=== PATIENT | male | born 1940 | race Caucasian/White ===

== ENCOUNTER 2019-06-28 05:36 | Outpatient (RCR) | payer MEDICARE, SELFPAY | END 2019-07-20 00:01 | LOC: ONCMED 05:36 | PROVIDERS: Family Provider Family Medicine; PCP Radiology Radiation Oncology; Visit Provider Internal Medicine Medical Oncology | DX: C34.11 Malignant neoplasm of upper lobe, right bronchus or lung (principal); Z85.810 Personal history of malignant neoplasm of tongue; R60.0 Localized edema; D69.6 Thrombocytopenia, unspecified; I10 Essential (primary) hypertension; E78.5 Hyperlipidemia, unspecified; E03.9 Hypothyroidism, unspecified; I48.20 Chronic atrial fibrillation, unspecified; Z79.01 Long term (current) use of anticoagulants; Z92.21 Personal history of antineoplastic chemotherapy; Z92.3 Personal history of irradiation; Z86.79 Personal history of other diseases of the circulatory system | CPT/HCPCS: 36415; 71260; 80053; 85025; 99213 ×2; Q9967 ==

== ENCOUNTER 2019-09-23 10:15 | Outpatient (CLI) | payer MEDICARE, SELFPAY ==
[2019-09-23 11:44] LABS: Basophils % 0.5 %; Eosinophils # 0.3 10^3/uL (0.0-0.8); Eosinophils % 7.7 %; Hematocrit 38.6 % (42.0-52.0); Hemoglobin 12.3 g/dL (11.7-16.6); Lymphocytes # 0.8 10^3/uL (0.8-4.8); Lymphocytes % 20.9 %; Mean Corpuscular HGB Conc 31.9 g/dL (30.0-36.0); Mean Corpuscular Hemoglobin 32.4 pg (28.0-34.0); Mean Corpuscular Volume 101.6 fL (80-94); Mean Platelet Volume 10.9 fL (7.4-10.4); Monocytes # 0.3 10^3/uL (0.2-0.9); Monocytes % 6.2 %; Neutrophils # 2.6 10^3/uL (1.8-7.7); Neutrophils % 64.5 %; Nucleated Red Blood Cells % 0 %; Platelet Count 113 10^3/cmm (130-400); Red Cell Distribution Width 14.5 % (12.1-15.1)
[2019-09-23 12:21] LABS: Alanine Aminotransferase 14 U/L (0-41); Albumin Level 4.1 g/dL (3.5-5.2); Alkaline Phosphatase 98 IU/L (40-130); Anion Gap 15.2 (5-19); Aspartate Amino Transferase 22 U/L (0-40); Blood Urea Nitrogen 18 mg/dL (8-23); Calcium 10.2 mg/dL (8.5-10.5); Carbon Dioxide 24 mmol/L (22-29); Chloride 104 mmol/L (98-107); Globulin 3.4 g/dL (1.3-4.6); Glucose 101 mg/dL (65-115); Potassium 4.2 mmol/L (3.5-5.1); Sodium 139 mmol/L (136-145); Total Bilirubin 0.4 mg/dL (0.15-1.2); Total Protein 7.5 g/dL (6.6-8.7)
== END 2019-09-23 10:16 | disposition home or self-care (01) ==
LOC: ONCMED 12:13
PROVIDERS: Family Provider Family Medicine; Visit Provider Internal Medicine Medical Oncology
DX: C34.11 Malignant neoplasm of upper lobe, right bronchus or lung (principal)
CPT/HCPCS: 80053; 85025

== ENCOUNTER 2019-09-24 08:32 | Outpatient (CLI) | payer MEDICARE, SELFPAY ==
--- NOTE | 2019-09-24 08:38 | CT_ITS ---
WS: [id number] CT CHEST TECHNIQUE: Contrast enhanced CT of the chest with coronal and sagittal reformatted images. CLINICAL INFORMATION: MALIGNANT NEOPLASM OF LUNG COMPARISON: CT June 24, 2019 DLP: 985.[address] scans at [facility] use at least one of these dose optimization techniques: automat ed exposure control; mA and/or kV adjustment per patient size (includes targeted exams where dose is matched to clinical indication); or iterative reconstruction. FINDINGS: Again seen is the spiculated right upper lobe neoplasm today measuring 2.0 x 1.5 cm decreased in size from previous. Previously this measured 2.6 x 1.6 cm. Surrounding consolidation and air bronchograms are similar in appearance with fibrosis in the right lung apex. Associated parenchymal scarring. Sub segmental atelectasis along the right upper lobe hilum and superior segment right lower lobe are samantha lar in appearance. Left lung is well aerated. Cardiomegaly. Calcified hilar nodes. No new mediastinal or hilar lymphaden opathy. Coronary calcification. Sternotomy. Small esophageal hiatal hernia. Small left adrenal nodule measuring 11 mm likely adenoma unchanged. Hypertrophic changes thoracic spine. Small pericardial eff usion/pericardial thickening is similar in appearance. CT/CT chest w con* [id number] IMPRESSION: 1. Interval improvement in the right upper lobe neoplasm with dominant mass to day measuring 1.5 x 2.0 CM. 2. Stable parenchymal fibrosis with surrounding consolidation and air bronchog jovany in the right upper lobe medially and superior segment of the adjacent righ t lower lobe. 3. Right hilar thickening/lymphadenopathy unchanged. 4. Moderate to advanced chronic emphysematous changes. 5. Stable left adrenal adenoma. 6. Small esophageal hiatal hernia.
[2019-09-24] MEDS: iodixanol 320 mg/mL 100mL Btl IV (08:55)
== END 2019-09-24 08:33 | disposition home or self-care (01) ==
LOC: ONCMED 08:34
PROVIDERS: Family Provider Family Medicine; PCP Family Medicine; Visit Provider Radiology Radiation Oncology
DX: C34.11 Malignant neoplasm of upper lobe, right bronchus or lung (principal); J43.9 Emphysema, unspecified; D35.02 Benign neoplasm of left adrenal gland; K44.9 Diaphragmatic hernia without obstruction or gangrene; Z92.21 Personal history of antineoplastic chemotherapy; Z92.3 Personal history of irradiation
CPT/HCPCS: 71260; Q9967

== ENCOUNTER 2019-09-27 10:05 | Outpatient (CLI) | payer MEDICARE, SELFPAY ==
--- NOTE | 2019-09-27 12:34 | ONCRAD EPV_ITS ---
Radiation Oncology Established Patient Visit Patient: Adilia MR#: [id number] : 1940> Age: 79> Sex: Male> Dictated by: Dr. Dallin Gonzalez Date of Service: 09/27/2019 Referring Physician(s) : Dr. 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 He has had several follow up evaluations by Dr. Keene and Dr. Santacruz, with no evidence of tumor progression. . Current Medications: Allopurinol, atorvastatin Calcium, cARBOplatin, cefTRIAXone Sodium, dexamethasone, dexamethasone Sodium Phosphate, diltiaZEM CD, diphenhydrAMINE HCl, famotidine in NaCl, furosemide, klor-Con M10, levalbuterol Tartrate, levaquin, levothyroxine Sodium, lisinopril, metoprolol Tartrate, miraLax, nitroglycerin, pACLitaxel, palonosetron HCl, prochlorperazine Maleate, tamsulosin HCl, warfarin Sodium, zithromax. Vital Signs: Performed on 09/27/2019 10:40 AM Height - 71.00 in, Weight - 249.4 lbs (high), BSA - 2.32 sq.m, BMI - 34.78 (high), Temperature - 97.6 f (low), Pulse - 68 /min, Respiration - 26 /min, O2 Sat - 96 %, Pain - 0 and BP - 94/ 69 mm(hg). Physical Exam: General: Elderly gentleman, lert and oriented.. No acute distress. HEENT: Oral cavity is clear without lesions, masses or ulcers. Orpharynx normal to clinical evaluation. NECK: Supple without susubmandibular, jugular or supraclavicular lymphadenopathy. LUNGS: Clear to auscultation bilaterally without rales, rhonchi or wheeze. MUSCULOSKELETAL: No tenderness or percussion pain over the axial skeleton, scapulae or pelvis. ABDOMEN: Not examined. EXTREMITIES: Limited motor and sensory examination are grossly intact and symmetric bilaterally. Lab: None pending. Test performed on 09/23/2019 9:20 AM Creatinine - 1.3 mg/dl (high), Test performed on 09/23/2019 10:15 AM RBC - 3.80 10 6/ul (low), HCT - 38.6 % (low), MCV - 101.6 fl (high), Platelet Count - 113 10 3/cmm (low) and MPV - 10.9 fl (high). Pathology- malignant neoplasm of upper lobe, right bronchus of lung, Diagnosed 12/16/2018 (active) stage ib, t2a, n0, m0, Primary, r91.1 - solitary pulmonary nodule, Diagnosed 10/18/2016 (active), malignant neoplasm of base of tongue, Diagnosed 06/18/2016 (active) stage xT3N0, mx, Imaging Studies CT scan of the chest performed on 09-24-19 showed speculated right upper lobe neoplasm 2.0 X 1.5 cm, decreasing from 2.6 X 1.6 cm. Changes suggesting fibrosis in RUL Left lung is well aireated. Small left adrenal nodule, a11 mm, unchanged, likely adenoma. Advanced chronic emphysematous changes. Small hiatal hernia.. Impression: Base of the tongue neoplasm with no clinically apparent tumor recurrence. Continuous regression of RUL neoplasm. Disposition Patient scheduled with Dr. Santacruz in 6 months. We will give him appointment to see Dr. García following Mr. Yusuf visit with Dr. Santacruz Time spent with patient- 20 minutes. Preparation of follow up note- 30 minutes. Signed by: 09/27/2019 12:32:52 PM <<Signature on File>> Time spent with patient: CPT Code: CPT Code:
--- NOTE | 2019-09-28 08:00 | ONC FU_ITS ---
Dr. Santacruz Patient Follow-Up Note Patient: Turner Llanos Unit #: [id number]: 1940 Dicatated By: Jb Santacruz M.D.Date of Visit:Sep 27, 2019 Onc Med Follow-up/Prog Note Chief Complaint: Oral pharyngeal carcinoma/lung cancer. 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 By clinical evaluation the lung cancer was stage IB (T2a, N0, M0). He had initially presented to Dr. Nichols with hemoptysis, which had started back in February 2016. He was referred to Dr. Trevizo. Had evaluation with chest CT on 04/25/2016. It showed a right apical subpleural nodule subjacent to the right innominate artery. It measured 2 x 2 centimeters. There is no associated hilar or mediastinal adenopathy and there is no evidence of other metastatic disease. He had further evaluation with PET/CT on 05/04/2016. It showed an FDG avid 2 cm nodule in the right lung apex, SUV 5.9. Also noted was a hypermetabolic focus in the left base of tongue, SUV 15.6. There was no associated cervical, clavicular, mediastinal, or hilar adenopathy. He was referred to Dr. Keene. On 06/18/2016 he underwent microdirect laryngoscopy. He was noted to have an ulcerated lesion at the left base of tongue. Biopsy showed invasive moderately differentiated squamous cell carcinoma, P 16 positive. He was then referred to Dr. Eduardo in [place]. he had further evaluation with CT and MRI of the neck. On 08/28/2016 he underwent direct laryngoscopy, bronchoscopy, and cervical esophagoscopy. He was found to have a friable tumor involving the bilateral base of tongue with extension into the vallecula. It was inseparable from the lingual surface of the epiglottis. There was normal-appearing glottic larynx, piriform sinuses, trachea, and first order bronchi, and cervical esophagus. Biopsies from both left and right base of tongue again showed invasive moderately differentiated squamous cell carcinoma. He was then referred to Dr. Madrigal for further evaluation of the pulmonary nodule. Patient reportedly declined to have a lung biopsy due to the associated risk involved. Patient was deemed inoperable due to the local extent of the tumor and his underlying comorbidities. He was seen by Dr. García for consideration of chemoradiation for the oral pharyngeal cancer and for possible SBRT to the lung lesion. He then began radiation concurrently with high-dose cisplatin chemotherapy, cycle 1 day 1 on 10/28/2016. He tolerated his initial dose of chemotherapy without acute toxicity, but his further chemotherapy was held due to prolonged neutropenia. He was able to continue his radiation. He completed treatment on 12/13/2016 to a total dose of 7000 cGy. He did experience significant local toxicity, mainly severe sore throat and difficulty swallowing. He was treated empirically with fluconazole, which did cause a significant increase in his INR, but that subsequently resolved. He did not experience any bleeding or other complications. He had gradual resolution of his treatment related toxicity. His repeat chest CT on 01/27/2017 showed 8 mm pulmonary nodule at the right apex. It appeared stable compared to the PET/CT from October 2016, but it had decreased in size compared to the chest CT from April 2016. Restaging CT scans of the neck and chest on 07/02/2017 showed post treatment related radiation changes within the soft tissues of the neck, but with no cervical lymphadenopathy or other evidence of disease progression. The right upper lobe pulmonary nodule had increased significantly, to 1.7 x 2.1 cm. It was noted that the location would not likely be amenable to CT directed needle biopsy. Follow-up chest CT on 09/08/2018 showed further increase in the right upper lobe mass to 3.2 x 2.0 cm. It was noted to abut the mediastinal structures. Subcentimeter mediastinal and hilar lymph nodes were noted to be very similar in appearance to the prior study from June 2017. A restaging PET/CT on 09/26/2018 showed FDG avid right upper lobe mass measuring 3.5 x 3.1 cm, SUV 13.2, consistent with malignancy. There was no suspicious mediastinal adenopathy and there was no evidence of for recurrence of disease at the base of the tongue. He was again referred to Dr. Per Ledezma, and on 11/27/2018 he underwent bronchoscopy with transbronchial biopsy from the right upper lobe apical segment and EBUS with FNA biopsies of station 7 and station 4R lymph nodes. The trans-bronchial right upper lobe biopsy showed invasive moderately differentiated squamous cell carcinoma. The FNA lymph node biopsies were nondiagnostic. He began radiation concurrently with weekly carboplatin/Taxol chemotherapy on 12/21/2018. As of week 3 his chemotherapy was put on hold due to a drop in the neutrophil count to 1200. He was able to continue the radiation. He completed treatment on 02/08/2019. Due to his having stopped chemotherapy the total dosage was increased to 7000 cGy. During the radiation he did require antibiotic therapy for pneumonia. A follow-up chest CT on 03/23/2019 showed decrease in the size of the right upper lobe neoplasm measuring 2.3 x 3.7 x 2.9 cm. Also noted was improved postobstructive pneumonia in the right upper lobe laterally, but with persistent infiltrate and air bronchograms. There was patchy groundglass infiltrate in the right lower lobe which appeared to have progressed from the previous study. A left adrenal gland nodule appeared stable. He was recommended to continue observation/expectant management. Restaging PET/CT on 06/24/2019 showed interval improvement in the right upper lobe neoplasm measuring 1.6 x 2.6 cm. There did appear to be increased subsegmental atelectasis and consolidation in the right upper lobe medially and in the superior segment of the right lower lobe medially. There was resolution of previously described hazy groundglass infiltrates in the right lower lobe. The left adrenal lesion appeared stable, consistent with adenoma. There was no evidence of disease progression. He continued on observation/expectant management for the head/neck and the lung cancers. In April 2019 he had another episode of visual loss in the left eye. His head MRI showed foci of remote lacunar infarcts, but there were no acute findings and there was no evidence of metastatic disease. Carotid Doppler study showed no evidence of significant carotid artery stenosis. His other medical illnesses include hypertension, hyperlipidemia, and hypothyroidism. 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 He has chronic atrial fibrillation and chronic lower extremity edema. He also has a history of chronic thrombocytopenia. He is a nonsmoker. He does not drink alcohol. INTERIM HISTORY: Surveillance chest CT on 09/24/2019 showed interval improvement in the right upper lobe neoplasm with the dominant mass measuring 1.5 x 2.0 CM. There was stable parenchymal fibrosis with surrounding consolidation and air bronchograms in the right upper lobe medially and in the superior segment of the adjacent right lower lobe. Right hilar thickening/lymphadenopathy also appeared unchanged. He is seen a follow-up visit. He says he has been feeling fine. He says he does like to rest. His activity is limited to due weakness in his legs. He is doing light work. His ECOG score is 1. He has good appetite and his weight is stable. He has no fever or night sweats. He complains that his nose gets stuffed. He has just occasional cough. His breathing has been OK, but he sometimes has wheezing at night. He does not complain of chest pain. He has no GI complaints. Bladder function has been adequate with tamsulosin. He still has pain in his right shoulder and he also has pain in his knees. He does not complain of headache. He occasionally has dizziness. He has had no further episodes of visual loss. He complains that his legs get weak with activity. Medications: Allopurinol 1 Tablet (of 100 mg) Oral daily, Atorvastatin Calcium 0.5 Tablet (of 20 mg) Oral daily, DiltiaZEM CD 1 Capsule (of 240 mg) Capsule SR 24 HR Oral daily, Furosemide 1 (40 mg) Tablet Oral daily, Klor-Con M10 1 Tablet (of 20 meq) Tablet, controlled release Oral daily, Levalbuterol Tartrate 1 puff(s) (of 45 mcg/act) Aerosol Inhalation q 6 hours PRN, Levothyroxine Sodium 1 Tablet (of 125 mcg) Oral daily, Lisinopril 1 Tablet (of 2.5 mg) Oral daily, Metoprolol Tartrate 1 Tablet (of 50 mg) Oral b.i.d., MiraLax Pack Oral daily PRN, Nitroglycerin Tablet, sublingual Sublingual PRN, Tamsulosin HCl 2 (0.4 mg) Capsule Oral daily, Warfarin Sodium (5 mg) Tablet Oral Take as Directed Allergies: No Known Allergies. Review of Systems: Constitutional - His energy is about the same. He likes to rest. He has limited activity due to weakness in his legs, but he is still doing light work. His appetite is good and his weight is stable. No fever or night sweats. ECOG score is 1, Eyes - He had temporary loss of vision from the left eye, presumed to be due to stroke/TIA, ENMT - He complains that his nose gets stuffed. No mouth sores. No sore throat or difficulty swallowing, Hematologic/Lymphatic - No abnormal bruising or bleeding, Respiratory - No shortness of breath. He sometimes has wheezing at night. He has occasional cough. No pleuritic pain or hemoptysis, Cardiovascular - No angina pain. No palpitations, Gastrointestinal - No nausea or vomiting. No heartburn or acid reflux. No diarrhea or constipation. No blood in the stool or black stools, Genitourinary (M) - No dysuria or hematuria. No urinary frequency. No urgency or incontinence, Musculoskeletal - He has had ongoing problems with pain in his right shoulder since the radiation. He also has pain in his knees. His legs get weak with activity, Neurologic - No headache. He occasionally has dizziness. No numbness/paresthesias. He had sudden visual loss in the left eye, which resolved. He has had no other focal neurologic symptoms, Psychiatric - No anxiety or depression. No insomnia. Vital Signs: Performed on Sep 27, 2019 10:40 Height - 71.00 in Weight - 249.4 lbs (HIGH) BSA - 2.32 sq.m BMI - 34.78 (HIGH) Temperature - 97.6 F (LOW) Pulse - 68 /min Respiration - 26 /min BP - 94/69 mm(hg) O2 Sat - 96 % Pain - 0 Physical Examination: Constitutional - He appears somewhat weak generally, Eyes - Sclerae nonicteric. Conjunctivae clear, ENMT - No lesions noted in the oral cavity, Hematologic/Lymphatic - No cervical, clavicular, or axillary adenopathy noted, Respiratory - Lungs show diminished air movement and slightly coarse breath sounds bilaterally. There is no wheezing, Cardiovascular - Heart rhythm is irregular. The rate is controlled. There is a II/ systolic murmur. There is no gallop or rub noted, Abdomen - Soft. Liver and spleen are not enlarged. There is no abdominal mass or ascites noted and there is no inguinal adenopathy, Extremities - He has limited range of motion at the right shoulder joint. There are venous stasis changes bilaterally. There is 2+ lower extremity edema. He has good dorsalis pedis pulses bilaterally, Neurologic - No focal neurologic deficits noted. Lab/Imaging: Test performed on Sep 23, 2019 10:15 WBC 4.0 10 3/uL RBC 3.80 10 6/uL HGB 12.3 g/dL HCT 38.6 % MCV 101.6 fL MCH 32.4 pg MCHC 31.9 g/dL RDW 14.5 % Platelet Count 113 10 3/cmm MPV 10.9 fL Neutrophils 2.6 10 3/uL Lymphocytes 0.8 10 3/uL Monocytes 0.3 10 3/uL Eosinophils 0.3 10 3/uL Basophils 0.0 10 3/uL Neutrophil % 64.5 % Lymphocyte % 20.9 % Monocyte % 6.2 % Eosinophil % 7.7 % Basophils % 0.5 % Test performed on Sep 23, 2019 09:20 Sodium 139 mmol/L Potassium 4.2 mmol/L Chloride 104 mmol/L CO2 24 mmol/L Anion Gap 15.2 BUN 18 mg/dL Creatinine 1.3 mg/dL Cr Clearance (Est) 70.9700 mL/min Glucose 101 mg/dL Calcium 10.2 mg/dL Protein, Total 7.5 g/dL Albumin 4.1 g/dL Globulin 3.4 g/dL Bilirubin, Total 0.4 mg/dL ALT (SGPT) 14 U/L AST (SGOT) 22 U/L Alkaline Phosphatase 98 IU/L Impression: 1. Patient with enlarging, FDG avid solitary pulmonary nodule in the upper lobes the right lung, confirmed to be moderately differentiated squamous cell carcinoma. By clinical evaluation his disease was stage IB (T2a, N0, M0). It appeared to be inoperable due to its location adjacent to mediastinal structures. 2. 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 He underwent radiation concurrently with high-dose cisplatin chemotherapy. He completed his radiation on 12/13/2016 to a total dose of 7000 cGy. He received day 1 cisplatin only, as further chemotherapy was held due to persistent neutropenia. He appeared to have a complete response by follow-up PET/CT studies. His other medical illnesses include: 3. Hypertension. 4. Hyperlipidemia. 5. Hypothyroidism. 6. Chronic atrial fibrillation, on anticoagulation with warfarin. 7. He underwent aortic valve repair and repair of thoracic aortic aneurysm in May 2013. 8. He has chronic lower extremity edema. 9. He has a history of chronic thrombocytopenia. He began radiation concurrently with weekly carboplatin/Taxol chemotherapy on 12/21/2018. His chemotherapy was put on hold at week 3 due to neutropenia. He continued radiation. He completed treatment on 02/08/2019. Due to his having stopped chemotherapy, the total dosage was increased to 7000 cGy. During the radiation he had required antibiotic therapy for pneumonia. A repeat chest CT on 04/02/2019 did show some decrease in the size of the right upper lobe neoplasm, and there was improved postobstructive pneumonia, though with persistent infiltrate and air bronchograms. He was then followed on observation/expectant management. During followup he has had persistent pain and limited range of motion at the right shoulder. He has had limited activity tolerance due to weakness in his legs. His surveillance CT scans have shown further decrease in the right upper lobe pulmonary nodule. Overall, he has been doing pretty well clinically with no evidence of recurrence/progression of the head/neck or the lung cancers. Plan: He remains on observation/expectant management. I will see him again in 6 months. Signed By: Jb Santacruz M.D. <<Signature on File>>
== END 2019-09-27 10:06 | disposition home or self-care (01) ==
PROVIDERS: Family Provider Family Medicine; PCP Family Medicine; Visit Provider Internal Medicine Medical Oncology
DX: C34.11 Malignant neoplasm of upper lobe, right bronchus or lung (principal); Z85.810 Personal history of malignant neoplasm of tongue; D35.02 Benign neoplasm of left adrenal gland; I10 Essential (primary) hypertension; E78.5 Hyperlipidemia, unspecified; E03.9 Hypothyroidism, unspecified; I48.20 Chronic atrial fibrillation, unspecified; R60.0 Localized edema; D69.6 Thrombocytopenia, unspecified; J43.9 Emphysema, unspecified; K44.9 Diaphragmatic hernia without obstruction or gangrene; Z79.01 Long term (current) use of anticoagulants; Z92.3 Personal history of irradiation; Z92.21 Personal history of antineoplastic chemotherapy; Z87.01 Personal history of pneumonia (recurrent); Z95.2 Presence of prosthetic heart valve
CPT/HCPCS: 99213; G0463

== ENCOUNTER 2019-10-24 12:57 | Emergency (ER) | payer MEDICARE, SELFPAY ==
[2019-10-24 12:58] VITALS: BMI 34.5
--- NOTE | 2019-10-24 12:58 | ECG_ITS ---
Measurements Intervals [place] Rate: 68 P: WA: 0 QRS: 76 QRSD: 96 T: 63 QT: 412 QTc: 441 ATRIAL FIBRILLATION LOW QRS VOLTAGE IN EXTREMITY LEADS [QRS DEFLECTION < 0.5 mV IN LIMB LEADS] ABNORMAL RHYTHM ECG Compared to ECG 02/25/2019 14:49:23 Left-axis deviation no longer present Myocardial infarct finding no longer present Electronically Signed On 10-24-2019 21:11:54 CDT by Jean Robles M.D. [email or web address]
[2019-10-24 13:03] VITALS: BP 111/81; PULSE 73; RESP 20; TEMP 36.7; O2SAT 94
--- NOTE | 2019-10-24 13:08 | CTR_ITS ---
PROCEDURE INFORMATION: Exam: CT Head Without Contrast Exam date and time: 10/24/2019 1:26 PM Age: 79 years old Clinical indication: Patient HX: C/O dizziness x 2 days TECHNIQUE: Imaging protocol: Computed tomography of the head without contrast. Total DLP: 1920.07 mGy-cm Radiation optimization: All CT scans at this facility use at least one of these dose optimization techniques: automated exposure control; mA and/or kV adjustment per patient size (includes targeted exams where dose is matched to clinical indication); or iterative reconstruction. COMPARISON: MRI Head w/wo* [id number] 05/14/2019 1:34 PM FINDINGS: Brain: Symmetric prominence of the cortical sulci. Small-vessel ischemic change with multiple lacunar infarcts. No acute cortical infarct, mass effect, or intracranial hemorrhage. Ventricles: Normal configuration of the ventricles. Bones/joints: No acute calvarial pathology. Sinuses: No sinus fluid. Mastoid air cells: No mastoid effusion. Soft tissues: Unremarkable soft tissues. Vasculature: Vascular calcification. CT/CT head wo con* [id number] IMPRESSION: Atrophy and multifocal small-vessel ischemic change. Radiation Dose CTDIVOL = (mGy): DLP = 1920.07 (mGy-cm)
--- NOTE | 2019-10-24 13:10 | W.ED.DIZZY ---
HPI - Dizziness General: Chief Complaint: Dizziness Stated Complaint: DIZZY Time Seen by Provider: 10/24/19 12:59 Source: patient and EMS Mode of arrival: EMS Limitations: no limitations History of Present Illness: HPI Narrative: Patient is an 79-year-old male states he has been having generalized dizziness over the last 2 days. He states he just feels weak at times. Tried to get further history patient is a poor historian. He is unable to explain if he feels like the room spinning or if he is going to pass out. He states he was mainly concerned because he took his blood pressure at home and it was in the 60s. Pressures been normal by ambulance and here. He was using a wrist cuff at home. He denies any chest pain or shortness of breath. He denies any fever. He did have radiation states he has had some wheezing since then. He used albuterol states he ran out of his inhaler. MD elicited complaint: dizziness Onset (ago): day(s) Timing: gradual onset Severity: mild Exacerbating factors: nothing Relieving factors: nothing Associated symptoms: Denies chest pain, chills, headache(s), nausea or vomiting Review of Systems Const: Denies: fever, chills, body aches or change in appetite Eyes: Denies: blurry vision or eye discomfort ENMT: Denies: throat pain or dental pain Card: Denies: chest pain Resp: Denies: shortness of breath GI: Denies: abdominal pain, nausea, vomiting or diarrhea : Denies: painful urination Musc: Denies: neck pain or back pain Skin/Breast: Denies: rash Neuro: Reports: dizziness; Denies: headache Psych: Denies: depression Wesley/Lymph: Denies: easy bruising All/Imm: Denies: hives [facility] PFSH: Social History Smoking and tobacco status: never smoked Physical Exam Const: COMMON NORMALS: no apparent distress, oriented x3 and healthy appearing HENMT: COMMON NORMALS: normocephalic and head/scalp atraumatic HEAD & SCALP: normocephalic and atraumatic Eye: COMMON NORMALS: PERRL and EOMs intact bilaterally PUPIL: Yes PERRL Neck/C-Spine: COMMON NORMALS: full ROM and supple Chest: COMMONS NORMALS: inspection of chest normal and palpation of chest normal Resp: COMMON NORMALS: normal respiratory effort, no retractions and no use of accessory muscles AUSCULTATION: wheezes Cardio: COMMON NORMALS: regular rate, regular rhythm and no murmurs RATE: regular rate RHYTHM: regular rhythm GI: COMMON NORMALS: normal to inspection, nondistended, normoactive bowel sounds, soft to palpation, non-tender and no masses PALPATION: Yes soft Extremity: COMMON NORMALS: normal to inspection and full ROM Neuro: COMMON NORMALS: oriented x3, moves all extremities and no focal motor deficits Psych: COMMON NORMALS: mental status grossly normal, thought process normal and cooperative THOUGHT PROCESS: normal thought process Skin: COMMON NORMALS: no rashes or lesions noted and no wounds GENERAL SKIN EXAM: no rashes or lesions noted Course Vital Signs: Vital signs: Vital Signs Temperature 98.1 F 10/24/19 13:03 Pulse Rate 90 10/24/19 15:12 Respiratory Rate 18 10/24/19 15:12 Blood Pressure 123/85 10/24/19 15:12 Pulse Oximetry 96 10/24/19 15:12 MDM - Dizziness MDM Narrative: Medical decision making narrative: Patient presents with dizziness likely some vertigo in nature. Patient's symptoms resolved with meclizine and he is able to ambulate the halls without any difficulties. Patient's lab work here is normal. X-ray does show some increased lung markings likely from his radiation. He does have some wheezing but he has had no cough or fever. Will give him a steroid along with albuterol Hayter and antibiotics. He is to follow-up with his oncologist in 3 to 7 days and return to the ER if worsening. He understands and agrees to plan. Lab Data: Labs: Lab Results 10/24/19 10/24/19 Range/Units 13:15 13:15 WBC 3.6 L (4.0-10.0) 10^3/ uL RBC 3.54 L (4.1-5.3) 10^6/u L Hgb 11.4 L (11.7-16.6) g/dL Hct 36.7 L (42.0-52.0) % MCV 103.7 H (80-94) fL MCH 32.2 (28.0-34.0) pg MCHC 31.1 (30.0-36.0) g/dL RDW 14.7 (12.1-15.1) % Plt Count 102 L (130-400) 10^3/c mm MPV 10.2 (7.4-10.4) fL Neut % (Auto) 74.8 % Lymph % (Auto) 12.0 % [place] % (Auto) 5.6 % Eos % (Auto) 6.7 % Baso % (Auto) 0.6 % Neut # (Auto) 2.7 (1.8-7.7) 10^3/u L Lymph # (Auto) 0.4 L (0.8-4.8) 10^3/u L [place] # (Auto) 0.2 (0.2-0.9) 10^3/u L Eos # (Auto) 0.2 (0.0-0.8) 10^3/u L Baso # (Auto) 0.0 (0.0-0.1) 10^3/u L Nucleated RBC % (a uto) 0 % Nucleated RBCs # 0.0 /100WBC Sodium 133 L (136-145) mmol/L Potassium 4.4 (3.5-5.1) mmol/L Chloride 98 (98-107) mmol/L Carbon Dioxide 24 (22-29) mmol/L Anion Gap 15.4 (5-19) BUN 15 (8-23) mg/dL Creatinine 1.3 H (0.7-1.2) mg/dL Glucose 119 H (65-115) mg/dL Calculated Osmolal ity 273 L (285-295) mOsm/k g Calcium 10.1 (8.5-10.5) mg/dL Total Bilirubin 0.5 (0.15-1.2) mg/dL AST 27 (0-40) U/L ALT 17 (0-41) U/L Alkaline Phosphata se 97 (40-130) IU/L Total Protein 7.0 (6.6-8.7) g/dL Albumin 3.9 (3.5-5.2) g/dL Globulin 3.1 (1.3-4.6) g/dL Imaging Data^: CT Head: Attestation: I personally reviewed and interpreted this imaging study as follows: Radiologist's impression: [facility] [address] [place] [address] CT Scan Report Signed Patient: Turner Llanos Unit #: [id number] : 1940 Age/Sex: 79 / M ADM Date: 10/24/19 Loc: ER Room/Bed: Attending Dr: Ordering Provider/Ordering MD: Laura Chavez MD Date of Service: 10/24/19 Procedure(s): CT head wo con* [id number] Accession Number(s): [id number] Report Number: [id number] PROCEDURE INFORMATION: Exam: CT Head Without Contrast Exam date and time: 10/24/2019 1:26 PM Age: 79 years old Clinical indication: Patient HX: C/O dizziness x 2 days TECHNIQUE: Imaging protocol: Computed tomography of the head without contrast. Total DLP: 1920.07 mGy-cm Radiation optimization: All CT scans at this facility use at least one of these dose optimization techniques: automated exposure control; mA and/or kV adjustment per patient size (includes targeted exams where dose is matched to clinical indication); or iterative reconstruction. COMPARISON: MRI Head w/wo* [id number] 05/14/2019 1:34 PM FINDINGS: Brain: Symmetric prominence of the cortical sulci. Small-vessel ischemic change with multiple lacunar infarcts. No acute cortical infarct, mass effect, or intracranial hemorrhage. Ventricles: Normal configuration of the ventricles. Bones/joints: No acute calvarial pathology. Sinuses: No sinus fluid. Mastoid air cells: No mastoid effusion. Soft tissues: Unremarkable soft tissues. Vasculature: Vascular calcification. CT/CT head wo con* [id number] IMPRESSION: Atrophy and multifocal small-vessel ischemic change. 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 EKG Data^: EKG 1: Attestation: I personally reviewed and interpreted this EKG as follows: EKG interpretation date: 10/24/19 EKG interpretation time: 13:16 Interpretation: afib hr [address] or t wave abnormalities qrs 96 qtc 430 Discharge Plan Discharge Patient Disposition: Home, Self-Care Clinical Impression: Dizziness, Bronchitis Condition: Stable Prescriptions: New albuterol sulfate 90 mcg/actuation HFA aerosol inhaler 2 inh INHALATION Q6H Qty: 8 RF: 0 doxycycline hyclate 100 mg capsule 100 mg PO BID 10 Days Qty: 20 RF: 0 No Action lisinopril 2.5 mg tablet 2.5 mg PO DAILY Qty: 90 RF: 3 furosemide 40 mg tablet 40 mg PO DAILY RF: 0 atorvastatin 20 mg tablet 10 mg PO DAILY RF: 0 Cartia XT 240 mg capsule,extended release 24hr 240 mg PO DAILY RF: 0 allopurinol 100 mg tablet 100 mg PO DAILY RF: 0 tamsulosin 0.4 mg capsule 0.8 mg PO DAILY RF: 0 levothyroxine 125 mcg tablet 125 mcg PO QAM RF: 0 warfarin 5 mg tablet See Rx Instructions .ROUTE .COMPLEX RF: 0 metoprolol tartrate 50 mg tablet 50 mg PO BID RF: 0 potassium chloride 20 mEq tablet extended release 20 meq PO DAILY RF: 0 Discharge Orders: Discharge Order (Routine); Ordered 10/24/19 Ordered By: Laura Chavez Referrals: Miguel Nichols [Primary Care Provider] - Discharge Diet: Advance as tolerated Discharge Activity: Resume usual activity Patient Instructions: Acute Bronchitis (ED), Dizziness (ED) Discharge Date/Time: 10/24/19 15:47 Coding Level of Care Code 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
[2019-10-24 13:19] VITALS: BP 108/82; BP 115/78; BP 118/73; PULSE 68; PULSE 70; PULSE 82
[2019-10-24] MEDS: sodium chloride 0.9% 500 ML IV (13:27)
[2019-10-24] MEDS: meclizine 25 mg tablet PO (13:27)
[2019-10-24 13:28] LABS: Basophils % 0.6 %; Eosinophils # 0.2 10^3/uL (0.0-0.8); Eosinophils % 6.7 %; Hematocrit 36.7 % (42.0-52.0); Hemoglobin 11.4 g/dL (11.7-16.6); Lymphocytes # 0.4 10^3/uL (0.8-4.8); Mean Corpuscular HGB Conc 31.1 g/dL (30.0-36.0); Mean Corpuscular Hemoglobin 32.2 pg (28.0-34.0); Mean Corpuscular Volume 103.7 fL (80-94); Mean Platelet Volume 10.2 fL (7.4-10.4); Monocytes # 0.2 10^3/uL (0.2-0.9); Monocytes % 5.6 %; Neutrophils # 2.7 10^3/uL (1.8-7.7); Neutrophils % 74.8 %; Nucleated Red Blood Cells % 0 %; Platelet Count 102 10^3/cmm (130-400); Red Blood Count 3.54 10^6/uL (4.1-5.3); Red Cell Distribution Width 14.7 % (12.1-15.1); White Blood Count 3.6 10^3/uL (4.0-10.0)
--- NOTE | 2019-10-24 13:42 | XR_ITS ---
WS: [id number] CHEST XRAY TECHNIQUE: Portable chest. CLINICAL INFORMATION: dissiness COMPARISON: April 12, 2019 FINDINGS: Heart: Cardiomegaly. Sternotomy. Lungs: Chronic emphysematous changes. Slight right suprahilar interstitial infiltrates.a Right axilla ry clips. Bones: Normal visualized bony structures. XR/XR chest 1V portable [id number] IMPRESSION: 1. Sternotomy with cardiomegaly. 2. Chronic emphysematous changes. 3. Slight patchy right suprahilar interstitial infiltrates. Recommend correlat ion for pneumonitis. No focal pneumonia.
[2019-10-24 13:52] LABS: Alanine Aminotransferase 17 U/L (0-41); Albumin Level 3.9 g/dL (3.5-5.2); Alkaline Phosphatase 97 IU/L (40-130); Anion Gap 15.4 (5-19); Aspartate Amino Transferase 27 U/L (0-40); Blood Urea Nitrogen 15 mg/dL (8-23); Calcium 10.1 mg/dL (8.5-10.5); Carbon Dioxide 24 mmol/L (22-29); Chloride 98 mmol/L (98-107); Globulin 3.1 g/dL (1.3-4.6); Glucose 119 mg/dL (65-115); Osmolality Calculated 273 mOsm/kg (285-295); Potassium 4.4 mmol/L (3.5-5.1); Sodium 133 mmol/L (136-145); Total Bilirubin 0.5 mg/dL (0.15-1.2)
[2019-10-24 14:33] VITALS: BP 119/85; PULSE 71; RESP 20; O2SAT 94
[2019-10-24] MEDS: ipratropium-albuterol 3 mL Neb INHALATION (14:50)
[2019-10-24 14:52] VITALS: PULSE 72; RESP 18; O2SAT 96
[2019-10-24] MEDS: dexamethasone 10 mg/mL INJ IVP (15:10)
[2019-10-24 15:12] VITALS: BP 123/85; PULSE 90; RESP 18; O2SAT 96
== END 2019-10-24 15:47 | disposition home or self-care (01) ==
PROVIDERS: Nurse Practitioner Family; Emergency Provider Emergency Medicine; Family Provider Family Medicine; PCP Family Medicine
DX: R42 Dizziness and giddiness (principal); J40 Bronchitis, not specified as acute or chronic
CPT/HCPCS: 12345; 36415; 70450; 71045; 80053; 85025; 93005; 94640; 96361; 96374; 99283; 99284; J1100; J7040; J8597

== ENCOUNTER 2020-04-06 09:57 | Outpatient (CLI) | payer MEDICARE, SELFPAY ==
--- NOTE | 2020-04-06 10:50 | CT_ITS ---
WS: [id number] CT CHEST WITH INTRAVENOUS CONTRAST HISTORY: LUNG CANCER TECHNIQUE: Contiguous 5 mm axial imaging performed on the thorax. Coronal and sagittal reformats are submitted. All CT scans at [facility] use at least one of these dose optimization techniq ues: automated exposure control; mA and/or kV adjustment per patient size (includes targeted exams wh ere dose is matched to clinical indication); or iterative reconstruction. CONTRAST: Omnipaque 300; 95 mL IV. DLP: 1039.19 mGy.cm COMPARISON: 09/24/2019, 06/24/2019, 09/08/2018 Lungs and central airway: Continued decrease in size of the spiculated nodule in the medial RIGHT upp er lobe now measuring 1.8 x 1.3 cm. Postobstructive atelectasis has minimally improved. 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 Pleural t hickening in the posterior RIGHT upper lobe is probably in part related due to the radiation therapy port. No new or worsening areas of pneumonia, atelectasis or mass. Pleura: No pleural effusions. Mild pleural thickening in the posterior RIGHT thorax. Heart and pericardium: Moderate enlargement of the heart. Circumferential pericardial effusion. Maxim um diameter of 1.5 cm posteriorly. Moderate increase in size of the effusion. RIGHT heart is not jamilah apsed. Mediastinum and pito: RIGHT paratracheal and parahilar soft tissue is unchanged. No worsening adenopa thy. Vessels: Moderate enlargement of the thoracic aorta with calcification. Pulmonary artery size is slig htly enlarged. RIGHT subclavian vein is not opacifying. This is probably due to phase of injection. 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 Upper abdomen: Hepatic and splenic granulomata. Moderate size hiatal hernia. 11 mm nodule LEFT adrena l gland is unchanged. Mild perinephric stranding around the superior aspect of each kidney. Mild anas arca. Osseous structures: Increase in thoracic kyphosis. No osteoblastic or osteolytic bone disease. CT/CT chest w con* [id number] IMPRESSION: 1. Continued slow decrease in size of the medial RIGHT upper lobe neoplasm now measuring 1.8 x 1.3 cm. Mild improvement in the postobstructive atelectasis RI GHT upper lobe and stable post radiation induced changes. 2. No change in the paratracheal and RIGHT hilar lymphoid and soft tissue thic kening. 3. Diffuse esophageal wall thickening is unchanged. 4. Mild increase in size of the pericardial effusion now measuring 1.5 cm maxi mum diameter. 5. Cardiomegaly. 6. Stable LEFT adrenal nodule which is probably an adenoma. 7. Soft tissue anasarca.
[2020-04-06 11:36] LABS: Blood Urea Nitrogen 16 mg/dL (8-23)
[2020-04-06] MEDS: iohexol 300 mg/mL 100 mL Btl IV (12:10)
== END 2020-04-06 09:58 | disposition home or self-care (01) ==
LOC: RAD 10:04
PROVIDERS: PCP Family Medicine; Visit Provider Internal Medicine Medical Oncology
DX: C34.11 Malignant neoplasm of upper lobe, right bronchus or lung (principal); J98.11 Atelectasis; I31.3 Pericardial effusion (noninflammatory); I51.7 Cardiomegaly; R60.1 Generalized edema
CPT/HCPCS: 36415; 71260; 82565; 84520

== ENCOUNTER 2020-04-10 07:26 | Outpatient (CLI) | payer MEDICARE, SELFPAY ==
[2020-04-10 08:23] LABS: Basophils % 0.5 %; Eosinophils # 0.2 10^3/uL (0.0-0.8); Hematocrit 40.3 % (42.0-52.0); Hemoglobin 12.6 g/dL (11.7-16.6); Lymphocytes % 23.9 %; Mean Corpuscular HGB Conc 31.3 g/dL (30.0-36.0); Mean Corpuscular Hemoglobin 33.1 pg (28.0-34.0); Mean Corpuscular Volume 105.8 fL (80-94); Mean Platelet Volume 10.8 fL (7.4-10.4); Monocytes # 0.2 10^3/uL (0.2-0.9); Neutrophils % 66.4 %; Nucleated Red Blood Cells % 0 %; Platelet Count 101 10^3/cmm (130-400); Red Blood Count 3.81 10^6/uL (4.1-5.3); Red Cell Distribution Width 14.6 % (12.1-15.1); White Blood Count 4.2 10^3/uL (4.0-10.0)
[2020-04-10 10:19] LABS: Alanine Aminotransferase 14 U/L (0-41); Albumin Level 4.2 g/dL (3.5-5.2); Alkaline Phosphatase 95 IU/L (40-130); Aspartate Amino Transferase 20 U/L (0-40); Blood Urea Nitrogen 19 mg/dL (8-23); Calcium 10.5 mg/dL (8.5-10.5); Carbon Dioxide 24 mmol/L (22-29); Chloride 104 mmol/L (98-107); Globulin 3.2 g/dL (1.3-4.6); Glucose 90 mg/dL (65-115); Osmolality Calculated 292 mOsm/kg (285-295); Sodium 140 mmol/L (136-145); Total Bilirubin 0.8 mg/dL (0.15-1.2); Total Protein 7.4 g/dL (6.6-8.7)
--- NOTE | 2020-04-11 06:42 | ONC FU_ITS ---
Dr. Santacruz Patient Follow-Up Note Patient: Turner Llanos Unit #: [id number]: 1940 Dicatated By: Jb Santacruz M.D.Date of Visit:Apr 10, 2020 Onc Med Follow-up/Prog Note Chief Complaint: Oral pharyngeal carcinoma/lung cancer. 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 By clinical evaluation the lung cancer was stage IB (T2a, N0, M0). He had initially presented to Dr. Nichols with hemoptysis, which had started back in February 2016. He was referred to Dr. Trevizo. Had evaluation with chest CT on 04/25/2016. It showed a right apical subpleural nodule subjacent to the right innominate artery. It measured 2 x 2 centimeters. There is no associated hilar or mediastinal adenopathy and there is no evidence of other metastatic disease. He had further evaluation with PET/CT on 05/04/2016. It showed an FDG avid 2 cm nodule in the right lung apex, SUV 5.9. Also noted was a hypermetabolic focus in the left base of tongue, SUV 15.6. There was no associated cervical, clavicular, mediastinal, or hilar adenopathy. He was referred to Dr. Keene. On 06/18/2016 he underwent microdirect laryngoscopy. He was noted to have an ulcerated lesion at the left base of tongue. Biopsy showed invasive moderately differentiated squamous cell carcinoma, P 16 positive. He was then referred to Dr. Eduardo in [place]. he had further evaluation with CT and MRI of the neck. On 08/28/2016 he underwent direct laryngoscopy, bronchoscopy, and cervical esophagoscopy. He was found to have a friable tumor involving the bilateral base of tongue with extension into the vallecula. It was inseparable from the lingual surface of the epiglottis. There was normal-appearing glottic larynx, piriform sinuses, trachea, and first order bronchi, and cervical esophagus. Biopsies from both left and right base of tongue again showed invasive moderately differentiated squamous cell carcinoma. He was then referred to Dr. Madrigal for further evaluation of the pulmonary nodule. Patient reportedly declined to have a lung biopsy due to the associated risk involved. Patient was deemed inoperable due to the local extent of the tumor and his underlying comorbidities. He was seen by Dr. García for consideration of chemoradiation for the oral pharyngeal cancer and for possible SBRT to the lung lesion. He then began radiation concurrently with high-dose cisplatin chemotherapy, cycle 1 day 1 on 10/28/2016. He tolerated his initial dose of chemotherapy without acute toxicity, but his further chemotherapy was held due to prolonged neutropenia. He was able to continue his radiation. He completed treatment on 12/13/2016 to a total dose of 7000 cGy. He did experience significant local toxicity, mainly severe sore throat and difficulty swallowing. He was treated empirically with fluconazole, which did cause a significant increase in his INR, but that subsequently resolved. He did not experience any bleeding or other complications. He had gradual resolution of his treatment related toxicity. His repeat chest CT on 01/27/2017 showed 8 mm pulmonary nodule at the right apex. It appeared stable compared to the PET/CT from October 2016, but it had decreased in size compared to the chest CT from April 2016. Restaging CT scans of the neck and chest on 07/02/2017 showed post treatment related radiation changes within the soft tissues of the neck, but with no cervical lymphadenopathy or other evidence of disease progression. The right upper lobe pulmonary nodule had increased significantly, to 1.7 x 2.1 cm. It was noted that the location would not likely be amenable to CT directed needle biopsy. Follow-up chest CT on 09/08/2018 showed further increase in the right upper lobe mass to 3.2 x 2.0 cm. It was noted to abut the mediastinal structures. Subcentimeter mediastinal and hilar lymph nodes were noted to be very similar in appearance to the prior study from June 2017. A restaging PET/CT on 09/26/2018 showed FDG avid right upper lobe mass measuring 3.5 x 3.1 cm, SUV 13.2, consistent with malignancy. There was no suspicious mediastinal adenopathy and there was no evidence of for recurrence of disease at the base of the tongue. He was again referred to Dr. Per Ledezma, and on 11/27/2018 he underwent bronchoscopy with transbronchial biopsy from the right upper lobe apical segment and EBUS with FNA biopsies of station 7 and station 4R lymph nodes. The trans-bronchial right upper lobe biopsy showed invasive moderately differentiated squamous cell carcinoma. The FNA lymph node biopsies were nondiagnostic. He began radiation concurrently with weekly carboplatin/Taxol chemotherapy on 12/21/2018. As of week 3 his chemotherapy was put on hold due to a drop in the neutrophil count to 1200. He was able to continue the radiation. He completed treatment on 02/08/2019. Due to his having stopped chemotherapy the total dosage was increased to 7000 cGy. During the radiation he did require antibiotic therapy for pneumonia. A follow-up chest CT on 03/23/2019 showed decrease in the size of the right upper lobe neoplasm measuring 2.3 x 3.7 x 2.9 cm. Also noted was improved postobstructive pneumonia in the right upper lobe laterally, but with persistent infiltrate and air bronchograms. There was patchy groundglass infiltrate in the right lower lobe which appeared to have progressed from the previous study. A left adrenal gland nodule appeared stable. He was recommended to continue observation/expectant management. Restaging PET/CT on 06/24/2019 showed interval improvement in the right upper lobe neoplasm measuring 1.6 x 2.6 cm. There did appear to be increased subsegmental atelectasis and consolidation in the right upper lobe medially and in the superior segment of the right lower lobe medially. There was resolution of previously described hazy groundglass infiltrates in the right lower lobe. The left adrenal lesion appeared stable, consistent with adenoma. There was no evidence of disease progression. He continued on observation/expectant management for the head/neck and the lung cancers. In April 2019 he had another episode of visual loss in the left eye. His head MRI showed foci of remote lacunar infarcts, but there were no acute findings and there was no evidence of metastatic disease. Carotid Doppler study showed no evidence of significant carotid artery stenosis. His other medical illnesses include hypertension, hyperlipidemia, and hypothyroidism. 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 He has chronic atrial fibrillation and chronic lower extremity edema. He also has a history of chronic thrombocytopenia. He is a nonsmoker. He does not drink alcohol. INTERIM HISTORY: His chest CT on 09/24/2019 showed interval improvement in the right upper lobe neoplasm with the dominant mass measuring 1.5 x 2.0 CM. There was stable parenchymal fibrosis with surrounding consolidation and air bronchograms in the right upper lobe medially and in the superior segment of the adjacent right lower lobe. Right hilar thickening/lymphadenopathy also appeared unchanged. With those findings he continued on observation/expectant management. Surveillance chest CT on 04/06/2020 showed continued decrease in the right upper lobe spiculated nodule measuring 1.8 x 1.3 cm. There was minimal improvement in postobstructive atelectasis. There were additional radiation changes in the right upper and right lower lobes. There was moderate enlargement of the heart with circumferential pericardial effusion, which had moderately increased in size. Right paratracheal and perihilar soft tissue appeared unchanged. There was no worsening adenopathy and no evidence of other metastatic disease. He is seen a follow-up visit. He has been feeling pretty good generally. His main complaint is that he cannot stand very long without his legs getting weak. He does have to ambulate with a cane. He is able to do light work at home. His ECOG score is 1. He has good appetite. He has no fever or night sweats. He sometimes has wheezing, but he does not complain of shortness of breath or cough, and he has not been having chest pain. He has no GI complaints. He has frequent urination when he takes furosemide, he does have some chronic swelling in his legs. He has pain in his left knee. He does not complain of headache or dizziness. He has no focal neurologic symptoms. Medications: Allopurinol 1 Tablet (of 100 mg) Oral daily, Atorvastatin Calcium 0.5 Tablet (of 20 mg) Oral daily, DiltiaZEM CD 1 Capsule (of 240 mg) Capsule SR 24 HR Oral daily, Furosemide 1 (40 mg) Tablet Oral daily, Klor-Con M10 1 Tablet (of 20 meq) Tablet, controlled release Oral daily, Levothyroxine Sodium 1 Tablet (of 125 mcg) Oral daily, Lisinopril 1 Tablet (of 2.5 mg) Oral daily, Metoprolol Tartrate 1 Tablet (of 50 mg) Oral daily, MiraLax Pack Oral daily PRN, Nitroglycerin Tablet, sublingual Sublingual PRN, Tamsulosin HCl 2 (0.4 mg) Capsule Oral daily, Warfarin Sodium (5 mg) Tablet Oral Take as Directed Allergies: No Known Allergies. Review of Systems: Constitutional - He has been feeling pretty good. He has limited activity because his legs are weak. Appetite is good. He has no fever or night sweats. ECOG score is 1, ENMT - No sinus congestion/drainage. No mouth sores. No sore throat or difficulty swallowing, Hematologic/Lymphatic - He has easy bruising, Respiratory - He sometimes has wheezing but he does not complain of shortness of breath and he does not have cough. No pleuritic pain or hemoptysis, Cardiovascular - No angina pain. No palpitations, Gastrointestinal - No nausea or vomiting. No heartburn or acid reflux. No diarrhea or constipation. No blood in the stool or black stools, Genitourinary (M) - No dysuria or hematuria. He has urinary frequency. No urgency or incontinence, Musculoskeletal - He has pain in his left knee. He cannot stand very long without his legs getting weak. He uses a cane to ambulate, Integumentary - No skin rash, Neurologic - No headache or dizziness. No numbness or tingling. No other focal neurologic symptoms, Psychiatric - No anxiety or depression. No insomnia. Vital Signs: Performed on Apr 10, 2020 08:52 Height - 71.00 in Weight - 243.8 lbs (LOW) BSA - 2.29 sq.m BMI - 34.00 (HIGH) Temperature - 97.6 F (LOW) Pulse - 72 /min Respiration - 22 /min BP - 116/71 mm(hg) O2 Sat - 96 % Pain - 0 Physical Examination: Constitutional - He appears somewhat weak generally, Eyes - Sclerae nonicteric. Conjunctivae clear, ENMT - No lesions noted in the oral cavity, Hematologic/Lymphatic - No cervical, clavicular, or axillary adenopathy noted, Respiratory - Lungs show some decrease in air movement bilaterally. His breath sounds are slightly coarse. There is no wheezing noted, Cardiovascular - Heart rhythm is irregular. There is a II/ systolic murmur. There is no gallop or rub noted, Abdomen - Soft. Liver and spleen are not enlarged. There is no abdominal mass or ascites noted and there is no inguinal adenopathy, Extremities - There are venous stasis changes bilaterally. There is mild edema. There are purpuric lesions on both arms, Neurologic - No focal neurologic deficits noted. Lab/Imaging: Test performed on Apr 10, 2020 07:48 Sodium 140 mmol/L Potassium 4.0 mmol/L Chloride 104 mmol/L CO2 24 mmol/L Anion Gap 16.0 BUN 19 mg/dL Creatinine 1.3 mg/dL Cr Clearance (Est) 69.7600 mL/min Glucose 90 mg/dL Osmolality - Calculated 292 mOsm/kg Calcium 10.5 mg/dL Protein, Total 7.4 g/dL Albumin 4.2 g/dL Globulin 3.2 g/dL Bilirubin, Total 0.8 mg/dL ALT (SGPT) 14 U/L AST (SGOT) 20 U/L Alkaline Phosphatase 95 IU/L WBC 4.2 10 3/uL RBC 3.81 10 6/uL HGB 12.6 g/dL HCT 40.3 % MCV 105.8 fL MCH 33.1 pg MCHC 31.3 g/dL RDW 14.6 % Platelet Count 101 10 3/cmm MPV 10.8 fL Neutrophils 2.80 10 3/uL Lymphocytes 1.0 10 3/uL Monocytes 0.2 10 3/uL Eosinophils 0.2 10 3/uL Basophils 0.0 10 3/uL Neutrophil % 66.4 % Lymphocyte % 23.9 % Monocyte % 5.0 % Eosinophil % 4.0 % Basophils % 0.5 % NRBC % 0 % Impression: 1. Patient with enlarging, FDG avid solitary pulmonary nodule in the upper lobes the right lung, confirmed to be moderately differentiated squamous cell carcinoma. By clinical evaluation his disease was stage IB (T2a, N0, M0). It appeared to be inoperable due to its location adjacent to mediastinal structures. 2. 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 He underwent radiation concurrently with high-dose cisplatin chemotherapy. He completed his radiation on 12/13/2016 to a total dose of 7000 cGy. He received day 1 cisplatin only, as further chemotherapy was held due to persistent neutropenia. He appeared to have a complete response by follow-up PET/CT studies. His other medical illnesses include: 3. Hypertension. 4. Hyperlipidemia. 5. Hypothyroidism. 6. Chronic atrial fibrillation, on anticoagulation with warfarin. 7. He underwent aortic valve repair and repair of thoracic aortic aneurysm in May 2013. 8. He has chronic lower extremity edema. 9. He has a history of chronic thrombocytopenia. He began radiation concurrently with weekly carboplatin/Taxol chemotherapy on 12/21/2018. His chemotherapy was put on hold at week 3 due to neutropenia. He continued radiation. He completed treatment on 02/08/2019. Due to his having stopped chemotherapy, the total dosage was increased to 7000 cGy. During the radiation he had required antibiotic therapy for pneumonia. A repeat chest CT on 04/02/2019 did show some decrease in the size of the right upper lobe neoplasm, and there was improved postobstructive pneumonia, though with persistent infiltrate and air bronchograms. He was then followed on observation/expectant management. During followup he has had limited activity tolerance due to weakness in his legs. His surveillance CT scans have shown further decrease in the right upper lobe pulmonary nodule and no adenopathy or other evidence of metastatic disease. The CT, though, does show increasing pericardial effusion. Overall, he is still doing pretty well clinically with no evidence of recurrence/progression of the head/neck or the lung cancers. Plan: He will be scheduled for echocardiogram for assessment of the pericardial effusion. He left further evaluation as indicated. He otherwise remains on observation/expectant management. I will see him again in 6 months, or sooner as needed. Signed By: Jb Santacruz M.D. <<Signature on File>>
== END 2020-04-10 07:27 | disposition home or self-care (01) ==
LOC: ONCMED 07:28
PROVIDERS: PCP Family Medicine; Visit Provider Internal Medicine Medical Oncology
DX: C01 Malignant neoplasm of base of tongue (principal); C34.11 Malignant neoplasm of upper lobe, right bronchus or lung; D70.1 Agranulocytosis secondary to cancer chemotherapy; T45.1X5A Adverse effect of antineoplastic and immunosuppressive drugs, initial encounter; I10 Essential (primary) hypertension; E78.5 Hyperlipidemia, unspecified; E03.9 Hypothyroidism, unspecified; I48.11 Longstanding persistent atrial fibrillation; R60.1 Generalized edema; D69.6 Thrombocytopenia, unspecified; Z92.21 Personal history of antineoplastic chemotherapy; Z92.3 Personal history of irradiation; Z79.01 Long term (current) use of anticoagulants
CPT/HCPCS: 36415; 80053; 85025; 99214

== ENCOUNTER 2020-04-25 11:40 | Outpatient (CLI) | payer MEDICARE, SELFPAY ==
--- NOTE | 2020-04-25 12:04 | USCV_ITS ---
[facility] Age: 80 Gender: M : 1940 Exam Date: 04/25/2020 12:19 Ordering Phys: Jb Santacruz MD Technologist: Jad Raines [place] [facility] [place]: HX THORACTIC AO REPAIR MURMUR BP: 116 / 70 HR: 75 Rhythm: Sinus Technical Quality: Good MEASUREMENTS (Male / Female) Normal Values 2D ECHO LV Diastolic Diameter PLAX 4.4 cm 4.2 - 5.9 / 3.9 - 5.3 cm LV Systolic Diameter PLAX 2.8 cm IVS Diastolic Thickness 1.1 cm 0.6 - 1.0 / 0.6 - 0.9 cm IVS Systolic Thickness 1.4 cm LVPW Diastolic Thickness 1.0 cm 0.6 - 1.0 / 0.6 - 0.9 cm LVPW Systolic Thickness 1.6 cm LVOT Diameter 2.0 cm LV Ejection Fraction 2D Teich 64.7 % LV Ejection Fraction MOD 2C 69.9 % LV Ejection Fraction 2C AL 69.2 % LA Diameter 5.7 cm LA Width 4.9 cm LA Height 6.4 cm RA Width 4.9 cm RA Height 7.4 cm Aorta at Sinotubular Diameter 1.4 cm M-MODE LV Diastolic Diameter MM 4.9 cm 4.2 - 5.9 / 3.9 - 5.3 cm LV Systolic Diameter MM 3.1 cm LV Ejection Fraction MM Teich 68.0 % IVS Diastolic Thickness MM 1.3 cm 0.6 - 1.0 / 0.6 - 0.9 cm IVS Systolic Thickness MM 1.8 cm LVPW Diastolic Thickness MM 1.5 cm 0.6 - 1.0 / 0.6 - 0.9 cm LVPW Systolic Thickness MM 2.1 cm RV Diastolic Diameter MM 2.0 cm Aortic Annulus Diameter 3.5 cm LA Ao Ratio MM 1.6 MV E Point Septal Separation 0.4 cm DOPPLER AV Peak Velocity 119.7 cm/s LVOT Peak Velocity 79.0 cm/s AV Area Cont Eq vti 2.4 cm squared AV Area Cont Eq pk 2.1 cm squared MV Area PHT 5.0 cm squared Mitral E to A Ratio 3.8 MV E' Velocity 67.5 cm/s Mitral E to MV E' Ratio 9.7 Mitral E to LV E' Lateral Ratio 9.5 Mitral E to LV E' Septal Ratio 9.9 TR Peak Velocity 189.0 cm/s TR Peak Gradient 14.3 mmHg TV Peak E Velocity 85.0 cm/s Right Atrial Pressure 3.0 mmHg Pulmonary Artery Systolic Pressu 17.3 mmHg PV Peak Velocity 99.0 cm/s FINDINGS Left Ventricle Normal left ventricular size and systolic function, EF 69 %. No regional wall motion abnormalities. Right Ventricle Normal right ventricular size and systolic function. Right Atrium . Moderately increased right atrial size. Left Atrium Moderately increased left atrial size. Mitral Valve Thickened mitral valve. Mild to moderate mitral valve regurgitation. Aortic Valve Thickened aortic valve. Tricuspid Valve Trace to mild tricuspid valve regurgitation. Pulmonic Valve Pulmonic valve not well visualized. Pericardium Trivial pericardial effusion. Aorta Mildly dilated ascending aorta. 4.2 cm CONCLUSIONS Normal left ventricular size and systolic function, EF 69 %. No regional wall motion abnormalities. Moderately increased right atrial size. Thickened mitral valve. Mild to moderate mitral valve regurgitation. Thickened aortic valve. Trace to mild tricuspid valve regurgitation. Pulmonic valve not well visualized. Trivial pericardial effusion. Mildly dilated ascending aorta, maximum diameter 4.[address] Chriss Segal MD FACC (Electronically Signed) Final Date: 25 April 2020 20:29 S
== END 2020-04-25 11:41 | disposition home or self-care (01) ==
LOC: RAD 11:45
PROVIDERS: PCP Family Medicine; Visit Provider Internal Medicine Medical Oncology
DX: C34.11 Malignant neoplasm of upper lobe, right bronchus or lung (principal); I31.3 Pericardial effusion (noninflammatory); I08.3 Combined rheumatic disorders of mitral, aortic and tricuspid valves
CPT/HCPCS: 93306

== ENCOUNTER 2020-09-16 05:44 | Inpatient (IN) | payer MEDICARE, SELFPAY ==
[2020-09-16] VITALS (42 sets, daily range): BP systolic 69–131; BP diastolic 49–95; PULSE 54–100; RESP 13–28; TEMP 34.7–37.1; O2SAT 84–100; BMI 36.2
--- NOTE | 2020-09-16 05:52 | ECG_ITS ---
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 Measurements Intervals Boutte Rate: 52 P: WA: QRS: 81 QRSD: 94 T: 92 QT: 443 QTc: 415 Interpretive Statements ATRIAL FIBRILLATION WITH SLOW VENTRICULAR RESPONSE LOW QRS VOLTAGE [QRS DEFLECTION < 0.5/1.0 mV IN LIMB/CHEST LEADS] POSSIBLE ANTERIOR MYOCARDIAL INFARCTION , PROBABLY OLD [30 ms Q WAVE IN V3/V4, OR R < 0.2 mV IN V4] Compared to ECG 10/24/2019 13:16:32 Myocardial infarct finding now present Electronically Signed On 09-18-2020 18:57:07 SHEAR GRINDER OPERATOR by Karel Blum M.D. [id number]
--- NOTE | 2020-09-16 05:52 | XRR_ITS ---
PROCEDURE INFORMATION: Exam: XR Chest Exam date and time: 09/16/2020 5:59 AM Age: 80 years old Clinical indication: Shortness of breath and other: Hypoxia; Prior surgery; Surgery date: 6+ months; Surgery type: Open heart; Patient HX: HX of lung cancer. Shortness of breath, not feeling well, hypoxia; Additional info: SOB TECHNIQUE: Imaging protocol: XR of the chest Views: 1 view. COMPARISON: CT chest w con* [id number] 04/06/2020 12:02 PM FINDINGS: Lungs: There is chronic fibrosis in the medial right upper lobe. No acute pulmonary infiltrates are seen. Pleural spaces: Unremarkable. No pleural effusion. No pneumothorax. Heart/Mediastinum: The patient has undergone coronary bypass surgery. The cardiac silhouette is enlarged but unchanged. Bones/joints: Unremarkable. XR/XR chest 1V portable [id number] IMPRESSION: 1. Cardiomegaly. 2. Right upper lobe fibrosis consistent with radiation therapy. 3. No acute abnormality.
[2020-09-16 06:08] LABS: Basophils % 0.4 %; Eosinophils # 0.1 10^3/uL (0.0-0.8); Hematocrit 34.7 % (42.0-52.0); Hemoglobin 11.2 g/dL (11.7-16.6); Lymphocytes # 1.2 10^3/uL (0.8-4.8); Lymphocytes % 24.4 %; Mean Corpuscular HGB Conc 32.3 g/dL (30.0-36.0); Mean Corpuscular Hemoglobin 33.1 pg (28.0-34.0); Mean Corpuscular Volume 102.7 fL (80-94); Mean Platelet Volume 11.5 fL (7.4-10.4); Monocytes # 0.2 10^3/uL (0.2-0.9); Monocytes % 4.2 %; Neutrophils # 3.41 10^3/uL (1.8-7.7); Neutrophils % 68.8 %; Nucleated Red Blood Cells % 0 %; Platelet Count 84 10^3/cmm (130-400); Red Blood Count 3.38 10^6/uL (4.1-5.3); Red Cell Distribution Width 15.7 % (12.1-15.1)
[2020-09-16 06:09] LABS: ABG PCO2 39.1 mmHg (35-45); ABG PH Result 7.39 (7.35-7.45); Arterial Blood Gas Hematocrit 33.2 % (42-52); Base Excess ABG -1.2 mmol/L (-2.0-2.0); Blood Gas Allen Test Pos; Blood Gas Operator Identificat HARKR; Blood Gas Sample Site Radial, right; Blood Gas Sample Type Arterial; HCO3 ABG 23.6 mmol/L (22-26); Oxygen Device NC; PO2 ABG 85.6 mmHg (80.0-100.0)
[2020-09-16] MEDS: DOPamine drip 400 MG/250 ML PREMIX 22.1 MG IV (06:24)
[2020-09-16 06:29] LABS: Lactate (Lactic Acid level) 1.6 mmol/L (0.5-2.2)
[2020-09-16 06:31] LABS: Troponin(5th) Baseline 32 ng/L (0-15)
[2020-09-16 06:38] LABS: Alanine Aminotransferase 14 U/L (0-41); Albumin Level 3.9 g/dL (3.5-5.2); Alkaline Phosphatase 92 IU/L (40-130); Aspartate Amino Transferase 21 U/L (0-40); Blood Urea Nitrogen 23 mg/dL (8-23); Calcium 9.4 mg/dL (8.5-10.5); Carbon Dioxide 21 mmol/L (22-29); Chloride 100 mmol/L (98-107); Globulin 2.9 g/dL (1.3-4.6); Glucose 159 mg/dL (65-115); NT Pro B Type Natriuretic Pept 1672 pg/mL (0-450); Osmolality Calculated 287 mOsm/kg (285-295); Sodium 135 mmol/L (136-145); Total Protein 6.8 g/dL (6.6-8.7)
--- NOTE | 2020-09-16 06:59 | W.ED.GENADLT ---
HPI - General Adult General: Chief complaint: General Medical Stated complaint: not feeling well Time Seen by Provider: 09/16/20 05:45 History of Present Illness: HPI narrative: 80-year-old male presents to the emergency room via EMS from his home. Patient presents complaining of shortness of breath and generally not feeling well. On arrival EMS had an O2 sat of 84%. In route from home patient became bradycardic had 2 half milligram doses of atropine and 500 cc normal saline bolus for the bradycardia and hypotension. He states he is feeling better he is not as short of breath as he was. He denies chest pain no recent fever sweats or chills. Patient has a history of congestive heart failure and atrial fibrillation. Onset (ago): unknown Severity: severe Relieving factors: rest and other (Oxygen, sitting upright) Exacerbating factors: movement (Exertion, lying flat) Associated symptoms: Reports cough, decreased appetite, dyspnea, malaise, nausea and palpitations; Deny chest pain, confusion, diaphoresis, fevers/chills, headache(s), rash, seizures, short of breath, syncope, vomiting or weakness Treatments prior to arrival: other (Atropine x2 500 mL normal saline and oxygen) Review of Systems Const: Reports: malaise; Denies: diaphoresis ENMT: Denies: throat pain, ear or mastoid pain, nasal discharge or nasal congestion Card: Reports: palpitations; Denies: chest pain or syncope Resp: Reports: dyspnea GI: Reports: nausea; Denies: vomiting : Denies: flank pain, dysuria, urinary frequency or urinary urgency Skin/Breast: Denies: rash Neuro: Denies: headache(s) or confusion [facility] ED PFSH: Medical History (Updated 09/16/20 @ 07:48 by Lalito Cr DO) Aortic aneurysm Aortic regurgitation Atrial fibrillation Cardiomyopathy Gout History of ITP Hyperlipidemia Hypertension Hypothyroid Ischemic heart disease Lung mass Pericardial effusion Surgical History H/O hernia repair History of back surgery Hx of CABG Family History Other CAD (coronary artery disease) Social History Smoking and tobacco status: never smoked Alcohol intake: never Physical Exam Const: COMMON NORMALS: no acute distress GENERAL APPEARANCE: cooperative and comfortable ORIENTATION/CONSCIOUSNESS: Yes awake and Yes oriented to person HENMT: COMMON NORMALS: normocephalic, atraumatic and hearing grossly normal bilaterally HEAD & SCALP: normocephalic and atraumatic Resp: AUSCULTATION: rales Cardio: RATE: bradycardic RHYTHM: abnormal rhythm irregularly irregular GI: COMMON NORMALS: Soft to palpation and No hepatosplenomegaly present AUSCULTATION: Yes normoactive bowel sounds PALPATION: Yes Soft to palpation, No Tenderness to palpation present (GI), No Guarding due to palpation present (GI) and Yes No hepatosplenomegaly present Extremity: COMMON NORMALS: normal to inspection, capillary refill normal, no calf tenderness and no pedal edema Neuro: SENSORIUM/ORIENTATION: Yes oriented to person Skin: COMMON NORMALS: no rashes or lesions noted GENERAL SKIN EXAM: no rashes or lesions noted Course Vital Signs: Vital signs: Vital Signs Temperature 98.7 F 09/16/20 08:48 Pulse Rate 81 09/16/20 08:48 Respiratory Rate 18 09/16/20 08:48 Blood Pressure 85/59 09/16/20 08:48 Pulse Oximetry 98 09/16/20 08:48 MDM - General Adult MDM Narrative: Medical decision making narrative: Patient on Cardizem and metoprolol is significantly bradycardic. He also appears to be in mild failure. With oxygen supplementation and titration of dopamine patient's blood pressure is improved and his heart rate is in the 80s. Will admit to the ICU to maintain blood pressure and continue medication support for rate. Lab Data: Labs: Lab Results 09/16/20 09/16/20 09/16/20 Range/Units 05:58 06:00 06:00 WBC 5.0 (4.0-10.0) 10^3/ uL RBC 3.38 L (4.1-5.3) 10^6/u L Hgb 11.2 L (11.7-16.6) g/dL Hct 34.7 L (42.0-52.0) % MCV 102.7 H (80-94) fL MCH 33.1 (28.0-34.0) pg MCHC 32.3 (30.0-36.0) g/dL RDW 15.7 H (12.1-15.1) % Plt Count 84 L (130-400) 10^3/c mm MPV 11.5 H (7.4-10.4) fL Neut % (Auto) 68.8 % Lymph % (Auto) 24.4 % Murray % (Auto) 4.2 % Eos % (Auto) 2.0 % Baso % (Auto) 0.4 % Neut # (Auto) 3.41 (1.8-7.7) 10^3/u L Lymph # (Auto) 1.2 (0.8-4.8) 10^3/u L Murray # (Auto) 0.2 (0.2-0.9) 10^3/u L Eos # (Auto) 0.1 (0.0-0.8) 10^3/u L Baso # (Auto) 0.0 (0.0-0.1) 10^3/u L Nucleated RBC % (a uto) 0 % Nucleated RBCs # 0.0 /100WBC PT Cancelled INR Cancelled D-Dimer Cancelled Specimen Type Arterial Sample Site Radial, right ABG pH 7.39 (7.35-7.45) ABG pCO2 39.1 (35-45) mmHg ABG pO2 85.6 (80.0-100.0) mmH g ABG HCO3 23.6 (22-26) mmol/L ABG Base Excess -1.2 (-2.0-2.0) mmol/ L Sohail Test Pos Hematocrit 33.2 L (42-52) % O2 Delivery Device Nc O2 Liters/Min 4.0 % Hand Singer ID Harkr Sodium (136-145) mmol/L Potassium (3.5-5.1) mmol/L Chloride (98-107) mmol/L Carbon Dioxide (22-29) mmol/L Anion Gap (5-19) BUN (8-23) mg/dL Creatinine (0.7-1.2) mg/dL GFR Calculation Glucose (65-115) mg/dL Calculated Osmolal ity (285-295) mOsm/k g Lactate (0.5-2.2) mmol/L Calcium (8.5-10.5) mg/dL Total Bilirubin (0.15-1.2) mg/dL AST (0-40) U/L ALT (0-41) U/L Alkaline Phosphata se (40-130) IU/L Troponin T Baselin e (0-15) ng/L NT-Pro-B Natriuret Pep (0-450) pg/mL Total Protein (6.6-8.7) g/dL Albumin (3.5-5.2) g/dL Globulin (1.3-4.6) g/dL 09/16/20 09/16/20 09/16/20 Range/Units 06:00 06:00 06:00 WBC (4.0-10.0) 10^3/ uL RBC (4.1-5.3) 10^6/u L Hgb (11.7-16.6) g/dL Hct (42.0-52.0) % MCV (80-94) fL MCH (28.0-34.0) pg MCHC (30.0-36.0) g/dL RDW (12.1-15.1) % Plt Count (130-400) 10^3/c mm MPV (7.4-10.4) fL Neut % (Auto) % Lymph % (Auto) % Murray % (Auto) % Eos % (Auto) % Baso % (Auto) % Neut # (Auto) (1.8-7.7) 10^3/u L Lymph # (Auto) (0.8-4.8) 10^3/u L Murray # (Auto) (0.2-0.9) 10^3/u L Eos # (Auto) (0.0-0.8) 10^3/u L Baso # (Auto) (0.0-0.1) 10^3/u L Nucleated RBC % (a uto) % Nucleated RBCs # /100WBC PT INR D-Dimer Specimen Type Sample Site ABG pH (7.35-7.45) ABG pCO2 (35-45) mmHg ABG pO2 (80.0-100.0) mmH g ABG HCO3 (22-26) mmol/L ABG Base Excess (-2.0-2.0) mmol/ L Sohail Test Hematocrit (42-52) % O2 Delivery Device O2 Liters/Min % Hand Singer ID Sodium 135 L (136-145) mmol/L Potassium 4.0 (3.5-5.1) mmol/L Chloride 100 (98-107) mmol/L Carbon Dioxide 21 L (22-29) mmol/L Anion Gap 18.0 (5-19) BUN 23 (8-23) mg/dL Creatinine 1.3 H (0.7-1.2) mg/dL GFR Calculation Not Reportable Glucose 159 H (65-115) mg/dL Calculated Osmolal ity 287 (285-295) mOsm/k g Lactate 1.6 (0.5-2.2) mmol/L Calcium 9.4 (8.5-10.5) mg/dL Total Bilirubin 1.0 (0.15-1.2) mg/dL AST 21 (0-40) U/L ALT 14 (0-41) U/L Alkaline Phosphata se 92 (40-130) IU/L Troponin T Baselin e 32 H (0-15) ng/L NT-Pro-B Natriuret Pep 1672 H (0-450) pg/mL Total Protein 6.8 (6.6-8.7) g/dL Albumin 3.9 (3.5-5.2) g/dL Globulin 2.9 (1.3-4.6) g/dL 09/16/20 Range/Units 06:25 WBC (4.0-10.0) 10^3/ uL RBC (4.1-5.3) 10^6/u L Hgb (11.7-16.6) g/dL Hct (42.0-52.0) % MCV (80-94) fL MCH (28.0-34.0) pg MCHC (30.0-36.0) g/dL RDW (12.1-15.1) % Plt Count (130-400) 10^3/c mm MPV (7.4-10.4) fL Neut % (Auto) % Lymph % (Auto) % Murray % (Auto) % Eos % (Auto) % Baso % (Auto) % Neut # (Auto) (1.8-7.7) 10^3/u L Lymph # (Auto) (0.8-4.8) 10^3/u L Murray # (Auto) (0.2-0.9) 10^3/u L Eos # (Auto) (0.0-0.8) 10^3/u L Baso # (Auto) (0.0-0.1) 10^3/u L Nucleated RBC % (a uto) % Nucleated RBCs # /100WBC PT 31.40 H INR 2.90 H D-Dimer 0.76 H Specimen Type Sample Site ABG pH (7.35-7.45) ABG pCO2 (35-45) mmHg ABG pO2 (80.0-100.0) mmH g ABG HCO3 (22-26) mmol/L ABG Base Excess (-2.0-2.0) mmol/ L Sohail Test Hematocrit (42-52) % O2 Delivery Device O2 Liters/Min % Hand Singer ID Sodium (136-145) mmol/L Potassium (3.5-5.1) mmol/L Chloride (98-107) mmol/L Carbon Dioxide (22-29) mmol/L Anion Gap (5-19) BUN (8-23) mg/dL Creatinine (0.7-1.2) mg/dL GFR Calculation Glucose (65-115) mg/dL Calculated Osmolal ity (285-295) mOsm/k g Lactate (0.5-2.2) mmol/L Calcium (8.5-10.5) mg/dL Total Bilirubin (0.15-1.2) mg/dL AST (0-40) U/L ALT (0-41) U/L Alkaline Phosphata se (40-130) IU/L Troponin T Baselin e (0-15) ng/L NT-Pro-B Natriuret Pep (0-450) pg/mL Total Protein (6.6-8.7) g/dL Albumin (3.5-5.2) g/dL Globulin (1.3-4.6) g/dL Discharge Plan Discharge Patient Disposition: Admitted As Inpatient Admit Provider: Lindsey Hicks Clinical Impression: Atrial fibrillation, Hypotension, Atrial fibrillation, persistent, CHF (congestive heart failure), Lung cancer, Laryngeal cancer, Thoracic aortic aneurysm (TAA) Condition: Stable Coding Level of Care Code ED Grain Elevator Agent for g Fwd Exam Detailed
[2020-09-16 07:03] LABS: D Dimer 0.76 ug/mIFEU (0-0.59)
--- NOTE | 2020-09-16 07:52 | ECG_ITS ---
[facility] Test Date: 2020-09-16 Pat Name: Turner Llanos Department: Room: Gender: Male Section Hand Helper: : 1940 Requested By: Everardo King Order Number: [id number] Severino MD: Karel Blum M.D. Measurements Intervals [place] Rate: 86 P: TN: QRS: 105 QRSD: 94 T: -4 QT: 393 QTc: 471 Interpretive Statements ATRIAL FIBRILLATION RIGHT AXIS DEVIATION [QRS AXIS > 100] LOW QRS VOLTAGE [QRS DEFLECTION < 0.5/1.0 mV IN LIMB/CHEST LEADS] ANTEROSEPTAL MYOCARDIAL INFARCTION , OF INDETERMINATE AGE [40+ ms Q WAVE IN V1-V4] Compared to ECG 09/16/2020 05:51:28 Right-axis deviation now present Myocardial infarct finding still present Electronically Signed On 09-18-2020 19:04:58 SUPERVISOR TYPE BAR AND SEGMENT by Karel Blum M.D. [id number]
[2020-09-16 08:34] LABS: Troponin 5 2HR 33.75 ng/L (0-15); Troponin 5 2HR Delta 1.75 ABS# (0-10)
[2020-09-16 09:07] LABS: SARS Covid-2 Antigen Negative (Negative)
--- NOTE | 2020-09-16 10:00 | USCV_ITS ---
[facility] Age: 80 Gender: M : 1940 Exam Date: 09/16/2020 13:58 Ordering Phys: Lindsey Hicks MD Technologist: Jeannette Fajardo Exam Location: [facility] Indication: Bradycardia BP: 114 / 77 HR: 96 Rhythm: Sinus Technical Quality: Fair MEASUREMENTS (Male / Female) Normal Values 2D ECHO LV Diastolic Diameter PLAX 4.7 cm 4.2 - 5.9 / 3.9 - 5.3 cm LV Systolic Diameter PLAX 2.2 cm LV Chamber Size 4.2 cm IVS Diastolic Thickness 1.8 cm 0.6 - 1.0 / 0.6 - 0.9 cm IVS Systolic Thickness 2.1 cm LVPW Diastolic Thickness 1.3 cm 0.6 - 1.0 / 0.6 - 0.9 cm LVPW Systolic Thickness 1.8 cm RV Chamber Size 3.1 cm LVOT Diameter 2.0 cm LV Ejection Fraction 2D Teich 85.0 % LV Ejection Fraction MOD 2C 63.3 % LV Ejection Fraction 2C AL 64.3 % LA Diameter 7.1 cm LA Width 4.7 cm LA Height 7.9 cm RA Width 4.5 cm RA Height 7.6 cm Aorta at Sinotubular Diameter 3.7 cm M-MODE LV Diastolic Diameter MM 4.8 cm 4.2 - 5.9 / 3.9 - 5.3 cm LV Systolic Diameter MM 3.1 cm LV Ejection Fraction MM Teich 64.1 % IVS Diastolic Thickness MM 1.4 cm 0.6 - 1.0 / 0.6 - 0.9 cm IVS Systolic Thickness MM 2.0 cm LVPW Diastolic Thickness MM 1.8 cm 0.6 - 1.0 / 0.6 - 0.9 cm LVPW Systolic Thickness MM 1.7 cm RV Diastolic Diameter MM 1.2 cm Aortic Annulus Diameter 4.0 cm LA Ao Ratio MM 2.0 MV E Point Septal Separation 0.3 cm DOPPLER AV Peak Velocity 156.0 cm/s LVOT Peak Velocity 105.0 cm/s AV Area Cont Eq vti 2.6 cm squared AV Area Cont Eq pk 2.2 cm squared MV Area PHT 5.0 cm squared MV E' Velocity 134.0 cm/s TR Peak Velocity 246.3 cm/s TR Peak Gradient 24.3 mmHg TV Peak E Velocity 83.0 cm/s Right Atrial Pressure 15.0 mmHg Pulmonary Artery Systolic Pressu 39.3 mmHg PV Peak Velocity 81.0 cm/s RV Acceleration Time 0.1 s RV Ejection Time 0.2 s RV AcT/ET 0.3 FINDINGS Left Ventricle Normal left ventricular size,. LV systolic function is normal with EF of 60-65%. Septal motion is consistent with conduction abnornality. Diastolic function can not be assessed because of atrial fibrillation. Right Ventricle The right ventricle is normal in size and function. Right Atrium The right atrium is enlarged Left Atrium The left atrium is enlarged Mitral Valve Structurally normal mitral valve without significant stenosis or prolapse. There is mild to moderate mitral regurgitation. Aortic Valve Aortic valve is thickened. No aortic stenosis is seen. There is no aortic regurgitation. Tricuspid Valve Structurally normal tricuspid valve without significant stenosis. Mild tricuspid regurgitation. Elevated RA pressure. RVSP is 35-40mmHg. This is consistent with mild pulmonary hypertension Pulmonic Valve Structurally normal pulmonic valve without significant stenosis. There is no pulmonic regurgitation. Pericardium Small pericardial effusion is seen Aorta Dilated aortic root and ascending aorta CONCLUSIONS LV systolic function is normal with EF of 60-65% Biatrial enlargement Mild to moderate mitral regurgitation is present RA pressure is elevated. Mild trucuspid regurgitation is seen. Mild pulmonary hypertension is present Small pericardial effusion is seen Dilated Aortic root Compared to prior echocardiogram from 04/25/2020, small pericardial effusion is now present Karel Blum MD (Electronically Signed) Final Date: 16 September 2020 18:02 S
[2020-09-16] MEDS: piperacillin-tazobactam 3.375 GM in sodium chloride 0.9% (plus) 50 ML IV ×2 (10:40→17:29)
[2020-09-16 10:41] LABS: ABG PCO2 43.8 mmHg (35-45); ABG PH Result 7.36 (7.35-7.45); Arterial Blood Gas Hematocrit 36.6 % (42-52); Blood Gas Allen Test Pos; Blood Gas Operator Identificat CAK; Blood Gas Sample Site Radial, left; Blood Gas Sample Type Arterial; HCO3 ABG 24.6 mmol/L (22-26); Oxygen Device NC; PO2 ABG 67.1 mmHg (80.0-100.0)
--- NOTE | 2020-09-16 10:41 | PM.HP ---
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 Patients daughter at bedside provided history. Patient lives at home alone. She stated he has been progressively getting weak over the past few days. Has had poor appetite and nausea however no emesis. Brief loss of consciousness prior to arrival and in EMS. Denies any recent falls with head trauma. No fever or chills. No abdominal pain, diarrhea or constipation. Denies hemoptysis At the time EMS had arrived patient was noted to be hypoxic with O2 sat of 84%. He was placed on O2 via nasal cannula. Addition was noted to have hypotension and bradycardia. He was given 500 cc bolus by EMS. Unclear as to what the rhythm was. He was given atropine 1 mg x2 by EMS. Upon arrival he was noted to be sinus bradycardia. Laboratory workup on arrival showed a WBC of 5.0, hemoglobin of 11.2, hematocrit 34.7 and platelet count of 84. Sodium 135, potassium 4.0, chloride 100, bicarb 21, BUN 23 and creatinine of 1.3. Prior creatinine of 1.3 in March 2020. LFT WNL. Troponin T 32-> 33.75. ProBNP of 1672. Rapid COVID-19 ag negative. Review of Systems General: Reports: 10 or more systems reviewed and unremarkable except in HPI and below Medications/Allergies Home Medications Medication Instructions Recorded Confirmed Last Taken Type albuterol sulfate 2 inh INHALATION Q6H #8 gm 10/24/19 09/16/20 09/15/20 Rx allopurinol 100 mg PO DAILY@62910/24/19 09/16/20 09/15/20 History atorvastatin 10 mg PO DAILY@62910/24/19 09/16/20 09/15/20 History furosemide 40 mg PO DAILY@62910/24/19 09/16/20 09/15/20 History levothyroxine 125 mcg PO DAILY@0600 10/24/19 09/16/20 09/15/20 History metoprolol tartrate 50 mg PO BID 10/24/19 09/16/20 09/15/20 History potassium chloride 20 meq PO DAILY@30 10/24/19 09/16/20 09/15/20 History tamsulosin 0.8 mg PO DAILY@62910/24/19 09/16/20 09/15/20 History warfarin See Rx Instructions .ROUTE .COMPLEX 10/24/19 09/16/20 09/15/20 History diltiazem HCl [Cartia XT] 240 mg PO DAILY@62909/16/20 09/16/20 09/15/20 History lisinopril 2.5 mg PO DAILY@62909/16/20 09/16/20 09/15/20 History Allergies Allergy/AdvReac Type Severity Reaction Status Date / Time No Known Allergies Allergy Unverified 09/16/20 05:54 PFSH Acute PFSH: Medical History (Updated 09/16/20 @ 07:48 by Lalito Cr DO) Aortic aneurysm Aortic regurgitation Atrial fibrillation Cardiomyopathy Gout History of ITP Hyperlipidemia Hypertension Hypothyroid Ischemic heart disease Lung mass Pericardial effusion Surgical History H/O hernia repair History of back surgery Hx of CABG Family History Other CAD (coronary artery disease) Social History Smoking and tobacco status: never smoked Alcohol intake: never Vitals/I&O/Wt Last Vital Signs Temp 97.4 F L 09/16/20 09:23 Pulse 81 09/16/20 10:30 Resp 18 09/16/20 08:48 BP 101/70 09/16/20 10:30 Pulse Ox 96 09/16/20 10:30 09/15/20 09/16/20 09/16/20 22:59 06:59 14:59 Intake Total 9.208 / 9.208 61.42 / 61.42 Balance 9.208 / 9.208 61.42 / 61.42 Weight last 48 hrs Weight 117.934 kg Physical Exam Narrative: EXAM NARRATIVE: General : Chronically ill appearing HEENT : Lower lip lesion, remainder unremarkable CVS - irregularly irregular, Chest: Coarse breath sounds bilaterally Abd: soft nontender nondistended Extremity: bilateral lower extremity edema Data : 09/16/20 06:00 09/16/20 06:00 Micro: Microbiology 09/16/20 06:25 Blood Culture - Preliminary Blood SPECIMEN COLLECTED 09/16/20 06:00 Blood Culture - Preliminary Blood SPECIMEN COLLECTED A&P Assessment and plan (1) Atrial fibrillation, persistent: Status: Acute (2) Hypotension: Status: Acute (3) CHF (congestive heart failure): Status: Acute (4) Lung cancer: Status: Acute (5) Laryngeal cancer: Status: Acute (6) Hyperlipidemia: Status: Acute Qualifiers: Hyperlipidemia type: mixed hyperlipidemia Qualified Code(s): E78.2 - Mixed hyperlipidemia Acute hypoxic respiratory failure - Etiology multifactorial - pneumonia vs fluid overload vs COPD exacerbation - Supplemental o2 as needed - ABG 7.39, PCO2 39.1, p02 85.6, HCO3 23.6 on 4L via NC - Chest x-ray pending - May consider pulmonary consult - Empirically started on zosyn 3.375g IV q8hr - blood culture x2, sputum culture, pro-calcitonin in am - Duo-neb q6hr scheduled - Covid-19 Rapid ag negative - See below for management of ddx Acute on chronic HFpEF exacerbation - Pro-bnp 1672, LE edema - S/p 1500cc additional fluid since arrival - Saline lock IVF - Currently hypotensive -holding lasix - echo ordered -pending Chronic atrial fibrillation with S.V.R - Holding av aleksandar blocking agents - On Cardizem 240 daily, metoprolol 50 mg po bid - s/p Atropine 1mg x2 in EMS - Currently on Dopamine gtt - wean as tolerated - Will consider cardiology consult - Coumadin Hypertension - Hold above meds - Also holding lisinopril 5 mg po daily Dyslipidemia - Lipitor 10 mg PO ohs Hypothyroidism - Levothyroxine 125 mcg PO daily BPH Flomax 0.4 mg PO daily 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 Niru BRADLEY ppx - Pepcid 20 mg IV BID DVT - SCDs - Coumadin therapeutic. Additional Medical Problems Hx of CAD s/p CABH Hx of aortic valve/Thoracic aorta repair Gout Attestations Medical Necessity Statement*: Patient will require over 2 midnight stay in hospital for evaluation and treatment of bradycardia, hypotension, acute hypoxic respiratory failure and possible pneumonia Time Spent in Patient Care: Greater than 35 minutes (>than 50% of time spent in counselling and/or direct pt care on unit). Coding Level of Care Code Acute Plc Programmer for Chg Fwd Diagnoses Atrial fibrillation, persistent I48.19 Hypotension I95.9 CHF (congestive heart failure) I50.9 Lung cancer C34.90 Laryngeal cancer C32.9 Hyperlipidemia E78.2 Hyperlipidemia type: mixed hyperlipidemia
[2020-09-16] MEDS: DOPamine drip 400 MG/250 ML PREMIX 66.3 MG IV (10:42)
[2020-09-16] MEDS: famotidine 20 mg/2 mL INJ IVP ×2 (11:07→22:11)
--- NOTE | 2020-09-16 11:52 | ECG_ITS ---
[facility] Test Date: 2020-09-16 Pat Name: Turner Llanos Department: Room: ICU02 Gender: Male Medical Writer: : 1940 Requested By: Everardo King Order Number: [id number] Severino MD: Karel Blum M.D. Measurements Intervals [place] Rate: 89 P: MD: QRS: 82 QRSD: 97 T: -81 QT: 355 QTc: 432 Interpretive Statements ATRIAL FIBRILLATION LOW QRS VOLTAGE [QRS DEFLECTION < 0.5/1.0 mV IN LIMB/CHEST LEADS] POSSIBLE ANTERIOR MYOCARDIAL INFARCTION [30 ms Q WAVE IN V3/V4, OR R < 0.2 mV IN V4], PROBABLY OLD Compared to ECG 09/16/2020 08:09:54 Right-axis deviation no longer present Myocardial infarct finding still present Electronically Signed On 09-18-2020 19:04:52 TRANSCRIBING MACHINE OPERATOR by Karel Blum M.D. [id number]
[2020-09-16 12:39] LABS: Troponin 5 6HR 31.63 ng/L (0-15)
[2020-09-16 12:50] LABS: Troponin 5 6HR Delta -0.37 ng/L (0-12)
--- NOTE | 2020-09-16 13:14 | PM.CONSULT ---
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 Patient was found to be hypoxic, hypotensive and bradycardic by EMS. He was put on dopamine gtt and fluid bolus was administered. Reported to have sinus bradycardia however tele monitoring shows atrial fibrillation. ECHO performed today shows normal LV systolic function with small pericardial effusion. Review of Systems General: Reports: 10 or more systems reviewed and unremarkable except in HPI and below Const: Reports: malaise; Denies: diaphoresis ENMT: Denies: throat pain, ear or mastoid pain, nasal discharge or nasal congestion Card: Reports: palpitations; Denies: chest pain or syncope Resp: Reports: dyspnea GI: Reports: nausea; Denies: vomiting : Denies: flank pain, dysuria, urinary frequency or urinary urgency Skin/Breast: Denies: rash Neuro: Denies: headache(s) or confusion Meds/Allergies Home Medications and Allergies Home Medications Medication Instructions Recorded Confirmed Last Taken Type albuterol sulfate 2 inh INHALATION Q6H #8 gm 10/24/19 09/16/20 09/15/20 Rx allopurinol 100 mg PO DAILY@62910/24/19 09/16/20 09/15/20 History atorvastatin 10 mg PO DAILY@62910/24/19 09/16/20 09/15/20 History furosemide 40 mg PO DAILY@0630 10/24/19 09/16/20 09/15/20 History levothyroxine 125 mcg PO DAILY@0600 10/24/19 09/16/20 09/15/20 History metoprolol tartrate 50 mg PO BID 10/24/19 09/16/20 09/15/20 History potassium chloride 20 meq PO DAILY@62910/24/19 09/16/20 09/15/20 History tamsulosin 0.8 mg PO DAILY@62910/24/19 09/16/20 09/15/20 History warfarin See Rx Instructions .ROUTE .COMPLEX 10/24/19 09/16/20 09/15/20 History diltiazem HCl [Cartia XT] 240 mg PO DAILY@62909/16/20 09/16/20 09/15/20 History lisinopril 2.5 mg PO DAILY@62909/16/20 09/16/20 09/15/20 History Allergies Allergy/AdvReac Type Severity Reaction Status Date / Time No Known Allergies Allergy Unverified 09/16/20 05:54 Current Medications Current Medications Generic Name Dose Route Start Last Admin Trade Name Freq PRN Reason Stop Dose Admin Famotidine 20 mg 09/16/20 10:45 09/16/20 11:07 Famotidine 20 Mg/2 Ml Inj IVP 20 mg Q12H CHERYL Administration Dopamine HCl/Dextrose 400 mg in 250 mls @ 22.113 mls/hr 09/16/20 06:15 09/16/20 10:42 Intropin Drip IV 15 mcg/kg/min CONT CHERYL 66.3 mls/hr Administration Protocol 5 MCG/KG/MIN Piperacillin Sod/Tazobactam 50 mls @ 12.5 mls/hr 09/16/20 10:30 09/16/20 10:40 Sod 3.375 gm/ Sodium Chloride IV 12.5 mls/hr Q8H CHERYL Administration Protocol As Directed PFSH Acute PFSH: Medical History (Updated 09/17/20 @ 08:17 by Karel Blum M.D) Aortic aneurysm Aortic regurgitation Atrial fibrillation Cardiomyopathy Gout History of ITP Hyperlipidemia Hypertension Hypothyroid Ischemic heart disease Lung mass Pericardial effusion Surgical History H/O hernia repair History of back surgery Hx of CABG Family History Other CAD (coronary artery disease) Social History (Reviewed 09/17/20 @ 08:13 by Martine Christensen Smoking and tobacco status: never smoked Alcohol intake: never Vitals/I&O/Wt Last Vital Signs Temp 97.4 F L 09/16/20 09:23 Pulse 93 09/16/20 12:30 Resp 21 H 09/16/20 12:30 BP 114/77 09/16/20 12:00 Pulse Ox 94 09/16/20 12:30 09/15/20 09/16/20 09/16/20 22:59 06:59 14:59 Intake Total 9.208 / 9.208 196.23 / 196.23 Balance 9.208 / 9.208 196.23 / 196.23 Weight last 48 hrs Weight 260 lb Physical Exam Narrative: EXAM NARRATIVE: General : Ill appearing HEENT : Lower lip lesion, remainder unremarkable CVS - irregularly irregular, normal rate, grade 3/6 systolic murmur Chest: Coarse breath sounds bilaterally Abd: soft nontender nondistended Extremity: bilateral lower extremity edema Data Micro: Micro: Microbiology 09/16/20 12:14 Blood Culture - Pr eliminary Blood [facility] 09/16/20 12:05 Blood Culture - Pr eliminary Blood [facility] 09/16/20 06:25 Blood Culture - Pr eliminary Blood [facility] 09/16/20 06:00 Blood Culture - Pr eliminary Blood [facility] A&P Assessment and plan (1) Atrial fibrillation, persistent: Status: Acute (2) CHF (congestive heart failure): Status: Acute (3) Thoracic aortic aneurysm (TAA): Status: Acute (4) Pericardial effusion: Status: Acute (5) Hyperlipidemia: Status: Acute Qualifiers: Hyperlipidemia type: mixed hyperlipidemia Qualified Code(s): E78.2 - Mixed hyperlipidemia (6) Ischemic heart disease: Status: Acute Patient appears volume overloaded clinically. Initiate lasix 40mg iv bid Tele monitoring Monitor I and Os. Check BMP daily Heart rate has normalized. Patient stays in afib. Can restart metoprolol. Keep holding cardizem for now Wean off dopamine Thank you for involving us with care of this patient. We will continue to follow. Please call with questions. 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
[2020-09-16] MEDS: warfarin 5 mg Tablet PO (16:40)
[2020-09-16 17:21] LABS: Urine Appearance SL Hazy (CLEAR); Urine Color Yellow (Yellow)
[2020-09-16 17:22] LABS: Add Urine Microscopic? YES; Bilirubin Urine Neg (Negative); Blood Urine 3+ (Negative); Glucose Urine UA Norm (Normal); Ketones Urine Negative (Negative); Leukocyte Esterase Urine Negative (Negative); Nitrate Urine Negative (Negative); Protein Urine 1+ (Negative); Urobilinogen Urine 1 mg/dL (Negative); pH Urine 5 (5-7)
[2020-09-16 17:32] LABS: RBC Urine 40-50 /hpf (0-2); Squamous Epithelial Cell Urine RARE /hpf (0-5); WBC Urine 0-4 /hpf (0-5)
[2020-09-16 17:33] LABS: Add Urine Culture? Yes; Bacteria Urine 2+ /hpf; Mucus Urine 1+ /hpf
[2020-09-17] VITALS (45 sets, daily range): BP systolic 90–146; BP diastolic 58–106; PULSE 75–144; RESP 10–81; TEMP 36.6–37; O2SAT 87–100
[2020-09-17] MEDS: piperacillin-tazobactam 3.375 GM in sodium chloride 0.9% (plus) 50 ML IV ×3 (02:56→17:00)
[2020-09-17 04:59] LABS: Eosinophils # 0.1 10^3/uL (0.0-0.8); Eosinophils % 1.4 %; Hemoglobin 11.2 g/dL (11.7-16.6); Lymphocytes # 0.4 10^3/uL (0.8-4.8); Lymphocytes % 11.1 %; Mean Corpuscular HGB Conc 31.1 g/dL (30.0-36.0); Mean Corpuscular Hemoglobin 32.7 pg (28.0-34.0); Mean Platelet Volume 10.7 fL (7.4-10.4); Monocytes # 0.3 10^3/uL (0.2-0.9); Monocytes % 6.8 %; Neutrophils # 2.98 10^3/uL (1.8-7.7); Neutrophils % 80.4 %; Nucleated Red Blood Cells % 0 %; Platelet Count 82 10^3/cmm (130-400); Red Blood Count 3.43 10^6/uL (4.1-5.3); Red Cell Distribution Width 15.6 % (12.1-15.1); White Blood Count 3.7 10^3/uL (4.0-10.0)
[2020-09-17] MEDS: levothyroxine 125 mcg Tablet PO (05:17)
[2020-09-17 05:29] LABS: Alanine Aminotransferase 13 U/L (0-41); Albumin Level 3.9 g/dL (3.5-5.2); Alkaline Phosphatase 86 IU/L (40-130); Anion Gap 13.6 (5-19); Aspartate Amino Transferase 20 U/L (0-40); Blood Urea Nitrogen 26 mg/dL (8-23); Calcium 9.9 mg/dL (8.5-10.5); Carbon Dioxide 27 mmol/L (22-29); Chloride 102 mmol/L (98-107); Glucose 85 mg/dL (65-115); Osmolality Calculated 290 mOsm/kg (285-295); Potassium 4.6 mmol/L (3.5-5.1); Sodium 138 mmol/L (136-145); Total Bilirubin 1.2 mg/dL (0.15-1.2); Total Protein 6.9 g/dL (6.6-8.7)
[2020-09-17] MEDS: atorvastatin 40 mg Tablet 20 MG PO (08:23)
[2020-09-17] MEDS: allopurinol 100 mg Tablet PO (08:23)
[2020-09-17] MEDS: tamsulosin 0.4 mg Capsule 0.8 MG PO (08:23)
[2020-09-17] MEDS: famotidine 20 mg/2 mL INJ IVP ×2 (09:52→22:03)
--- NOTE | 2020-09-17 10:59 | PC.NURSE ---
up in chair after up to bsc at this time small bm noted
[2020-09-17] MEDS: warfarin 5 mg Tablet PO (13:21)
[2020-09-17 13:42] LABS: INR 2.39 (0.8-1.2)
--- NOTE | 2020-09-17 14:36 | P.PN_ITS ---
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 Patients daughter at bedside provided history. Patient lives at home alone. She stated he has been progressively getting weak over the past few days. Has had poor appetite and nausea however no emesis. Brief loss of consciousness prior to arrival and in EMS. Denies any recent falls with head trauma. No fever or chills. No abdominal pain, diarrhea or constipation. Denies hemoptysis At the time EMS had arrived patient was noted to be hypoxic with O2 sat of 84%. He was placed on O2 via nasal cannula. Addition was noted to have hypotension and bradycardia. He was given 500 cc bolus by EMS. Unclear as to what the rhythm was. He was given atropine 1 mg x2 by EMS. Upon arrival he was noted to be sinus bradycardia. Laboratory workup on arrival showed a WBC of 5.0, hemoglobin of 11.2, hematocrit 34.7 and platelet count of 84. Sodium 135, potassium 4.0, chloride 100, bicarb 21, BUN 23 and creatinine of 1.3. Prior creatinine of 1.3 in March 2020. LFT WNL. Troponin T 32-> 33.75. ProBNP of 1672. Rapid COVID-19 ag negative. Upon admission to the hospital patient was eventually weaned off dopamine. Patients blood pressure and heart rate improved. cardiology was consulted. Patient was felt to be volume overloaded. Was initiated on Lasix 40 mg IV b.i.d.. Patients rate remained stable off dopamine. Also was re-initiated on metoprolol 12.5 mg oral b.i.d.. Mental status had improved significantly. Patient was wanting to go home. 09/17/19 No new clinical events overnight. Patient was more alert and awake this morning. Noted to have rapid rate. Also was hypertensive. Sitting in chair at the time of my evaluation period was wanting to go home. Medications: Reviewed: Yes Vitals/I&O/Wt Last Vital Signs Temp 98.6 F 09/17/20 00:00 Pulse 114 H 09/17/20 13:30 Resp 81 H 09/17/20 14:00 BP 129/74 09/17/20 14:00 Pulse Ox 96 09/17/20 08:50 09/16/20 09/17/20 09/17/20 22:59 06:59 14:59 Intake Total 917.917 / 1364.147 270 / 1634.147 700 / 700 Output Total 300 / 300 1700 / 2000 Balance 617.917 / 1064.147 -1430 / -365.853 700 / 700 Weight last 48 hrs Weight 119.408 kg Weight 117.934 kg Physical Exam Narrative: EXAM NARRATIVE: General : Chronically ill appearing However more alert HEENT : Lower lip lesion, remainder unremarkable CVS - irregularly irregular, Chest: Coarse breath sounds bilaterally Abd: soft nontender nondistended Extremity: bilateral lower extremity edema Urinary Catheter Management^: Morgan: Cath Placed During This Visit: no Reason for Continuing Indwelling Catheter: Accurate Measurement of Urinary Output in Critically Ill Patients Data : 09/17/20 04:04 09/17/20 04:04 Micro: Microbiology 09/16/20 12:14 Blood Culture - Preliminary Blood NEGATIVE TO DATE 09/16/20 12:05 Blood Culture - Preliminary Blood NEGATIVE TO DATE 09/16/20 06:25 Blood Culture - Preliminary Blood Gram positive cocci 09/16/20 22:15 Gram Stain - Final Sputum - Expectorated Sputum 09/16/20 06:00 Blood Culture - Preliminary Blood NEGATIVE TO DATE A&P Assessment and plan (1) Atrial fibrillation, persistent: Status: Acute (2) Hypotension: Status: Acute (3) CHF (congestive heart failure): Status: Acute (4) Lung cancer: Status: Acute (5) Laryngeal cancer: Status: Acute (6) Hyperlipidemia: Status: Acute Qualifiers: Hyperlipidemia type: mixed hyperlipidemia Qualified Code(s): E78.2 - Mixed hyperlipidemia Acute Hypoxic respiratory failure - Etiology multi-factorial - pneumonia vs fluid overload vs COPD exacerbation - Supplemental o2 as needed - ABG 7.39, PCO2 39.1, p02 85.6, HCO3 23.6 on 4L via NC on arrival - Empirically started on zosyn 3.375g IV q8hr - Blood culture x2, sputum culture - neg to date - Duo-neb q6hr scheduled - Covid-19 Rapid ag negative - Wean o2 as tolerated - Home o2 eval at time of discharge. - Can consider de-escalating abx - Check pro-calcitonin in am - See below for management of ddx Acute on chronic HFpEF exacerbation - Pro-bnp 1672, LE edema - S/p 1500cc additional fluid since arrival - Lasix on hold due to worsening renal failure - Echo showed - LV systolic function is normal with EF of 60-65% Biatrial enlargement Mild to moderate mitral regurgitation is present RA pressure is elevated. Mild trucuspid regurgitation is seen. Mild pulmonary hypertension is present Small pericardial effusion is seen Dilated Aortic root - Cardiology on board. - May consider resuming lasix Persistent atrial fibrillation now with rapid ventricular response. - Home meds -> Cardizem 240 daily, metoprolol 50 mg po bid - s/p Atropine 1mg x2 in EMS due to slow rate - Weaned off Dopamine gtt - - Cardiology on board - Metoprolol 12.5 mg PO BID restarted today - Coumadin pharmacy to dose Acute renal failure on suspected chronic stage 3 - Creatinine 1.3 on arrival -> increased to 1.5 - Likely pre-renal due to hypotension - Holding dieresis - Avoid hypotension - Repeat BMP in am - Continue to hold lisinopril Hypertension - Metoprolol resumed. 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 Niru BRADLEY ppx - Pepcid 20 mg IV BID - Ok to change to PO DVT - SCDs - Coumadin oharmacy to dose Additional Medical Problems Hx of CAD s/p CABH Hx of aortic valve/Thoracic aorta repair Gout Diet :Mechanical soft Disposition : Patient to return home at discharge. Will need home 02 eval and home care arrangement. Attestations Medical Necessity Statement*: Will require further hospitalization for management of hypoxic respiratory failure, atrial fibrillation and heart failure Time Spent in Patient Care: Greater than 35 minutes (>than 50% of time spent in counselling and/or direct pt care on unit) . 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
--- NOTE | 2020-09-17 20:32 | PM.PN ---
Subjective Subjective: Interval history: Patient is feeling better. More alert today. Creatinine worsened to 1.5 today. Vitals/I&O/Wt Last Vital Signs Temp 98.6 F 09/17/20 00:00 Pulse 108 H 09/17/20 20:00 Resp 13 09/17/20 20:00 BP 97/70 09/17/20 20:00 Pulse Ox 94 09/17/20 20:00 09/17/20 09/17/20 09/17/20 06:59 14:59 22:59 Intake Total 270 / 1634.147 700 / 700 200 / 900 Output Total 1700 / 2000 1500 / 1500 Balance -1430 / -365.853 700 / 700 -1300 / -600 Weight last 48 hrs Weight 263 lb 4 oz Weight 260 lb Physical Exam Narrative: EXAM NARRATIVE: General : Ill appearing HEENT : Lower lip lesion, remainder unremarkable CVS - irregularly irregular, normal rate, grade 3/6 systolic murmur Chest: Coarse breath sounds bilaterally Abd: soft nontender nondistended Extremity: bilateral lower extremity edema Urinary Catheter Management^: Morgan: Cath Placed During This Visit: no Reason for Continuing Indwelling Catheter: Accurate Measurement of Urinary Output in Critically Ill Patients Data : 09/17/20 04:04 09/17/20 04:04 Micro: Microbiology 09/16/20 12:14 Blood Culture - Preliminary Blood NEGATIVE TO DATE 09/16/20 12:05 Blood Culture - Preliminary Blood NEGATIVE TO DATE 09/16/20 06:25 Blood Culture - Preliminary Blood Gram positive cocci 09/16/20 22:15 Gram Stain - Final Sputum - Expectorated Sputum 09/16/20 06:00 Blood Culture - Preliminary Blood NEGATIVE TO DATE A&P Assessment and plan (1) Atrial fibrillation, persistent: Status: Acute (2) CHF (congestive heart failure): Status: Acute (3) Thoracic aortic aneurysm (TAA): Status: Acute (4) Pericardial effusion: Status: Acute (5) Hyperlipidemia: Status: Acute Qualifiers: Hyperlipidemia type: mixed hyperlipidemia Qualified Code(s): E78.2 - Mixed hyperlipidemia (6) Ischemic heart disease: Status: Acute Continue Lasix 40mg BID Uptitrate Metoprolol to 100mg BID. Keep holding cardizem Tele monitoring I and Os. Monitor renal function ECHO shows preserved EF and a small pericardial effusion. Elevated RA pressure Thank you for involving us with care of this patient. We will continue to follow. Please call with questions. Attestations Medical Necessity Statement*: Care expected to cross 2 midnights Coding Level of Care Code Acute Clinical Data Assistant for [employer] Fwd Diagnoses Atrial fibrillation, persistent I48.19 CHF (congestive heart failure) I50.9 Thoracic aortic aneurysm (TAA) I71.2 Pericardial effusion I31.3 Hyperlipidemia E78.2 Hyperlipidemia type: mixed hyperlipidemia Ischemic heart disease I25.9
[2020-09-17] MEDS: metoprolol tartrate 25 mg Tablet 12.5 MG PO (22:03)
[2020-09-18] VITALS (37 sets, daily range): BP systolic 100–139; BP diastolic 67–104; PULSE 82–144; RESP 6–24; TEMP 36.2–37.3; O2SAT 87–97
--- NOTE | 2020-09-18 01:30 | PC.NURSE ---
Physician notified Dr. Prieto notified by phone, pt lung sounds worsening. Increased coarses exp wheezes and increased crackles and audible gurgling at bedside. Pt not in distress and sat 94% on room air. However, patient remains sitting up in chair and refuses to go to bed due to inability to breath. Progress notes and labs reviewed with physician, orders received for small one time dose of 20mg lasix ivp.
[2020-09-18] MEDS: piperacillin-tazobactam 3.375 GM in sodium chloride 0.9% (plus) 50 ML IV ×3 (01:45→17:59)
[2020-09-18] MEDS: FUROsemide 10 mg/mL SDV 2mL 20 MG IVP (01:45)
[2020-09-18] MEDS: levothyroxine 125 mcg Tablet PO (05:59)
--- NOTE | 2020-09-18 07:00 | XRR_ITS ---
PROCEDURE INFORMATION: Exam: XR Chest Exam date and time: 09/18/2020 5:37 AM Age: 80 years old Clinical indication: Condition or disease; Lung condition and disease; Respiratory failure; Status not specified; Prior surgery; Surgery type: Open heart TECHNIQUE: Imaging protocol: XR of the chest Views: 1 view. COMPARISON: CR XR chest 1V portable [id number] 09/16/2020 5:48 AM FINDINGS: Lungs: Coarse interstitial opacities in the right upper lung medially, consistent with fibrosis, similar to prior study. The left lung is clear. Pleural spaces: Unremarkable. No pleural effusion. No pneumothorax. Heart/Mediastinum: Heart size within normal limits. Thoracic aorta is tortuous, similar to prior study. Bones/joints: Median sternotomy wires are present. No airspace consolidation identified. XR/XR chest 1V portable [id number] IMPRESSION: 1. No acute cardiopulmonary process identified.
[2020-09-18 07:43] LABS: Basophils % 0.2 %; Eosinophils # 0.2 10^3/uL (0.0-0.8); Eosinophils % 3.2 %; Hematocrit 41.4 % (42.0-52.0); Hemoglobin 13.2 g/dL (11.7-16.6); Lymphocytes # 0.6 10^3/uL (0.8-4.8); Mean Corpuscular HGB Conc 31.9 g/dL (30.0-36.0); Mean Corpuscular Hemoglobin 33.2 pg (28.0-34.0); Mean Platelet Volume 11.1 fL (7.4-10.4); Monocytes # 0.3 10^3/uL (0.2-0.9); Monocytes % 6.9 %; Neutrophils # 3.62 10^3/uL (1.8-7.7); Neutrophils % 76.1 %; Nucleated Red Blood Cells % 0 %; Platelet Count 96 10^3/cmm (130-400); Red Blood Count 3.98 10^6/uL (4.1-5.3); Red Cell Distribution Width 15.5 % (12.1-15.1); White Blood Count 4.8 10^3/uL (4.0-10.0)
[2020-09-18 07:50] LABS: INR 4.75 (0.8-1.2)
[2020-09-18 08:12] LABS: Procalcitonin 0.12 ng/mL (0-0.5)
[2020-09-18 08:25] LABS: Alanine Aminotransferase 14 U/L (0-41); Albumin Level 3.8 g/dL (3.5-5.2); Alkaline Phosphatase 88 IU/L (40-130); Aspartate Amino Transferase 24 U/L (0-40); Chloride 101 mmol/L (98-107); Globulin 3.4 g/dL (1.3-4.6); Glucose 76 mg/dL (65-115); Potassium 3.9 mmol/L (3.5-5.1); Sodium 139 mmol/L (136-145); Total Protein 7.2 g/dL (6.6-8.7)
--- NOTE | 2020-09-18 08:30 | PC.NURSE ---
FANI Pt is up to chair. During rounding pt is very adamant on leaving today. He stated that he has animals at home to care for. When asked if they needed fed he stated his kids feed them. went over possible complications of going home too soon. Pt acknowledged he understood.
[2020-09-18 09:01] LABS: Blood Urea Nitrogen 19 mg/dL (8-23); Calcium 10.4 mg/dL (8.5-10.5); Magnesium 1.9 mg/dL (1.7-2.3); Osmolality Calculated 289 mOsm/kg (285-295); Total Bilirubin 1.2 mg/dL (0.15-1.2)
[2020-09-18] MEDS: metoprolol tartrate 50 mg Tablet 100 MG PO ×2 (09:24→20:52)
[2020-09-18] MEDS: tamsulosin 0.4 mg Capsule 0.8 MG PO (09:24)
[2020-09-18] MEDS: allopurinol 100 mg Tablet PO (09:25)
[2020-09-18] MEDS: atorvastatin 40 mg Tablet 20 MG PO (09:25)
--- NOTE | 2020-09-18 10:07 | PM.PN ---
Subjective Subjective: Interval history: Patient is feeling better. He has diuresed well. He wants to go home today. I had a detailed discussion that he should stay here as his heart rates of been high. He is in A. fib with RVR. Vitals/I&O/Wt Last Vital Signs Temp 99.2 F 09/18/20 02:00 Pulse 127 H 09/18/20 08:00 Resp 22 H 09/18/20 08:00 BP 138/78 09/18/20 08:00 Pulse Ox 94 09/18/20 07:41 09/17/20 09/18/20 09/18/20 22:59 06:59 14:59 Intake Total 350 / 1050 290 / 1340 300 / 300 Output Total 1500 / 1500 3075 / 4575 Balance -1150 / -450 -2785 / -3235 300 / 300 Weight last 48 hrs Weight 263 lb 4 oz Physical Exam Narrative: EXAM NARRATIVE: General : Ill appearing HEENT : Lower lip lesion, remainder unremarkable CVS - irregularly irregular,tachycardic, grade 3/6 systolic murmur Chest: bilateral crackles Abd: soft nontender nondistended Extremity: bilateral lower extremity edema Urinary Catheter Management^: Morgan: Cath Placed During This Visit: no Reason for Continuing Indwelling Catheter: Accurate Measurement of Urinary Output in Critically Ill Patients Data : 09/19/20 04:46 09/19/20 04:46 Micro: Microbiology 09/16/20 22:15 Gram Stain - Final Sputum - Expectorated Sputum Sputum Culture - Preliminary 09/18/20 09:35 Blood Culture - Preliminary Blood SPECIMEN COLLECTED 09/18/20 09:35 Blood Culture - Preliminary Blood SPECIMEN COLLECTED 09/16/20 16:10 Urine Culture - Final Urine,Clean Catch 09/16/20 12:14 Blood Culture - Preliminary Blood NEGATIVE TO DATE 09/16/20 12:05 Blood Culture - Preliminary Blood NEGATIVE TO DATE 09/16/20 06:25 Blood Culture - Preliminary Blood Gram positive cocci 09/16/20 06:00 Blood Culture - Preliminary Blood NEGATIVE TO DATE A&P Assessment and plan (1) Atrial fibrillation, persistent: Status: Acute (2) CHF (congestive heart failure): Status: Acute (3) Thoracic aortic aneurysm (TAA): Status: Acute (4) Pericardial effusion: Status: Acute (5) Hyperlipidemia: Status: Acute Qualifiers: Hyperlipidemia type: mixed hyperlipidemia Qualified Code(s): E78.2 - Mixed hyperlipidemia (6) Ischemic heart disease: Status: Acute Continue Lasix 40mg BID Continue metoprolol 100mg BID. 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 Patient has not been bradycardic since hospitalization Tele monitoring I and Os. Monitor renal function ECHO shows preserved EF and a small pericardial effusion. Elevated RA pressure Had a discussion with patient that he should stay in hospital today. He does not want to stay though and wants to be discharged Thank you for involving us with care of this patient. We will continue to follow. Please call with questions. Attestations Medical Necessity Statement*: Care expected to cross 2 midnights Coding Level of Care Code Acute Gravity Meter Observer for g Fwd Diagnoses Atrial fibrillation, persistent I48.19 CHF (congestive heart failure) I50.9 Thoracic aortic aneurysm (TAA) I71.2 Pericardial effusion I31.3 Hyperlipidemia E78.2 Hyperlipidemia type: mixed hyperlipidemia Ischemic heart disease I25.9
[2020-09-18] MEDS: famotidine 20 mg/2 mL INJ IVP ×2 (10:22→23:05)
[2020-09-18 10:27] LABS: Thyroid Stimulating Hormone 6.87 uIU/mL (0.27-4.20)
[2020-09-18 10:38] LABS: Anion Gap 12.9 (5-19); Carbon Dioxide 29 mmol/L (22-29)
[2020-09-18 11:20] LABS: INR 5.36 (0.8-1.2)
--- NOTE | 2020-09-18 12:13 | PC.NURSE ---
Pt's daughter is at bedside. Pt has decided it is best if he stays at least one more night. notified.
--- NOTE | 2020-09-18 17:24 | PC.NURSE ---
remains up i chair this shift.
--- NOTE | 2020-09-18 18:12 | PC.NURSE ---
Shift summary: Pt has been up to chair most of the day. Last BP is 118/77 HR 99 O2 94% on RA. Pt denies any pain or shortness at breath.
--- NOTE | 2020-09-18 20:18 | PM.PN ---
Subjective Subjective: Interval history: Denies chest pain or pressure. Reports breathing is comfortable. He says that he feels close to how he would have been about a year ago. Denies any complaints. Very eager to go home, and initially even considering leaving AGAINST MEDICAL ADVICE, however, after a number of discussions with myself, specialist provider, and his daughter reconsidered and decided to stay until tomorrow. Vitals/I&O/Wt Last Vital Signs Temp 97.2 F L 09/18/20 19:00 Pulse 105 H 09/18/20 19:00 Resp 16 09/18/20 19:00 BP 100/67 09/18/20 19:00 Pulse Ox 94 09/18/20 18:00 09/18/20 09/18/20 09/18/20 06:59 14:59 22:59 Intake Total 290 / 1340 350 / 350 600 / 950 Output Total 3075 / 4575 1800 / 1800 Balance -2785 / -3235 350 / 350 -1200 / -850 Weight last 48 hrs Weight 119.408 kg Physical Exam Const: COMMON NORMALS: no acute distress and patient oriented x3 HENMT: COMMON NORMALS: oropharynx normal Neck/C-Spine: COMMON NORMALS: no JVD Resp: COMMON NORMALS: normal respiratory effort and clear to auscultation bilaterally AUSCULTATION: clear to auscultation bilaterally Cardio: COMMON NORMALS: no JVD, regular rhythm, S1 normal heart sound present, S2 normal heart sound present and No murmurs present (Cardio) RHYTHM: regular rhythm HEART SOUNDS: S1 normal heart sound present and S2 normal heart sound present GI: COMMON NORMALS: Normal to inspection, nondistended, normoactive bowel sounds present, Soft to palpation and non-tender PALPATION: Yes Soft to palpation Extremity: COMMON NORMALS: no joint enlargement GENERAL: Yes edema (2+) Neuro: COMMON NORMALS: patient oriented x3 and moves all extremities Skin: COMMON NORMALS: no rashes or lesions noted GENERAL SKIN EXAM: no rashes or lesions noted Urinary Catheter Management^: Morgan: Cath Placed During This Visit: no Reason for Continuing Indwelling Catheter: Accurate Measurement of Urinary Output in Critically Ill Patients Data : 09/18/20 06:08 09/18/20 06:08 Micro: Microbiology 09/16/20 06:25 Blood Culture - Preliminary Blood Staphylococcus sp coag neg 09/16/20 22:15 Gram Stain - Final Sputum - Expectorated Sputum Sputum Culture - Preliminary 09/18/20 09:35 Blood Culture - Preliminary Blood SPECIMEN COLLECTED 09/18/20 09:35 Blood Culture - Preliminary Blood SPECIMEN COLLECTED 09/16/20 16:10 Urine Culture - Final Urine,Clean Catch A&P Assessment and plan (1) Atrial fibrillation, persistent: Status: Acute (2) Hypotension: Status: Acute (3) CHF (congestive heart failure): Status: Acute (4) Lung cancer: Status: Acute (5) Laryngeal cancer: Status: Acute (6) Hyperlipidemia: Status: Acute Qualifiers: Hyperlipidemia type: mixed hyperlipidemia Qualified Code(s): E78.2 - Mixed hyperlipidemia Acute Hypoxic respiratory failure: Resolving. He is doing well on room air, saturating mid 90s. Chest x-ray without suggestion of pneumonia. No signs of sepsis. He is not coughing, no phlegm production. We will hold antibiotic. Monitor. - Blood culture x2, sputum culture - neg to date Acute on chronic HFpEF exacerbation: Diuresing well. Continue IV Lasix. Monitor I&O, renal function. - Echo showed - LV systolic function is normal with EF of 60-65% Biatrial enlargement Mild to moderate mitral regurgitation is present RA pressure is elevated. Mild trucuspid regurgitation is seen. Mild pulmonary hypertension is present Small pericardial effusion is seen Dilated Aortic root Persistent atrial fibrillation now with rapid ventricular response: Discussed with cardiology and with him. We resumed metoprolol 100 mg twice daily. He was considering going home AGAINST MEDICAL ADVICE, but agreed to stay for additional monitoring optimization of control of A. fib with RVR, with reported bradycardia preadmission. Continue to hold Cardizem at this time. - Weaned off Dopamine gtt - -supratherapeutic INR: Rechecked, still elevated. Will hold warfarin. Recheck tomorrow. Acute renal failure on suspected chronic stage 3 -Improved, creatinine down to 1.2. Lisinopril on hold. Hypertension - Metoprolol resumed. 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 Niru BRADLEY ppx - Pepcid DVT - SCDs - Coumadin oharmacy to dose Additional Medical Problems Hx of CAD s/p CABH Hx of aortic valve/Thoracic aorta repair Gout Diet :Mechanical soft Disposition : Patient to return home at discharge. Attestations Medical Necessity Statement*: Continue admission for optimization of control of A. fib with RVR, with bradycardia on presentation, CHF, de-escalation of antibiotic. Coding Level of Care Code Acute Deck Steward for g Fwd Diagnoses Atrial fibrillation, persistent I48.19 Hypotension I95.9 CHF (congestive heart failure) I50.9 Lung cancer C34.90 Laryngeal cancer C32.9 Hyperlipidemia E78.2 Hyperlipidemia type: mixed hyperlipidemia
[2020-09-19] VITALS (27 sets, daily range): BP systolic 90–129; BP diastolic 74–101; PULSE 85–115; RESP 10–25; O2SAT 81–96
[2020-09-19 05:41] LABS: INR 4.08 (0.8-1.2)
[2020-09-19 05:47] LABS: Anion Gap 14.2 (5-19); Basophils % 0.5 %; Blood Urea Nitrogen 20 mg/dL (8-23); Carbon Dioxide 30 mmol/L (22-29); Chloride 104 mmol/L (98-107); Eosinophils # 0.2 10^3/uL (0.0-0.8); Eosinophils % 4.4 %; Glucose 93 mg/dL (65-115); Hematocrit 39.7 % (42.0-52.0); Hemoglobin 12.5 g/dL (11.7-16.6); Lymphocytes # 0.4 10^3/uL (0.8-4.8); Lymphocytes % 9.9 %; Mean Corpuscular HGB Conc 31.5 g/dL (30.0-36.0); Mean Corpuscular Hemoglobin 32.6 pg (28.0-34.0); Mean Corpuscular Volume 103.7 fL (80-94); Monocytes # 0.3 10^3/uL (0.2-0.9); Monocytes % 7.8 %; Neutrophils # 3.35 10^3/uL (1.8-7.7); Neutrophils % 77.2 %; Nucleated Red Blood Cells % 0 %; Osmolality Calculated 300 mOsm/kg (285-295); Platelet Count 84 10^3/cmm (130-400); Potassium 4.2 mmol/L (3.5-5.1); Red Blood Count 3.83 10^6/uL (4.1-5.3); Red Cell Distribution Width 15.2 % (12.1-15.1); Sodium 144 mmol/L (136-145); White Blood Count 4.3 10^3/uL (4.0-10.0)
[2020-09-19] MEDS: levothyroxine 125 mcg Tablet PO (05:55)
[2020-09-19] MEDS: allopurinol 100 mg Tablet PO (08:46)
[2020-09-19] MEDS: metoprolol tartrate 50 mg Tablet 100 MG PO (08:46)
[2020-09-19] MEDS: atorvastatin 40 mg Tablet 20 MG PO (08:46)
[2020-09-19] MEDS: tamsulosin 0.4 mg Capsule 0.8 MG PO (08:46)
--- NOTE | 2020-09-19 09:02 | PC.SOCIAL ---
IMM Intial. Intial IMM given to patient. Signed, dated, and timed. Copy provided to patient at bedside.
--- NOTE | 2020-09-19 09:29 | PM.DCS ---
Discharge Providers Date of Admission: 09/16/20 07:43 Date of Discharge: September 19, 2020 Attending Provider at Admission: Lindsey Hicks Attending Provider at Discharge: Neil Vazquez Primary Care Provider: Miguel Nichols Diagnoses at Discharge Discharge Diagnosis (1) Atrial fibrillation, persistent: Status: Acute (2) CHF (congestive heart failure): Status: Acute (3) Thoracic aortic aneurysm (TAA): Status: Acute (4) Pericardial effusion: Status: Acute Permanent problem details: Small incidentally noted on TTE (5) Hyperlipidemia: Status: Acute Qualifiers: Hyperlipidemia type: mixed hyperlipidemia Qualified Code(s): E78.2 - Mixed hyperlipidemia (6) Ischemic heart disease: Status: Acute (7) Bradycardia: Status: Acute Permanent problem details: Episode pre-admission Reason for Visit Reason for Visit: not feeling well Hospital Course Hospital Course Pleasant 80-year-old gentleman with history of HTN, HLD, hypothyroidism, 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), 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 He received a 500 mill bolus by EMS, additional 500 mill on arrival. He received 1 mg atropine x2 by EMS. Reportedly in sinus bradycardia, although we do not have a strip to confirm. His aleksandar blocking agents were held. At home he was taking 240 mg Cartia XT, metoprolol 50 mg twice daily. He was started on IV diuresis due to noted acute CHF. Temporarily received antibiotic coverage with Zosyn due to concern for possible infectious cause, although this was rapidly discontinued, without signs of infection on subsequent monitoring. Rapid COVID-19 was negative. Initially required dobutamine drip, but weaned off well, with blood pressures and heart rates remained stable. Subsequently in A. fib with RVR. Cardiology was consulted. He was restarted on metoprolol, and dose increased up to 100 mg twice daily. Diltiazem initially held. He continues to diurese well. Oxygenation gradually improved and he did not qualify for oxygen on home evaluation on 09/18. His heart rates improved down to low 100s with metoprolol. No further episodes of bradycardia were noted. For additional heart rate control cardiology recommends resuming from the lower dose Cardizem, 60 mg twice daily. He reports he is doing much better. He has no further respiratory issues. Has had no further episodes of dizziness or presyncope. Lower extremity edema has been improving. He request to return home. On discharge per recommendation of cardiology he is set up with event monitoring for 21 days. Of note during hospitalization his warfarin was also held due to increasing INR into supratherapeutic range, up as high as 5.36 on 09/18. His INR is decreasing down to 4.08 this morning. Hemoglobin remained stable. Of note he does have chronic thrombocytopenia and so he and his daughter are cautioned about the increased risk and to seek medical attention in case of any bleeding, as well as to monitor INR closely. Please follow-up INR and platelet levels at next appointment. Incidentally noted TSH 6.87, levothyroxine dose increased slightly to 137.5 MCG daily. Please follow thyroid function. Physical Exam Const: COMMON NORMALS: no acute distress and patient oriented x3 HENMT: COMMON NORMALS: oropharynx normal Neck/C-Spine: COMMON NORMALS: no JVD Resp: COMMON NORMALS: normal respiratory effort and clear to auscultation bilaterally AUSCULTATION: clear to auscultation bilaterally Cardio: COMMON NORMALS: no JVD, regular rhythm, S1 normal heart sound present, S2 normal heart sound present and No murmurs present (Cardio) RHYTHM: regular rhythm HEART SOUNDS: S1 normal heart sound present and S2 normal heart sound present GI: COMMON NORMALS: Normal to inspection, nondistended, normoactive bowel sounds present, Soft to palpation and non-tender PALPATION: Yes Soft to palpation Extremity: COMMON NORMALS: no joint enlargement and no pedal edema GENERAL: Yes edema (2+, improving) Neuro: COMMON NORMALS: patient oriented x3 and moves all extremities Skin: COMMON NORMALS: no rashes or lesions noted GENERAL SKIN EXAM: no rashes or lesions noted Urinary Catheter Management^: Morgan: Cath Placed During This Visit: no Reason for Continuing Indwelling Catheter: Accurate Measurement of Urinary Output in Critically Ill Patients Discharge Data Data Completed and Pending: Completed Studies During Hospitalization Category Date Time Status XR chest 1V meche ble [id number] Routine Exams 09/18/20 07:00 Completed XR chest 1V meche ble [id number] Stat Exams 09/16/20 05:52 Completed CV echo complete* [id number] Routine Ultrasound 09/16/20 10:00 Completed Pending at discharge Category Date Time Status Basic Metabolic P hemanth AM LABS Lab 09/20/20 04:00 Ordered Basic Metabolic P hemanth AM LABS Lab 09/21/20 04:00 Ordered Blood Culture Sta t Lab 09/16/20 06:25 Results Blood Culture Sta t Lab 09/16/20 12:14 Results Blood Culture Sta t Lab 09/18/20 09:35 Results Complete Blood Co unt w/Auto AM LABS Lab 09/20/20 04:00 Ordered Complete Blood Co unt w/Auto AM LABS Lab 09/21/20 04:00 Ordered Prothrombin Time INR AM LABS Lab 09/20/20 04:00 Ordered Sputum Culture an d Gram Stain [facility] ne Lab 09/16/20 22:15 Results Labs from last 24 hours 09/19/20 09/19/20 09/19/20 04:46 04:46 04:46 WBC 4.3 RBC 3.83 L Hgb 12.5 Hct 39.7 L MCV 103.7 H MCH 32.6 MCHC 31.5 RDW 15.2 H Plt Count 84 L MPV 11.0 H Neut % (Auto) 77.2 Lymph % (Auto) 9.9 Band[place] % (Auto) 7.8 Eos % (Auto) 4.4 Baso % (Auto) 0.5 Neut # (Auto) 3.35 Lymph # (Auto) 0.4 L Band[place] # (Auto) 0.3 Eos # (Auto) 0.2 Baso # (Auto) 0.0 Nucleated RBC % (a uto) 0 Nucleated RBCs # 0.0 PT 41.20 H INR 4.08 H Sodium 144 Potassium 4.2 Chloride 104 Carbon Dioxide 30 H Anion Gap 14.2 BUN 20 Creatinine 1.2 GFR Calculation Not Reportable Glucose 93 Calculated Osmolal ity 300 H Calcium 10.0 TSH 09/18/20 09/18/20 09/18/20 09:35 06:08 06:08 WBC RBC Hgb Hct MCV MCH MCHC RDW Plt Count MPV Neut % (Auto) Lymph % (Auto) Band[place] % (Auto) Eos % (Auto) Baso % (Auto) Neut # (Auto) Lymph # (Auto) Band[place] # (Auto) Eos # (Auto) Baso # (Auto) Nucleated RBC % (a uto) Nucleated RBCs # PT 51.20 H INR 5.36 H* Sodium Potassium Chloride Carbon Dioxide 29 Anion Gap 12.9 BUN Creatinine GFR Calculation Glucose Calculated Osmolal ity Calcium TSH 6.87 H Vitals: Last Vital Signs Temp 97.2 F L 09/18/20 19:00 Pulse 100 09/19/20 08:04 Resp 18 09/19/20 08:04 BP 117/88 09/19/20 08:00 Pulse Ox 94 09/19/20 08:04 Discharge Plan Discharge Patient Disposition: Home Condition: Stable Prescriptions: New levothyroxine 13 mcg capsule 13 mcg PO DAILY Qty: 30 RF: 0 diltiazem HCl 60 mg Capsule,Extended Release 12 Hr 60 mg PO Q12H Qty: 30 RF: 0 Continued furosemide 40 mg tablet 40 mg PO DAILY@0630 RF: 0 atorvastatin 20 mg tablet 10 mg PO DAILY@0630 RF: 0 allopurinol 100 mg tablet 100 mg PO DAILY@0630 RF: 0 tamsulosin 0.4 mg capsule 0.8 mg PO DAILY@0630 RF: 0 levothyroxine 125 mcg tablet 125 mcg PO DAILY@0600 RF: 0 potassium chloride 20 mEq tablet extended release 20 meq PO DAILY@0630 RF: 0 albuterol sulfate 90 mcg/actuation HFA aerosol inhaler 2 inh INHALATION Q6H Qty: 8 RF: 0 lisinopril 2.5 mg tablet 2.5 mg PO DAILY@0630 RF: 0 Changed metoprolol tartrate 50 mg tablet 100 mg PO BID Qty: 120 RF: 0 Held warfarin 5 mg tablet See Rx Instructions .ROUTE .COMPLEX RF: 0 Hold Instructions: Resume on 09/21/20. Discontinued Cartia XT 240 mg capsule,extended release 24hr 240 mg PO DAILY@0630 RF: 0 Discharge Orders: Discharge Order (Routine); Ordered 09/19/20 Ordered By: Neil Vazquez Other Ambulatory Orders: CA cardiac event monitor (Routine) Timeframe: 1 Day Facility: [facility] - Location: Cardiac Diagnostic Laboratory Ordered By: Neil Vazquez DME: Nebulizer with Neb Kit (Order) Location: None Selected Ordered By: Lindsey Hicks Referrals: Miguel Nichols [Primary Care Provider] - 1-3 days Chriss Segal MD [Physician] - 2 weeks Michelle Mix FNP [Nurse Practitioner] - 4-7 days Discharge Diet: Cardiac Discharge Activity: Increase activity as tolerated Activity Restrictions/Additional Instructions: Please monitor your blood pressure heart rate at home 3 times daily, write down values to bring to your appointment. If you experience dizziness, please avoid standing up or walking, measure your blood pressure, heart rate. If your heart rate is very slow, less than 40 bpm, or very fast, above 140-150 bpm even at rest, please call 911. Otherwise if your heart rate is slower than 60 bpm, please hold your metoprolol dose and decrease subsequent metoprolol dose in half and contact your doctor. Please hold your warfarin for 2 days, then resume at 5 mg daily. Have your primary care doctor follow-up INR in 3 days. Please be aware that you are at high risk of bleeding due to chronically low levels of platelets, as well as due to higher INR levels. Please avoid any injury that may result in bleeding, as well as any head injury. If you notice any bleeding that is not resolving, please seek medical attention without delay. Follow up with your primary care doctor about small amount of fluid around your heart (small pericaridal effusion). Discharge Attestations Time Spent in Discharge Care*: greater than 30 min Quality Metrics Clinical Quality Measures During this hospital stay, did patient experience: None Coding Level of Care Code Acute Fuel Agent for Chg Fwd Diagnoses Atrial fibrillation, persistent I48.19 CHF (congestive heart failure) I50.9 Thoracic aortic aneurysm (TAA) I71.2 Pericardial effusion I31.3 Hyperlipidemia E78.2 Hyperlipidemia type: mixed hyperlipidemia Ischemic heart disease I25.9 Bradycardia R00.1
--- NOTE | 2020-09-19 09:37 | PC.CHAP ---
Pastoral Care Encounter/Spiritual Assessment Type of Contact [] Declined men's basketball coach visit [] Patient/Family/Request visit [] Outpatient visit [] Follow-up visit [] Physician referral [] Code/Alert [x] Routine visit [] Staff referral [] Actively dying [] Patient sleeping [] Family support [] [] Out of room [] Palliative care [] [] Receiving care in room [] Pre-surgical visit [] Trauma [] Long length of stay [x] ICU visit [] Other: Relational/Emotional Strength [] Patient feels connected with others/family/visitors/staff [] Distress [] Loneliness/isolation [] Abandonment Spirituality of Patient [] Person of Karli [] Attends Latter-Day of their Karli [] Believes in Prayer [] Reads Bible or Adventism materials [] There are Spiritual issues to be addressed Faculty I On Call Medical Assistant Interventions [x] Prayer [x] Active listening [x] Non-anxious presence [x] Spiritual/emotional support [] Crisis/trauma care [] Spiritual counseling [] Bereavement support [] Provided bereavement packet [] Provided Bible/devotional materials [] Provided toy/stuffed animal, coloring book to patient or family member [] Provided Communion [] Anointing/Brocket [] Salvation [x] Completed spiritual assessment [] Other: Impact on Illness or Injury [] Angry [] Fearful [] Anxious [] Often cries [] Exhaustion [] Unable to work [] Unable to attend pentecostal [] Unable to walk/stand [] Unable to read [] Unable to drive [] Unable to eat/drink [] Unable to sleep [] Unable to be with family [] Patient intubated [] Other: Summary patient setting up in chair / eating... prayed inside room with patient Time spent with patient 10 min
--- NOTE | 2020-09-19 10:08 | P.PN_ITS ---
Subjective Subjective: Interval history: Patient is feeling better. Yesterday wanted to leave but then decided to stay. Denies any complaints of chest pain, shortness of breath or palpitations. He has been diuresing well. Heart rates are better controlled. We increased the dose of Metoprolol to 100mg BID. Vitals/I&O/Wt Last Vital Signs Temp 97.2 F L 09/18/20 19:00 Pulse 100 09/19/20 08:04 Resp 18 09/19/20 08:04 BP 117/88 09/19/20 08:00 Pulse Ox 94 09/19/20 08:04 09/18/20 09/19/20 09/19/20 22:59 06:59 14:59 Intake Total 840 / 1190 100 / 1290 120 / 120 Output Total 1800 / 1800 750 / 2550 Balance -960 / -610 -650 / -1260 120 / 120 Physical Exam Narrative: EXAM NARRATIVE: General : Alert and oriented x 3 HEENT : Lower lip lesion, remainder unremarkable CVS - irregularly irregular,tachycardic, grade 3/6 systolic murmur Chest:Mild crackles Abd: soft nontender nondistended Extremity: bilateral lower extremity edema Urinary Catheter Management^: Morgan: Cath Placed During This Visit: no Reason for Continuing Indwelling Catheter: Accurate Measurement of Urinary Output in Critically Ill Patients Data : 09/19/20 04:46 09/19/20 04:46 Micro: Microbiology 09/18/20 09:35 Blood Culture - Preliminary Blood NEGATIVE TO DATE 09/18/20 09:35 Blood Culture - Preliminary Blood NEGATIVE TO DATE 09/16/20 06:25 Blood Culture - Preliminary Blood Staphylococcus sp coag neg 09/16/20 22:15 Gram Stain - Final Sputum - Expectorated Sputum Sputum Culture - Preliminary 09/16/20 16:10 Urine Culture - Final Urine,Clean Catch A&P Assessment and plan (1) Atrial fibrillation, persistent: Status: Acute (2) CHF (congestive heart failure): Status: Acute (3) Thoracic aortic aneurysm (TAA): (4) Pericardial effusion: Status: Acute (5) Hyperlipidemia: Qualifiers: Hyperlipidemia type: mixed hyperlipidemia Qualified Code(s): E78.2 - Mixed hyperlipidemia (6) Ischemic heart disease: Status: Acute Ideally patient should stay in hospital for 1 more day but he wants to go home. He has diuresed well. Switch to lasix PO 40 mg daily Continue metoprolol 100mg BID. Heart rates have improved but still high. Will recommend initiating cardizem at a lower dose. 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 Patient has not been bradycardic since hospitalization. No EKGs or strips showing bradycardia since hospitalization ECHO showed preserved EF and a small pericardial effusion. Elevated RA pressure Outpatient follow up with Dr Segal Thank you for involving us with care of this patient. Please call with questions. Attestations Medical Necessity Statement*: Care expected to cross 2 midnights Coding Level of Care Code Acute Media Assistant for Chg Fwd Diagnoses Atrial fibrillation, persistent I48.19 CHF (congestive heart failure) I50.9 Thoracic aortic aneurysm (TAA) I71.2 Pericardial effusion I31.3 Hyperlipidemia E78.2 Hyperlipidemia type: mixed hyperlipidemia Ischemic heart disease I25.9
[2020-09-19] MEDS: famotidine 20 mg/2 mL INJ IVP (10:16)
[2020-09-19] MEDS: dilTIAZem ER (12HR) 60 mg Capsule PO (10:16)
--- NOTE | 2020-09-22 12:37 | PC.SOCIAL ---
Was called by micro on 09/21/2020 with critical result on 1 out of 4 blood cultures positive for a bacteria but likely a contaminant. Sent information to Dr Vazquez who has reviewed and agreed is likely a contaminant and no further orders needed other than to follow up with patient to ensure he is doing well and will update PCP. Called patient and updated him of information below. He indicates he has been afebrile and overall doing well. He does have an appt with Dr Nichols today at 2 pm. Called and talked to nurse Nunez to update and sent both culture results from blood since he had multiple sets and of each 1 of 4 showed a bacteria likely a contaminant. She will watch for fax and make sure Dr Nichols has them for review. Updated her patient does have an appt at 2pm today. Faxed information to Mayra frank with verification that fax was transmitted successfully.
== END 2020-09-19 14:35 | disposition home or self-care (01) | DRG 291 ==
LOC: ER 07:48 → ICU 08:44
PROVIDERS: Emergency Medicine; Admitting Provider Hospitalist; Emergency Provider Family Medicine; PCP Family Medicine; Visit Provider Internal Medicine
DX: I13.0 Hypertensive heart and chronic kidney disease with heart failure and stage 1 through stage 4 chronic kidney disease, or unspecified chronic kidney disease (principal); I50.33 Acute on chronic diastolic (congestive) heart failure; J96.01 Acute respiratory failure with hypoxia; I48.19 Other persistent atrial fibrillation; D69.3 Immune thrombocytopenic purpura; I31.3 Pericardial effusion (noninflammatory); N17.9 Acute kidney failure, unspecified; N18.30 Chronic kidney disease, stage 3 unspecified; E78.2 Mixed hyperlipidemia; E03.9 Hypothyroidism, unspecified; Z85.819 Personal history of malignant neoplasm of unspecified site of lip, oral cavity, and pharynx; Z85.118 Personal history of other malignant neoplasm of bronchus and lung; Z92.21 Personal history of antineoplastic chemotherapy; Z92.3 Personal history of irradiation; I25.10 Atherosclerotic heart disease of native coronary artery without angina pectoris; Z95.1 Presence of aortocoronary bypass graft; J42 Unspecified chronic bronchitis; I95.9 Hypotension, unspecified; M10.9 Gout, unspecified; N40.0 Benign prostatic hyperplasia without lower urinary tract symptoms; Z79.01 Long term (current) use of anticoagulants; I34.0 Nonrheumatic mitral (valve) insufficiency
CPT/HCPCS: 36415; 36600; 51702; 71045; 80048; 80053; 81001; 82803; 83605; 83735; 83880; 84145; 84443; 84484; 85025; 85378; 85610; 87040; 87070; 87086; 87205; 87426; 92523; 92610; 93005; 93306; 94664; 97116; 97162; 99285; J1265; J1940; J2543; J3490

== ENCOUNTER 2020-10-12 09:03 | Outpatient (CLI) | payer MEDICARE, SELFPAY ==
[2020-10-12 10:04] LABS: Basophils % 0.6 %; Eosinophils # 0.2 10^3/uL (0.0-0.8); Eosinophils % 6.4 %; Hematocrit 35.5 % (42.0-52.0); Hemoglobin 11.1 g/dL (11.7-16.6); Lymphocytes # 0.6 10^3/uL (0.8-4.8); Lymphocytes % 18.1 %; Mean Corpuscular HGB Conc 31.3 g/dL (30.0-36.0); Mean Corpuscular Hemoglobin 32.8 pg (28.0-34.0); Mean Platelet Volume 10.7 fL (7.4-10.4); Monocytes # 0.2 10^3/uL (0.2-0.9); Monocytes % 7.1 %; Neutrophils # 2.21 10^3/uL (1.8-7.7); Neutrophils % 67.8 %; Nucleated Red Blood Cells % 0 %; Platelet Count 87 10^3/cmm (130-400); Red Blood Count 3.38 10^6/uL (4.1-5.3); Red Cell Distribution Width 15.6 % (12.1-15.1); White Blood Count 3.3 10^3/uL (4.0-10.0)
--- NOTE | 2020-10-12 10:15 | CT_ITS ---
WS: [id number] CT CHEST WITH INTRAVENOUS CONTRAST HISTORY: LUNG CANCER TECHNIQUE: Contiguous 5 mm axial imaging performed on the thorax. Coronal and sagittal reformats are submitted. All CT scans at [facility] use at least one of these dose optimization techniq ues: automated exposure control; mA and/or kV adjustment per patient size (includes targeted exams wh ere dose is matched to clinical indication); or iterative reconstruction. CONTRAST: Omnipaque 300; 95 mL IV. DLP: 1117.19 mGy.cm COMPARISON: 04/06/2020, 09/24/2019 and 06/24/2019 Lungs and central airway: Poorly defined soft tissue nodule in the RIGHT upper lobe continues to decr ease in size now measuring 1.8 x 1.3 cm. This nodule is difficult to separate from the adjacent postr adiation pneumonitis with fibrosis. New spiculated nodule measuring 1.3 cm in the medial LEFT lower l obe adjacent to the descending aorta with adjacent groundglass attenuation. Pleura: New small bilateral pleural effusions. Heart and pericardium: Moderate enlargement of the heart. Moderate size circumferential pericardial e ffusion measuring up to 1.6 cm with slight increase in size. Coronary artery calcifications. Mediastinum and pito: Soft tissue mediastinal thickening is unchanged since the prior study. Probably due to lymphoid tissue and edema from radiation. No obvious progression of lymph nodes or new lymph nodes. Vessels: Ectatic moderate atherosclerosis aorta. Chest wall and lower neck: Mild diffuse anasarca. Upper abdomen: Diffuse soft tissue anasarca. Adrenal glands are poorly visualized due to the edema wi thin the mesentery and retroperitoneum. No definite nodules are identified although the LEFT adrenal gland is mildly prominent. Osseous structures: Median sternotomy. Prior CABG. CT/CT chest w con* [id number] IMPRESSION: 1. No significant change in size of the RIGHT upper lobe soft tissue treated n eoplasm with adjacent postradiation pneumonitis and atelectasis. 2. New small bilateral pleural effusions. 3. New medial LEFT lower lobe spiculated nodule with adjacent groundglass atte nuation. The nodule measures 1.3 cm in diameter. Recommend follow-up chest CT i n 3 months. New metastatic lesion or postinflammatory nodule. 4. Marked cardiomegaly and slight increase in the pericardial effusion. 5. Diffuse soft tissue anasarca. 6. No change in the lymphoid tissue in the mediastinum and hilum.
[2020-10-12 10:23] LABS: Alanine Aminotransferase 16 U/L (0-41); Albumin Level 3.8 g/dL (3.5-5.2); Alkaline Phosphatase 93 IU/L (40-130); Aspartate Amino Transferase 18 U/L (0-40); Blood Urea Nitrogen 21 mg/dL (8-23); Calcium 9.4 mg/dL (8.5-10.5); Carbon Dioxide 27 mmol/L (22-29); Chloride 103 mmol/L (98-107); Globulin 2.8 g/dL (1.3-4.6); Glucose 83 mg/dL (65-115); Osmolality Calculated 288 mOsm/kg (285-295); Sodium 138 mmol/L (136-145); Total Bilirubin 0.8 mg/dL (0.15-1.2); Total Protein 6.6 g/dL (6.6-8.7)
[2020-10-12] MEDS: iohexol 300 mg/mL 100 mL Btl IV (10:53)
== END 2020-10-12 09:04 | disposition home or self-care (01) ==
PROVIDERS: PCP Family Medicine; Visit Provider Internal Medicine Medical Oncology
DX: C34.11 Malignant neoplasm of upper lobe, right bronchus or lung (principal); J90 Pleural effusion, not elsewhere classified; R91.1 Solitary pulmonary nodule; I31.3 Pericardial effusion (noninflammatory); I51.7 Cardiomegaly
CPT/HCPCS: 36415; 71260; 80053; 85025; Q9967

== ENCOUNTER 2020-10-16 06:03 | Outpatient (CLI) | payer MEDICARE, SELFPAY ==
--- NOTE | 2020-10-16 18:57 | ONC FU_ITS ---
Dr. Santacruz Patient Follow-Up Note Patient: Turner Llanos Unit #: [id number]: 1940 Dicatated By: Jb Santacruz M.D.Date of Visit:Oct 16, 2020 Onc Med Follow-up/Prog Note Chief Complaint: Oral pharyngeal carcinoma/lung cancer. 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 By clinical evaluation the lung cancer was stage IB (T2a, N0, M0). He had initially presented to Dr. Nichols with hemoptysis, which had started back in February 2016. He was referred to Dr. Trevizo. Had evaluation with chest CT on 04/25/2016. It showed a right apical subpleural nodule subjacent to the right innominate artery. It measured 2 x 2 centimeters. There is no associated hilar or mediastinal adenopathy and there is no evidence of other metastatic disease. He had further evaluation with PET/CT on 05/04/2016. It showed an FDG avid 2 cm nodule in the right lung apex, SUV 5.9. Also noted was a hypermetabolic focus in the left base of tongue, SUV 15.6. There was no associated cervical, clavicular, mediastinal, or hilar adenopathy. He was referred to Dr. Keene. On 06/18/2016 he underwent microdirect laryngoscopy. He was noted to have an ulcerated lesion at the left base of tongue. Biopsy showed invasive moderately differentiated squamous cell carcinoma, P 16 positive. He was then referred to Dr. Eduardo in [place]. he had further evaluation with CT and MRI of the neck. On 08/28/2016 he underwent direct laryngoscopy, bronchoscopy, and cervical esophagoscopy. He was found to have a friable tumor involving the bilateral base of tongue with extension into the vallecula. It was inseparable from the lingual surface of the epiglottis. There was normal-appearing glottic larynx, piriform sinuses, trachea, and first order bronchi, and cervical esophagus. Biopsies from both left and right base of tongue again showed invasive moderately differentiated squamous cell carcinoma. He was then referred to Dr. Madrigal for further evaluation of the pulmonary nodule. Patient reportedly declined to have a lung biopsy due to the associated risk involved. Patient was deemed inoperable due to the local extent of the tumor and his underlying comorbidities. He was seen by Dr. García for consideration of chemoradiation for the oral pharyngeal cancer and for possible SBRT to the lung lesion. He then began radiation concurrently with high-dose cisplatin chemotherapy, cycle 1 day 1 on 10/28/2016. He tolerated his initial dose of chemotherapy without acute toxicity, but his further chemotherapy was held due to prolonged neutropenia. He was able to continue his radiation. He completed treatment on 12/13/2016 to a total dose of 7000 cGy. He did experience significant local toxicity, mainly severe sore throat and difficulty swallowing. He was treated empirically with fluconazole, which did cause a significant increase in his INR, but that subsequently resolved. He did not experience any bleeding or other complications. He had gradual resolution of his treatment related toxicity. His repeat chest CT on 01/27/2017 showed 8 mm pulmonary nodule at the right apex. It appeared stable compared to the PET/CT from October 2016, but it had decreased in size compared to the chest CT from April 2016. Restaging CT scans of the neck and chest on 07/02/2017 showed post treatment related radiation changes within the soft tissues of the neck, but with no cervical lymphadenopathy or other evidence of disease progression. The right upper lobe pulmonary nodule had increased significantly, to 1.7 x 2.1 cm. It was noted that the location would not likely be amenable to CT directed needle biopsy. Follow-up chest CT on 09/08/2018 showed further increase in the right upper lobe mass to 3.2 x 2.0 cm. It was noted to abut the mediastinal structures. Subcentimeter mediastinal and hilar lymph nodes were noted to be very similar in appearance to the prior study from June 2017. A restaging PET/CT on 09/26/2018 showed FDG avid right upper lobe mass measuring 3.5 x 3.1 cm, SUV 13.2, consistent with malignancy. There was no suspicious mediastinal adenopathy and there was no evidence of for recurrence of disease at the base of the tongue. He was again referred to Dr. Per Ledezma, and on 11/27/2018 he underwent bronchoscopy with transbronchial biopsy from the right upper lobe apical segment and EBUS with FNA biopsies of station 7 and station 4R lymph nodes. The trans-bronchial right upper lobe biopsy showed invasive moderately differentiated squamous cell carcinoma. The FNA lymph node biopsies were nondiagnostic. He began radiation concurrently with weekly carboplatin/Taxol chemotherapy on 12/21/2018. As of week 3 his chemotherapy was put on hold due to a drop in the neutrophil count to 1200. He was able to continue the radiation. He completed treatment on 02/08/2019. Due to his having stopped chemotherapy the total dosage was increased to 7000 cGy. During the radiation he did require antibiotic therapy for pneumonia. A follow-up chest CT on 03/23/2019 showed decrease in the size of the right upper lobe neoplasm measuring 2.3 x 3.7 x 2.9 cm. Also noted was improved postobstructive pneumonia in the right upper lobe laterally, but with persistent infiltrate and air bronchograms. There was patchy groundglass infiltrate in the right lower lobe which appeared to have progressed from the previous study. A left adrenal gland nodule appeared stable. He was recommended to continue observation/expectant management. Restaging PET/CT on 06/24/2019 showed interval improvement in the right upper lobe neoplasm measuring 1.6 x 2.6 cm. There did appear to be increased subsegmental atelectasis and consolidation in the right upper lobe medially and in the superior segment of the right lower lobe medially. There was resolution of previously described hazy groundglass infiltrates in the right lower lobe. The left adrenal lesion appeared stable, consistent with adenoma. There was no evidence of disease progression. He continued on observation/expectant management for the head/neck and the lung cancers. In April 2019 he had another episode of visual loss in the left eye. His head MRI showed foci of remote lacunar infarcts, but there were no acute findings and there was no evidence of metastatic disease. Carotid Doppler study showed no evidence of significant carotid artery stenosis. His other medical illnesses include hypertension, hyperlipidemia, and hypothyroidism. 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 He has chronic atrial fibrillation and chronic lower extremity edema. He also has a history of chronic thrombocytopenia. He is a nonsmoker. He does not drink alcohol. INTERIM HISTORY: His chest CT on 09/24/2019 showed interval improvement in the right upper lobe neoplasm with the dominant mass measuring 1.5 x 2.0 CM. There was stable parenchymal fibrosis with surrounding consolidation and air bronchograms in the right upper lobe medially and in the superior segment of the adjacent right lower lobe. Right hilar thickening/lymphadenopathy also appeared unchanged. Surveillance chest CT on 04/06/2020 showed continued decrease in the right upper lobe spiculated nodule measuring 1.8 x 1.3 cm. There was minimal improvement in postobstructive atelectasis. There were additional radiation changes in the right upper and right lower lobes. There was moderate enlargement of the heart with circumferential pericardial effusion, which had moderately increased in size. Right paratracheal and perihilar soft tissue appeared unchanged. There was no worsening adenopathy and no evidence of other metastatic disease. With those findings he continued on observation/expectant management. Repeat chest CT on 10/12/2020 showed some further decrease in the size of the right upper lobe nodule measuring 1.8 x 1.3 cm. It was noted to be difficult to separate it from adjacent postradiation pneumonitis/fibrosis. A new spiculated nodule was noted in the medial left lower lobe adjacent to the descending aorta measuring 1.3 cm. There was adjacent groundglass attenuation, and it was felt to be possibly postinflammatory. A 3-month follow-up CT was recommended. Also noted were new small bilateral pleural effusions, marked cardiomegaly with a slight increase in pericardial effusion, and diffuse soft tissue anasarca. He has been having shortness of breath and he also has complained of cough and wheezing. He had attributed those symptoms to bronchitis, and he did seem to have some improvement after he started treatment with Advair. He still has limited activity tolerance. He does force himself to do some light work, I would rate his ECOG score 2. He has had significant weight gain, by our scale 21 pounds, which I assume is fluid related. He does not have fever or night sweats. He has no GI or complaints. He has no significant joint or bone pain. He does not complain of headache. He has occasional dizziness when he first gets up in the morning. He has no focal neurologic symptoms. Medications: Allopurinol 1 Tablet (of 100 mg) Oral daily, Atorvastatin Calcium 0.5 Tablet (of 20 mg) Oral daily, DiltiaZEM CD 1 Capsule (of 90 mg) Capsule SR 24 HR Oral b.i.d., Furosemide 1 (40 mg) Tablet Oral daily, Klor-Con M10 1 Tablet (of 20 meq) Tablet, controlled release Oral daily, Levothyroxine Sodium 1 Tablet (of 137.5 mcg) Oral daily, Lisinopril 1 Tablet (of 2.5 mg) Oral daily, Metoprolol Tartrate 1 Tablet (of 100 mg) Oral b.i.d., MiraLax Pack Oral daily PRN, Nitroglycerin Tablet, sublingual Sublingual PRN, Tamsulosin HCl 2 (0.4 mg) Capsule Oral daily, Warfarin Sodium (5 mg) Tablet Oral Take as Directed Allergies: No Known Allergies. Vital Signs: Performed on Oct 16, 2020 09:45 Height - 71.00 in Weight - 264.4 lbs (HIGH) BSA - 2.37 sq.m BMI - 36.88 (HIGH) Temperature - 97.9 F (LOW) Pulse - 80 /min Respiration - 20 /min BP - 111/72 mm(hg) O2 Sat - 93 % (LOW) Pain - 0 Fatigue - 10 Physical Examination: Constitutional - He appears generally weak, Eyes - Sclerae nonicteric. Conjunctivae clear, ENMT - No lesions noted in the oral cavity, Hematologic/Lymphatic - No cervical, clavicular, or axillary adenopathy noted, Respiratory - Lungs show some decrease in air movement bilaterally with very coarse breath sounds. There is no wheezing noted, Cardiovascular - Heart rhythm is irregular. There is a II/ systolic murmur. There is no gallop or rub noted, Abdomen - Mildly distended but soft. Liver and spleen are not enlarged. There is no abdominal mass noted and there is no obvious ascites. There is no inguinal adenopathy, Extremities - There are venous stasis changes bilaterally. There is 3 to 4+ lower extremity edema. There are purpuric lesions on both arms, Neurologic - No focal neurologic deficits noted. Lab/Imaging: CBC shows hemoglobin 11.1 g, white blood cell count 3300, and platelet count 87,000. Comprehensive metabolic profile shows stable renal function with BUN 21 and creatinine 1.0 mg/dL. Bilirubin and liver enzymes were normal. His albumin is normal at 3.8 g/dL. A recent TSH from 09/18/2020 was mildly elevated at 6.87 ???IU/mL. Problem List: 1. 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 It was deemed inoperable due to location to adjacent mediastinal structures. 2. 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 3. Hypertension. 4. Hyperlipidemia. 5. Hypothyroidism. 6. Chronic atrial fibrillation, on anticoagulation with warfarin. 7. He underwent aortic valve repair and repair of thoracic aortic aneurysm in May 2013. 8. He has chronic lower extremity edema. 9. He has a history of chronic thrombocytopenia. 10. During follow-up he was found to have cardiomegaly and he has had associated congestive heart failure. 11. He has had evidence of pericardial effusion, but not hemodynamically significant. Problems Addressed with this Encounter and Plan: 1. 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 It was deemed inoperable due to location to adjacent mediastinal structures. He began radiation concurrently with weekly carboplatin/Taxol chemotherapy on 12/21/2018. His chemotherapy was put on hold at week 3 due to neutropenia. He continued radiation. He completed treatment on 02/08/2019. Due to his having stopped chemotherapy, the total dosage was increased to 7000 cGy. He has since then been on expectant management. He has had evidence of response by follow-up CT scans. At this point he appears to be having significant fluid retention and he has fairly marginal performance status. There has been no evidence of progression of the right upper lobe pulmonary nodule. His current CT does show a new nodule in the left lower lobe which will require follow-up at a 3-month interval. I am repeating the echocardiogram due to the cardiomegaly and pericardial effusion, I do have concerns about the possibility of malignant effusion. He will have further evaluation as indicated. In the meantime, I will be addressing the issue of the fluid retention with Dr. Nichols. 2. 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 He underwent radiation concurrently with high-dose cisplatin chemotherapy. He completed his radiation on 12/13/2016 to a total dose of 7000 cGy. He received day 1 cisplatin only, as further chemotherapy was held due to persistent neutropenia. He appeared to have a complete response by follow-up PET/CT studies. He remains on observation/expectant management. Signed By: Jb Santacruz M.D. <<Signature on File>>
== END 2020-10-16 06:04 | disposition home or self-care (01) ==
LOC: ONCMED 06:08
PROVIDERS: PCP Family Medicine; Visit Provider Internal Medicine Medical Oncology
DX: C34.11 Malignant neoplasm of upper lobe, right bronchus or lung (principal); R91.1 Solitary pulmonary nodule; Z85.818 Personal history of malignant neoplasm of other sites of lip, oral cavity, and pharynx; I51.7 Cardiomegaly; I31.3 Pericardial effusion (noninflammatory); Z92.3 Personal history of irradiation; Z92.21 Personal history of antineoplastic chemotherapy
CPT/HCPCS: 99214

== ENCOUNTER 2020-10-16 14:37 | Outpatient (CLI) | payer MEDICARE, SELFPAY ==
--- NOTE | 2020-10-16 14:45 | USCV_ITS ---
[facility] Age: 80 Gender: M : 1940 Exam Date: 10/16/2020 14:58 Ordering Phys: Jb Santacruz MD Technologist: Anahy Carias Exam Location: [facility] – [place] Indication: PERICARDIAL EFFUSION BP: 211 / 77 HR: 74 Rhythm: Sinus Technical Quality: Adequate MEASUREMENTS (Male / Female) Normal Values 2D ECHO LV Diastolic Diameter PLAX 4.2 cm 4.2 - 5.9 / 3.9 - 5.3 cm LV Systolic Diameter PLAX 2.5 cm LV Chamber Size 3.1 cm IVS Diastolic Thickness 1.1 cm 0.6 - 1.0 / 0.6 - 0.9 cm IVS Systolic Thickness 1.7 cm LVPW Diastolic Thickness 1.3 cm 0.6 - 1.0 / 0.6 - 0.9 cm LVPW Systolic Thickness 1.9 cm RV Chamber Size 3.8 cm LVOT Diameter 2.0 cm LV Ejection Fraction 2D Teich 72.9 % LV Ejection Fraction MOD 2C 63.6 % LV Ejection Fraction 2C AL 65.9 % LA Diameter 6.5 cm LA Width 6.0 cm LA Height 6.5 cm RA Width 5.7 cm RA Height 6.3 cm Aorta at Sinotubular Diameter 4.0 cm M-MODE LV Diastolic Diameter MM 4.6 cm 4.2 - 5.9 / 3.9 - 5.3 cm LV Systolic Diameter MM 2.4 cm LV Ejection Fraction MM Teich 78.7 % IVS Diastolic Thickness MM 1.0 cm 0.6 - 1.0 / 0.6 - 0.9 cm IVS Systolic Thickness MM 1.4 cm LVPW Diastolic Thickness MM 1.0 cm 0.6 - 1.0 / 0.6 - 0.9 cm LVPW Systolic Thickness MM 2.0 cm RV Diastolic Diameter MM 2.3 cm Aortic Annulus Diameter 3.3 cm LA Ao Ratio MM 2.0 MV E Point Septal Separation 0.4 cm DOPPLER AV Peak Velocity 138.0 cm/s LVOT Peak Velocity 111.0 cm/s AV Area Cont Eq vti 2.2 cm squared AV Area Cont Eq pk 2.6 cm squared MV Area PHT 4.8 cm squared Mitral E to A Ratio 77.3 MV E' Velocity 64.5 cm/s Mitral E to MV E' Ratio 8.3 Mitral E to LV E' Lateral Ratio 8.7 Mitral E to LV E' Septal Ratio 7.9 TR Peak Velocity 248.1 cm/s TR Peak Gradient 24.6 mmHg TR Mean Velocity 188.6 cm/s TR Mean Gradient 16.0 mmHg TR Velocity Time Integral 79.3 cm TV Peak E Velocity 80.0 cm/s Right Atrial Pressure 15.0 mmHg Pulmonary Artery Systolic Pressu 39.6 mmHg PV Peak Velocity 67.0 cm/s RV Acceleration Time 0.1 s RV Ejection Time 0.4 s RV AcT/ET 0.3 FINDINGS Left Ventricle Normal left ventricular cavity size. Normal left ventricular systolic function. No regional wall motion abnormalities. Left ventricular ejection fraction is estimated at 60 %. In the presence of atrial fibrillation diastolic function cannot be assessed accurately. Right Ventricle Normal right ventricular size. Moderate pulmonary hypertension, RVSP 39.6 mmHg. Right Atrium Severely increased right atrial size. Left Atrium Severely increased left atrial size. Mitral Valve Mildly thickened mitral valve. No mitral valve stenosis. Moderate to sever mitral valve regurgitation. Aortic Valve Moderate aortic valve calcification. No aortic valve stenosis. Mild aortic valve regurgitation. Tricuspid Valve Severe tricuspid valve regurgitation. Pulmonic Valve Structurally normal pulmonic valve without significant stenosis. There is no pulmonic regurgitation. Pericardium Normal pericardium without effusion. Aorta Normal ascending aorta dimension. CONCLUSIONS 1-Normal left ventricular cavity size. Normal left ventricular systolic function. No regional wall motion abnormalities. Left ventricular ejection fraction is estimated at 60 %. In the presence of atrial fibrillation diastolic function cannot be assessed accurately. 2-Normal right ventricular size. Moderate pulmonary hypertension, RVSP 39.6 mmHg. 3-Severe biatrial enlargement 4-Mildly thickened mitral valve. No mitral valve stenosis. Moderate to sever mitral valve regurgitation. 5-Moderate aortic valve calcification. No aortic valve stenosis. Mild aortic valve regurgitation. 6-Severe tricuspid valve regurgitation. 7-There is no pericardial effusion. 8-Right atrial pressure is around 20 mm of mercury. 9-No significant change since the prior echocardiogram study of 09/16/2020. Jean Robles MD (Electronically Signed) Final Date: 16 October 2020 21:25 S
== END 2020-10-16 14:38 | disposition home or self-care (01) ==
LOC: RAD 14:44
PROVIDERS: PCP Family Medicine; Visit Provider Internal Medicine Medical Oncology
DX: I31.3 Pericardial effusion (noninflammatory) (principal); I08.3 Combined rheumatic disorders of mitral, aortic and tricuspid valves
CPT/HCPCS: 93306

== ENCOUNTER 2021-04-18 09:35 | Outpatient (CLI) | payer MEDICARE, SELFPAY ==
[2021-04-18 10:44] LABS: Basophils % 0.6 %; Eosinophils # 0.2 10^3/uL (0.0-0.8); Hematocrit 38.4 % (42.0-52.0); Hemoglobin 12.4 g/dL (11.7-16.6); Lymphocytes # 0.7 10^3/uL (0.8-4.8); Lymphocytes % 22.3 %; Mean Corpuscular HGB Conc 32.3 g/dL (30.0-36.0); Mean Corpuscular Hemoglobin 33.6 pg (28.0-34.0); Mean Corpuscular Volume 104.1 fl (80-94); Mean Platelet Volume 11.6 fL (7.4-10.4); Monocytes # 0.2 10^3/uL (0.2-0.9); Monocytes % 6.2 %; Neutrophils # 2.13 10^3/uL (1.8-7.7); Neutrophils % 65.9 %; Nucleated Red Blood Cells % 0 %; Platelet Count 95 10^3/cmm (130-400); Red Blood Count 3.69 10^6/uL (4.1-5.3); Red Cell Distribution Width 14.7 % (12.1-15.1); White Blood Count 3.2 10^3/uL (4.0-10.0)
--- NOTE | 2021-04-18 10:56 | CT_ITS ---
WS: [id number] CT CHEST WITH INTRAVENOUS CONTRAST HISTORY: LUNG CANCER TECHNIQUE: Contiguous 5 mm axial imaging performed on the thorax. Coronal and sagittal reformats are submitted. All CT scans at [facility] use at least one of these dose optimization techniques: automated exposure control; mA and/or kV adjustment per patient size (includes targeted exams where dose is matched to clinical indication); or iterative reconstruction. CONTRAST: Omnipaque 300; 95 mL IV. DLP: 982.95 mGy.cm COMPARISON: 10/12/2020 and 04/06/2020 Lungs and central airway: Continued improvement in the post radiation changes and nodularity in the m edial RIGHT upper lobe. There is chronic atelectasis in bronchiectasis in the medial RIGHT upper lobe . The soft tissue nodule measures 1.9 x 1.1 cm along the RIGHT paratracheal region which is unchanged . No new pulmonary nodule or mass. Pleura: Previously described pleural effusions have resolved. Heart and pericardium: Enlargement of the heart. Moderate biatrial enlargement. Mild circumferential pericardial effusion has decreased in size now measuring 9 mm in largest diameter. Mediastinum and pito: Mild soft tissue stranding and infiltration in the mediastinum and hilum. No re gression of soft tissue. No new or increasing adenopathy. Vessels: Moderate atherosclerosis aorta. Mild pulmonary artery dilatation. 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 Upper abdomen: No adrenal nodule. Circumferential thickening of the distal esophagus has been stable over multiple prior exams. Osseous structures: No osteoblastic or osteolytic bone disease. CT/CT chest w con* [id number] IMPRESSION: 1. Continued improvement in the post radiation changes with bronchiectasis and atelectasis in the medial RIGHT upper lobe. No increase in size of the RIGHT p aratracheal nodule. 2. No new or increasing mediastinal or hilar lymph nodes. 3. Resolved bilateral pleural effusions. 4. Mild decrease in the pericardial effusion.
[2021-04-18 11:59] LABS: Alanine Aminotransferase 16 U/L (0-41); Albumin Level 3.9 g/dL (3.5-5.2); Alkaline Phosphatase 88 IU/L (40-130); Anion Gap 12.9 (5-19); Aspartate Amino Transferase 22 U/L (0-40); Blood Urea Nitrogen 21 mg/dL (8-23); Calcium 9.9 mg/dL (8.5-10.5); Carbon Dioxide 28 mmol/L (22-29); Chloride 103 mmol/L (98-107); Globulin 3.1 g/dL (1.3-4.6); Glucose 76 mg/dL (65-115); Osmolality Calculated 292 mOsm/kg (285-295); Potassium 3.9 mmol/L (3.5-5.1); Sodium 140 mmol/L (136-145)
[2021-04-18] MEDS: iohexol 300 mg/mL 100 mL Btl IV (12:24)
== END 2021-04-18 09:36 | disposition home or self-care (01) ==
PROVIDERS: PCP Family Medicine; Visit Provider Internal Medicine Medical Oncology
DX: C34.11 Malignant neoplasm of upper lobe, right bronchus or lung (principal); I31.3 Pericardial effusion (noninflammatory)
CPT/HCPCS: 36415; 71260; 80053; 85025; Q9967

== ENCOUNTER 2021-09-20 13:56 | Outpatient (CLI) | payer MEDICARE, SELFPAY ==
[2021-09-20 15:29] LABS: Basophils % 0.4 %; Eosinophils # 0.1 10^3/uL (0.0-0.8); Eosinophils % 5.2 %; Hematocrit 36.7 % (42.0-52.0); Hemoglobin 11.6 g/dL (11.7-16.6); Lymphocytes # 0.6 10^3/uL (0.8-4.8); Mean Corpuscular HGB Conc 31.6 g/dL (30.0-36.0); Mean Corpuscular Volume 104.3 fl (80-94); Mean Platelet Volume 11.2 fL (7.4-10.4); Monocytes # 0.2 10^3/uL (0.2-0.9); Monocytes % 6.4 %; Neutrophils % 63.6 %; Nucleated Red Blood Cells % 0 %; Platelet Count 91 10^3/cmm (130-400); Red Blood Count 3.52 10^6/uL (4.1-5.3); Red Cell Distribution Width 15.3 % (12.1-15.1); White Blood Count 2.7 10^3/uL (4.0-10.0)
--- NOTE | 2021-09-23 13:45 | ONC FU_ITS ---
Dr. Santacruz Patient Follow-Up Note Patient: Turner Llanos Unit #: [id number]: 1940 Dicatated By: Jb Santacruz M.D.Date of Visit:Sep 20, 2021 Onc Med Follow-up/Prog Note Chief Complaint: Oral pharyngeal carcinoma/lung cancer. 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 By clinical evaluation the lung cancer was stage IB (T2a, N0, M0). He had initially presented to Dr. Nichols with hemoptysis, which had started back in February 2016. He was referred to Dr. Trevizo. Had evaluation with chest CT on 04/25/2016. It showed a right apical subpleural nodule subjacent to the right innominate artery. It measured 2 x 2 centimeters. There is no associated hilar or mediastinal adenopathy and there is no evidence of other metastatic disease. He had further evaluation with PET/CT on 05/04/2016. It showed an FDG avid 2 cm nodule in the right lung apex, SUV 5.9. Also noted was a hypermetabolic focus in the left base of tongue, SUV 15.6. There was no associated cervical, clavicular, mediastinal, or hilar adenopathy. He was referred to Dr. Keene. On 06/18/2016 he underwent microdirect laryngoscopy. He was noted to have an ulcerated lesion at the left base of tongue. Biopsy showed invasive moderately differentiated squamous cell carcinoma, P 16 positive. He was then referred to Dr. Eduardo in [place]. he had further evaluation with CT and MRI of the neck. On 08/28/2016 he underwent direct laryngoscopy, bronchoscopy, and cervical esophagoscopy. He was found to have a friable tumor involving the bilateral base of tongue with extension into the vallecula. It was inseparable from the lingual surface of the epiglottis. There was normal-appearing glottic larynx, piriform sinuses, trachea, and first order bronchi, and cervical esophagus. Biopsies from both left and right base of tongue again showed invasive moderately differentiated squamous cell carcinoma. He was then referred to Dr. Madrigal for further evaluation of the pulmonary nodule. Patient reportedly declined to have a lung biopsy due to the associated risk involved. Patient was deemed inoperable due to the local extent of the tumor and his underlying comorbidities. He was seen by Dr. García for consideration of chemoradiation for the oral pharyngeal cancer and for possible SBRT to the lung lesion. He then began radiation concurrently with high-dose cisplatin chemotherapy, cycle 1 day 1 on 10/28/2016. He tolerated his initial dose of chemotherapy without acute toxicity, but his further chemotherapy was held due to prolonged neutropenia. He was able to continue his radiation. He completed treatment on 12/13/2016 to a total dose of 7000 cGy. He did experience significant local toxicity, mainly severe sore throat and difficulty swallowing. He was treated empirically with fluconazole, which did cause a significant increase in his INR, but that subsequently resolved. He did not experience any bleeding or other complications. He had gradual resolution of his treatment related toxicity. His repeat chest CT on 01/27/2017 showed 8 mm pulmonary nodule at the right apex. It appeared stable compared to the PET/CT from October 2016, but it had decreased in size compared to the chest CT from April 2016. Restaging CT scans of the neck and chest on 07/02/2017 showed post treatment related radiation changes within the soft tissues of the neck, but with no cervical lymphadenopathy or other evidence of disease progression. The right upper lobe pulmonary nodule had increased significantly, to 1.7 x 2.1 cm. It was noted that the location would not likely be amenable to CT directed needle biopsy. Follow-up chest CT on 09/08/2018 showed further increase in the right upper lobe mass to 3.2 x 2.0 cm. It was noted to abut the mediastinal structures. Subcentimeter mediastinal and hilar lymph nodes were noted to be very similar in appearance to the prior study from June 2017. A restaging PET/CT on 09/26/2018 showed FDG avid right upper lobe mass measuring 3.5 x 3.1 cm, SUV 13.2, consistent with malignancy. There was no suspicious mediastinal adenopathy and there was no evidence of for recurrence of disease at the base of the tongue. He was again referred to Dr. Per Ledezma, and on 11/27/2018 he underwent bronchoscopy with transbronchial biopsy from the right upper lobe apical segment and EBUS with FNA biopsies of station 7 and station 4R lymph nodes. The trans-bronchial right upper lobe biopsy showed invasive moderately differentiated squamous cell carcinoma. The FNA lymph node biopsies were nondiagnostic. He began radiation concurrently with weekly carboplatin/Taxol chemotherapy on 12/21/2018. As of week 3 his chemotherapy was put on hold due to a drop in the neutrophil count to 1200. He was able to continue the radiation. He completed treatment on 02/08/2019. Due to his having stopped chemotherapy the total dosage was increased to 7000 cGy. During the radiation he did require antibiotic therapy for pneumonia. A follow-up chest CT on 03/23/2019 showed decrease in the size of the right upper lobe neoplasm measuring 2.3 x 3.7 x 2.9 cm. Also noted was improved postobstructive pneumonia in the right upper lobe laterally, but with persistent infiltrate and air bronchograms. There was patchy groundglass infiltrate in the right lower lobe which appeared to have progressed from the previous study. A left adrenal gland nodule appeared stable. He was recommended to continue observation/expectant management. Restaging PET/CT on 06/24/2019 showed interval improvement in the right upper lobe neoplasm measuring 1.6 x 2.6 cm. There did appear to be increased subsegmental atelectasis and consolidation in the right upper lobe medially and in the superior segment of the right lower lobe medially. There was resolution of previously described hazy groundglass infiltrates in the right lower lobe. The left adrenal lesion appeared stable, consistent with adenoma. There was no evidence of disease progression. He continued on observation/expectant management for the head/neck and the lung cancers. In April 2019 he had another episode of visual loss in the left eye. His head MRI showed foci of remote lacunar infarcts, but there were no acute findings and there was no evidence of metastatic disease. Carotid Doppler study showed no evidence of significant carotid artery stenosis. His other medical illnesses include hypertension, hyperlipidemia, and hypothyroidism. 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 He has chronic atrial fibrillation and chronic lower extremity edema. He also has a history of chronic thrombocytopenia. He is a nonsmoker. He does not drink alcohol. INTERIM HISTORY: His chest CT on 09/24/2019 showed interval improvement in the right upper lobe neoplasm with the dominant mass measuring 1.5 x 2.0 CM. There was stable parenchymal fibrosis with surrounding consolidation and air bronchograms in the right upper lobe medially and in the superior segment of the adjacent right lower lobe. Right hilar thickening/lymphadenopathy also appeared unchanged. Surveillance chest CT on 04/06/2020 showed continued decrease in the right upper lobe spiculated nodule measuring 1.8 x 1.3 cm. There was minimal improvement in postobstructive atelectasis. There were additional radiation changes in the right upper and right lower lobes. There was moderate enlargement of the heart with circumferential pericardial effusion, which had moderately increased in size. Right paratracheal and perihilar soft tissue appeared unchanged. There was no worsening adenopathy and no evidence of other metastatic disease. With those findings he continued on observation/expectant management. Repeat chest CT on 10/12/2020 showed some further decrease in the size of the right upper lobe nodule measuring 1.8 x 1.3 cm. It was noted to be difficult to separate it from adjacent postradiation pneumonitis/fibrosis. A new spiculated nodule was noted in the medial left lower lobe adjacent to the descending aorta measuring 1.3 cm. There was adjacent groundglass attenuation, and it was felt to be possibly postinflammatory. A 3-month follow-up CT was recommended. Also noted were new small bilateral pleural effusions, marked cardiomegaly with a slight increase in pericardial effusion, and diffuse soft tissue anasarca. His repeat chest CT on 04/18/2021 showed continued improvement in the postradiation changes and nodularity in the medial right upper lobe. A soft tissue nodule measuring 1.9 x 1.1 cm along the right paratracheal region appeared unchanged. There were no new pulmonary nodules noted. The heart was noted to be enlarged, but there was interval improvement in the pericardial effusion and and bilateral pleural effusions. Circumferential thickening of the distal esophagus appeared stable. He is seen for a follow-up visit. He complains that he has no energy and he has limited activity. He has able to do housework and live independently. He has good appetite. He has not had fever or night sweats. His mouth is sometimes sore, but he has been swallowing okay. He very seldom has cough. He has some shortness of breath, but his breathing is generally okay. He has not had chest pain. He has no GI or complaints. He has pain in his knees when he first gets up in the morning, but he has no other joint or bone pain. He does not complain of headache. He occasionally gets lightheaded. He has no numbness/paresthesia or other focal neurologic symptoms. Medications: Allopurinol 1 Tablet (of 100 mg) Oral daily, Atorvastatin Calcium 0.5 Tablet (of 20 mg) Oral daily, DiltiaZEM CD 1 Capsule (of 90 mg) Capsule SR 24 HR Oral b.i.d., Furosemide 1 (40 mg) Tablet Oral daily, Klor-Con M10 1 Tablet (of 20 meq) Tablet, controlled release Oral daily, Levothyroxine Sodium 1 Tablet (of 137.5 mcg) Oral daily, Lisinopril 1 Tablet (of 2.5 mg) Oral daily, Metoprolol Tartrate 1 Tablet (of 100 mg) Oral b.i.d., MiraLax Pack Oral daily PRN, Nitroglycerin Tablet, sublingual Sublingual PRN, Tamsulosin HCl 2 (0.4 mg) Capsule Oral daily, Warfarin Sodium (5 mg) Tablet Oral Take as Directed Allergies: No Known Allergies. Vital Signs: Performed on Sep 20, 2021 15:37 Height - 71.00 in Weight - 243.0 lbs (LOW) BSA - 2.29 sq.m BMI - 33.89 (HIGH) Temperature - 98.8 F Pulse - 93 /min Respiration - 18 /min BP - 130/69 mm(hg) O2 Sat - 97 % Pain - 0 Fatigue - 8 Physical Examination: Constitutional - He appears somewhat weak generally, Eyes - Sclerae nonicteric. Conjunctivae clear, ENMT - No lesions noted in the oral cavity, Neck - There is induration in the neck and he has poor mobility. His neck tends to remain and fixed flexion. There is no mass palpable, Hematologic/Lymphatic - No cervical, clavicular, or axillary adenopathy noted, Respiratory - Lungs show coarse breath sounds with some decrease in air movement bilaterally, Cardiovascular - Heart rhythm is irregular. There is a II/ systolic murmur. There is no gallop or rub noted, Abdomen - Mildly distended but soft. Liver and spleen are not enlarged. There is no abdominal mass noted and there is no obvious ascites. There is no inguinal adenopathy, Extremities - There are venous stasis changes bilaterally. There is 3+ lower extremity edema, worse on the right, Neurologic - No focal neurologic deficits noted. Lab/Imaging: Test performed on Sep 20, 2021 15:05 WBC 2.7 10 3/uL RBC 3.52 10 6/uL HGB 11.6 g/dL HCT 36.7 % MCV 104.3 fl MCH 33.0 pg MCHC 31.6 g/dL RDW 15.3 % Platelet Count 91 10 3/cmm MPV 11.2 fL Neutrophils 1.70 10 3/uL Lymphocytes 0.6 10 3/uL Monocytes 0.2 10 3/uL Eosinophils 0.1 10 3/uL Basophils 0.0 10 3/uL Neutrophil % 63.6 % Lymphocyte % 24.0 % Monocyte % 6.4 % Eosinophil % 5.2 % Basophils % 0.4 % NRBC % 0 % Problem List: 1. 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 It was deemed inoperable due to location to adjacent mediastinal structures. 2. 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 3. Hypertension. 4. Hyperlipidemia. 5. Hypothyroidism. 6. Chronic atrial fibrillation, on anticoagulation with warfarin. 7. He underwent aortic valve repair and repair of thoracic aortic aneurysm in May 2013. 8. He has chronic lower extremity edema. 9. He has a history of chronic thrombocytopenia. 10. During follow-up he was found to have cardiomegaly and he has had associated congestive heart failure. 11. He has had evidence of pericardial effusion, but not hemodynamically significant. Problems Addressed with this Encounter and Plan: 1. 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 It was deemed inoperable due to location to adjacent mediastinal structures. He began radiation concurrently with weekly carboplatin/Taxol chemotherapy on 12/21/2018. His chemotherapy was put on hold at week 3 due to neutropenia. He continued radiation. He completed treatment on 02/08/2019. Due to his having stopped chemotherapy, the total dosage was increased to 7000 cGy. He had evidence of response by follow-up CT scans. He was then followed expectantly. During follow-up he has had somewhat marginal performance status. He has had significant issues with fluid retention, but that appears to be associated with underlying congestive heart failure. Thus far there has been no evidence of recurrence/progression of the lung cancer. He remains on observation/expectant management. I will see him again in 6 months. 2. 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 He underwent radiation concurrently with high-dose cisplatin chemotherapy. He completed his radiation on 12/13/2016 to a total dose of 7000 cGy. He received day 1 cisplatin only, as further chemotherapy was held due to persistent neutropenia. He appeared to have a complete response by follow-up PET/CT studies. He remains on observation/expectant management. Signed By: Jb Santacruz M.D. <<Signature on File>>
== END 2021-09-20 13:57 | disposition home or self-care (01) ==
PROVIDERS: PCP Family Medicine; Visit Provider Internal Medicine Medical Oncology
DX: Z08 Encounter for follow-up examination after completed treatment for malignant neoplasm (principal); Z85.118 Personal history of other malignant neoplasm of bronchus and lung; Z85.818 Personal history of malignant neoplasm of other sites of lip, oral cavity, and pharynx; E78.5 Hyperlipidemia, unspecified; E03.9 Hypothyroidism, unspecified; I48.20 Chronic atrial fibrillation, unspecified; Z79.01 Long term (current) use of anticoagulants; R60.9 Edema, unspecified; I50.9 Heart failure, unspecified; I11.0 Hypertensive heart disease with heart failure; I31.3 Pericardial effusion (noninflammatory); Z79.899 Other long term (current) drug therapy; Z92.21 Personal history of antineoplastic chemotherapy; Z92.3 Personal history of irradiation; Z86.2 Personal history of diseases of the blood and blood-forming organs and certain disorders involving the immune mechanism
CPT/HCPCS: 36415; 85025; 99214

== ENCOUNTER → 2021-11-28 11:16 | Outpatient (BNVA) | payer MEDICARE, SELFPAY | PROVIDERS: PCP Family Medicine; Visit Provider Internal Medicine Cardiovascular Disease | DX: I34.0 Nonrheumatic mitral (valve) insufficiency (principal); I36.1 Nonrheumatic tricuspid (valve) insufficiency; I48.19 Other persistent atrial fibrillation; I11.0 Hypertensive heart disease with heart failure; I50.32 Chronic diastolic (congestive) heart failure | CPT/HCPCS: 99214 ==

== ENCOUNTER 2022-01-17 12:16 | Outpatient (CLI) | payer MEDICARE, SELFPAY ==
--- NOTE | 2022-01-17 12:45 | USCV_ITS ---
Turner Llanos Age: 81 Gender: M : 1940 Exam Date: 01/17/2022 12:49 Ordering Phys: Chriss Segal MD ([email or web address]) Technologist: Kale Golden Exam Location: [facility] [place] Indication: swelling PROCEDURES: Venous duplex imaging was performed in only the right lower extremity. The following venous structures were evaluated: common femoral vein, profunda vein, proximal portion of the greater saphenous vein, superficial femoral vein, and the popliteal vein. In addition, the posterior tibial and peroneal trunk were evaluated. Serial compression, augmentation maneuvers, and spectral Doppler flow evaluation were performed. FINDINGS: Normal 2-D Doppler and augmentation and compressibility throughout the lower extremity venous structures. Additional imaging through the proximal calf veins also reveals no thrombus. Limited evaluation of the greater saphenous vein is patent with no thrombus. CONCLUSIONS No DVT right lower extremity. Dr. Tala Gross DO (Electronically Signed) Final Date: 17 January 2022 13:20 S
== END 2022-01-17 12:17 | disposition home or self-care (01) ==
LOC: RAD 12:18
PROVIDERS: PCP Family Medicine; Visit Provider Internal Medicine Cardiovascular Disease
DX: M79.661 Pain in right lower leg (principal); M79.89 Other specified soft tissue disorders
CPT/HCPCS: 93971

== ENCOUNTER 2022-04-29 11:30 | Oncology outpatient (recurring) (ONCR) | payer MEDICARE, SELFPAY ==
[2022-04-26] MEDS: iohexol 350 mg/mL 100 mL Btl IV (15:41)
--- NOTE | 2022-04-26 16:00 | CT_ITS ---
WS: [id number] CT CHEST TECHNIQUE: Contrast enhanced CT of the chest with coronal and sagittal reformatted images. CLINICAL INFORMATION: malignant neoplasm of upper lobe, right bronchus or lung COMPARISON: None. DLP: 828.[address] scans at [facility] use at least one of these dose optimization techniques: automated e xposure control; mA and/or kV adjustment per patient size (includes targeted exams where dose is matc hed to clinical indication); or iterative reconstruction. FINDINGS: Moderate chronic emphysematous changes. Stable postradiation changes with bronchiectasis an d fibrosis in the RIGHT upper lobe medially along the mediastinum. Stable soft tissue thickening/nodu larity in this area. No evidence of progressed disease. Mild narrowing of the RIGHT distal main stem bronchus unchanged. No focal pneumonia or pleural fluid. Sternotomy. CABG. Tortuous thoracic aorta. Aortic calcification. No axillary lymphadenopathy. No mediastinal or hilar lymphadenopathy. Splenic artery calcification. Hepatomegaly. Small esophageal hiatal hernia. RIGHT adrenal gland is no rmal. Small LEFT adrenal adenoma measuring [address]/CT chest w con* [id number] IMPRESSION: 1. No evidence of new or progressed disease. 2. Stable post radiation changes with bronchiectasis and atelectasis RIGHT upp er lobe along the mediastinum. Stable soft tissue thickening in this area. 3. No new or progressed mediastinal or hilar lymphadenopathy. 4. Cardiomegaly. 5. Prior sternotomy with CABG. Coronary calcification. Enlarged LEFT atrium.
[2022-04-26 16:26] LABS: Blood Urea Nitrogen 21 mg/dL (8-23)
[2022-04-29 10:49] LABS: Basophils % 0.3 %; Eosinophils # 0.1 10^3/uL (0.0-0.8); Eosinophils % 3.5 %; Hematocrit 36.5 % (42.0-52.0); Hemoglobin 11.7 g/dL (11.7-16.6); Lymphocytes # 0.7 10^3/uL (0.8-4.8); Lymphocytes % 22.2 %; Mean Corpuscular HGB Conc 32.1 g/dL (30.0-36.0); Mean Corpuscular Hemoglobin 33.8 pg (28.0-34.0); Mean Corpuscular Volume 105.5 fl (80-94); Mean Platelet Volume 10.9 fL (7.4-10.4); Monocytes # 0.2 10^3/uL (0.2-0.9); Monocytes % 6.6 %; Neutrophils # 2.12 10^3/uL (1.8-7.7); Neutrophils % 67.1 %; Nucleated Red Blood Cells % 0 %; Platelet Count 77 10^3/cmm (130-400); Red Blood Count 3.46 10^6/uL (4.1-5.3); Red Cell Distribution Width 14.6 % (12.1-15.1); White Blood Count 3.2 10^3/uL (4.0-10.0)
[2022-04-29 11:14] LABS: Alanine Aminotransferase 15 U/L (0-41); Alkaline Phosphatase 82 U/L (40-130); Anion Gap 15.2 (5-19); Aspartate Amino Transferase 24 U/L (0-40); Blood Urea Nitrogen 19 mg/dL (8-23); Carbon Dioxide 27 mmol/L (22-29); Chloride 100 mmol/L (98-107); Glucose 93 mg/dL (65-115); Osmolality Calculated 288 mOsm/kg (285-295); Potassium 4.2 mmol/L (3.5-5.1); Sodium 138 mmol/L (136-145); Total Bilirubin 0.7 mg/dL (0.15-1.2)
[2022-04-29 15:25] LABS: Vitamin B12 503 pg/mL (232-1245)
== END 2022-05-20 23:59 | disposition home or self-care (01) ==
PROVIDERS: PCP Family Medicine; Visit Provider Internal Medicine Medical Oncology
DX: Z08 Encounter for follow-up examination after completed treatment for malignant neoplasm; Z85.118 Personal history of other malignant neoplasm of bronchus and lung; Z92.21 Personal history of antineoplastic chemotherapy; Z92.3 Personal history of irradiation
CPT/HCPCS: 36415; 71260; 80053; 82565; 82607; 84520; 85025; 99213; 99214

== ENCOUNTER → 2022-05-30 11:52 | Outpatient (BNVA) | payer MEDICARE, SELFPAY | PROVIDERS: PCP Family Medicine; Visit Provider Internal Medicine Cardiovascular Disease | DX: R06.02 Shortness of breath (principal); I50.32 Chronic diastolic (congestive) heart failure; N18.9 Chronic kidney disease, unspecified; I13.0 Hypertensive heart and chronic kidney disease with heart failure and stage 1 through stage 4 chronic kidney disease, or unspecified chronic kidney disease; Z79.890 Hormone replacement therapy; I25.5 Ischemic cardiomyopathy; I48.19 Other persistent atrial fibrillation; M79.89 Other specified soft tissue disorders; I08.1 Rheumatic disorders of both mitral and tricuspid valves | CPT/HCPCS: 80048; 83880; 84443; 99214 ==

== ENCOUNTER 2022-11-25 12:29 | Oncology outpatient (recurring) (ONCR) | payer MEDICARE, SELFPAY ==
[2022-11-25 13:30] LABS: Basophils % 0.6 %; Eosinophils # 0.2 10^3/uL (0.0-0.8); Eosinophils % 6.2 %; Hematocrit 38.2 % (42.0-52.0); Hemoglobin 12.1 g/dL (11.7-16.6); Lymphocytes # 0.8 10^3/uL (0.8-4.8); Mean Corpuscular HGB Conc 31.7 g/dL (30.0-36.0); Mean Corpuscular Hemoglobin 31.9 pg (28.0-34.0); Mean Corpuscular Volume 100.8 fl (80-94); Mean Platelet Volume 10.3 fL (7.4-10.4); Monocytes # 0.3 10^3/uL (0.2-0.9); Neutrophils # 2.27 10^3/uL (1.8-7.7); Neutrophils % 63.9 %; Nucleated Red Blood Cells % 0 %; Platelet Count 93 10^3/cmm (130-400); Red Blood Count 3.79 10^6/uL (4.1-5.3); Red Cell Distribution Width 14.1 % (12.1-15.1); White Blood Count 3.6 10^3/uL (4.0-10.0)
[2022-11-25 13:59] LABS: Alanine Aminotransferase 14 U/L (0-41); Albumin Level 3.9 g/dL (3.5-5.2); Alkaline Phosphatase 89 U/L (40-130); Anion Gap 13.9 (5-19); Aspartate Amino Transferase 22 U/L (0-40); Blood Urea Nitrogen 18 mg/dL (8-23); Calcium 9.4 mg/dL (8.5-10.5); Carbon Dioxide 27 mmol/L (22-29); Chloride 102 mmol/L (98-107); Globulin 2.7 g/dL (1.3-4.6); Glucose 94 mg/dL (65-115); Osmolality Calculated 290 mOsm/kg (285-295); Potassium 3.9 mmol/L (3.5-5.1); Sodium 139 mmol/L (136-145); Total Bilirubin 0.7 mg/dL (0.15-1.2); Total Protein 6.6 g/dL (6.6-8.7)
== END 2022-12-18 23:59 | disposition home or self-care (01) ==
PROVIDERS: PCP Family Medicine; Visit Provider Internal Medicine Medical Oncology
DX: D61.818 Other pancytopenia (principal)
CPT/HCPCS: 36415; 80053; 85025; 99214

== ENCOUNTER → 2022-11-25 12:30 | Outpatient (BNVA) | payer MEDICARE, SELFPAY | PROVIDERS: PCP Family Medicine; Visit Provider Preventive Medicine Occupational Medicine | DX: Z08 Encounter for follow-up examination after completed treatment for malignant neoplasm; Z85.118 Personal history of other malignant neoplasm of bronchus and lung; Z85.818 Personal history of malignant neoplasm of other sites of lip, oral cavity, and pharynx; R60.1 Generalized edema; I50.9 Heart failure, unspecified; Z92.21 Personal history of antineoplastic chemotherapy; Z92.3 Personal history of irradiation | CPT/HCPCS: 99214 ==

== ENCOUNTER → 2022-12-10 13:25 | Outpatient (BNVA) | payer MEDICARE, SELFPAY | PROVIDERS: PCP Family Medicine; Visit Provider Internal Medicine Cardiovascular Disease | DX: I34.0 Nonrheumatic mitral (valve) insufficiency (principal); I36.1 Nonrheumatic tricuspid (valve) insufficiency; I25.9 Chronic ischemic heart disease, unspecified; I48.19 Other persistent atrial fibrillation; I11.0 Hypertensive heart disease with heart failure; I50.32 Chronic diastolic (congestive) heart failure | CPT/HCPCS: 99214 ==

== ENCOUNTER 2023-05-23 12:50 | Outpatient (CLI) | payer MEDICARE, SELFPAY ==
--- NOTE | 2023-05-23 13:00 | CTR_ITS ---
PROCEDURE INFORMATION: Exam: CT Chest With Contrast; Diagnostic Exam date and time: 05/23/2023 1:35 PM Age: 83 years old Clinical indication: Condition or disease; Lung condition and disease; Cancer of the lung; Bilateral; Unspecified; Primary cancer: Lung, throat and skin cancer; Follow-up oncological assessment; Additional info: Follow up, please schedule both cts at the same time and have done TECHNIQUE: Imaging protocol: Diagnostic computed tomography of the chest with contrast. Radiation optimization: All CT scans at this facility use at least one of these dose optimization techniques: automated exposure control; mA and/or kV adjustment per patient size (includes targeted exams where dose is matched to clinical indication); or iterative reconstruction. Contrast material: OMNI 350; Contrast volume: 100 ml; Contrast route: INTRAVENOUS (IV); REPORTING DATA: Count of CT and Cardiac NM exams in prior 12 months: This patient has received 0 known CTs and 0 known cardiac nuclear medicine studies in the 12 months prior to the current study. COMPARISON: CT chest w con* [id number] 04/26/2022 3:45 PM RADIATION DOSE METRICS: Total DLP (mGy-cm): 844.65 FINDINGS: Lungs: There are stable post radiation changes right upper lobe with right paramediastinal soft tissue thickening, atelectasis and bronchiectasis unchanged. There is mild lower lobe bronchiectasis and scattered hypoventilatory changes progressed from previous exam. Pleural spaces: Unremarkable. No pneumothorax. No pleural effusion. Heart: Heart is moderately enlarged and increased in size from previous exam. A small pericardial effusion mildly increased in size from prior study. Mediastinal space: There are chronic granulomatous calcifications within the mediastinum both hilum, stable. There is diffuse esophageal wall thickening most pronounced within the proximal portion of the esophagus more apparent on the today's study concerning for esophagitis. Lymph nodes: No significant mediastinal hilar or axillary lymphadenopathy. Vasculature: Diffuse atherosclerotic changes and tortuosity of the thoracic aorta, stable. Diaphragm: Small hiatal hernia unchanged. Bones/joints: Prior median sternotomy. No underlying osseous lesions detected. Soft tissues: Unremarkable. CT/CT chest w con* [id number] IMPRESSION: 1. Stable post radiation changes right upper lobe. No compelling evidence of recurrent tumor or metastatic disease within the chest. 2. Interval development of mild inflammatory soft eg 0 wall thickening suspicious for esophagitis.. 3. Moderate cardiomegaly with small pericardial effusion mildly progressed from prior study.
--- NOTE | 2023-05-23 13:00 | CTR_ITS ---
PROCEDURE INFORMATION: Exam: CT Neck With Contrast Exam date and time: 05/23/2023 1:35 PM Age: 83 years old Clinical indication: Condition or disease; Patient HX: Lung, skin and throat cancer; Additional info: Follow up TECHNIQUE: Imaging protocol: Computed tomography of the neck with contrast. Radiation optimization: All CT scans at this facility use at least one of these dose optimization techniques: automated exposure control; mA and/or kV adjustment per patient size (includes targeted exams where dose is matched to clinical indication); or iterative reconstruction. Contrast material: OMNI 350; Contrast volume: 100 ml; Contrast route: INTRAVENOUS (IV); REPORTING DATA: Count of CT and Cardiac NM exams in prior 12 months: This patient has received 0 known CTs and 0 known cardiac nuclear medicine studies in the 12 months prior to the current study. COMPARISON: CT chest w con* [id number] 04/26/2022 3:45 PM RADIATION DOSE METRICS: Total DLP (mGy-cm): 844.65 FINDINGS: Pharynx: Unremarkable. No significant tonsillar enlargement. Larynx: Unremarkable. Epiglottis is normal. Prevertebral and retropharyngeal spaces: Unremarkable. Salivary glands: Normal. Glands are normal in size. Thyroid: Normal. No enlarged or calcified nodules. Lymph nodes: Calcified nodes in mediastinum as seen previously. Trachea: Visualized trachea is unremarkable. Lungs: Streaky density right paramediastinal lung from radiation treatments as seen previously. Bones/joints: Calcifications in cartilaginous structures particularly epiglottis, likely treatment change. Soft tissues: Unchanged asymmetry of soft tissues in tongue base slightly more prominent fatty tissue on the right and soft tissue density on the left. Appearance is similar to what was seen on chest CT 04/26/2022. CT/CT neck w con* [id number] IMPRESSION: No acute findings.
[2023-05-23 13:25] LABS: Blood Urea Nitrogen 18 mg/dL (8-23)
[2023-05-23] MEDS: iohexol 350 mg/mL 500 mL Btl (per mL) IV (13:28)
== END 2023-05-23 12:51 | disposition home or self-care (01) ==
LOC: RAD 12:51
PROVIDERS: PCP Family Medicine; Visit Provider Internal Medicine Medical Oncology
DX: C01 Malignant neoplasm of base of tongue (principal); C34.11 Malignant neoplasm of upper lobe, right bronchus or lung
CPT/HCPCS: 70491; 71260; 82565; 84520; 99214; Q9967

== ENCOUNTER 2023-05-28 10:46 | Oncology outpatient (recurring) (ONCR) | payer MEDICARE, SELFPAY ==
[2023-05-28 11:14] VITALS: BP 95/58; PULSE 74; RESP 16; TEMP 36.8; O2SAT 95
[2023-05-28 11:31] LABS: Basophils % 0.6 %; Eosinophils # 0.2 10^3/uL (0.0-0.8); Eosinophils % 6.7 %; Hematocrit 36.9 % (37-53); Lymphocytes # 0.6 10^3/uL (0.8-4.8); Lymphocytes % 20.2 %; Mean Corpuscular HGB Conc 32.5 g/dL (30-55); Mean Corpuscular Hemoglobin 32.9 pg (27-33); Mean Corpuscular Volume 101.1 fl (82-101); Mean Platelet Volume 10.7 fL (7.4-10.4); Monocytes # 0.2 10^3/uL (0.2-0.9); Monocytes % 6.1 %; Neutrophils # 2.06 10^3/uL (1.8-7.7); Neutrophils % 66.1 %; Nucleated Red Blood Cells % 0 %; Platelet Count 87 10^3/cmm (157-399); Red Blood Count 3.65 10^6/uL (3.85-5.65); White Blood Count 3.12 10^3/uL (3.29-11.43)
[2023-05-28 12:05] LABS: Alanine Aminotransferase 12 U/L (0-41); Alkaline Phosphatase 83 U/L (40-130); Anion Gap 11.9 (5-19); Aspartate Amino Transferase 18 U/L (0-40); Blood Urea Nitrogen 17 mg/dL (8-23); Calcium 9.7 mg/dL (8.5-10.5); Carbon Dioxide 27 mmol/L (22-29); Chloride 107 mmol/L (98-107); Globulin 2.5 g/dL (1.3-4.6); Glucose 102 mg/dL (65-115); Osmolality Calculated 296 mOsm/kg (285-295); Potassium 3.9 mmol/L (3.5-5.1); Sodium 142 mmol/L (136-145); Total Bilirubin 0.9 mg/dL (0.15-1.2); Total Protein 6.5 g/dL (6.6-8.7)
== END 2023-06-19 23:59 | disposition home or self-care (01) ==
PROVIDERS: Nurse Practitioner Family; PCP Family Medicine; Visit Provider Internal Medicine Medical Oncology
DX: Z08 Encounter for follow-up examination after completed treatment for malignant neoplasm (principal); Z85.118 Personal history of other malignant neoplasm of bronchus and lung; Z92.21 Personal history of antineoplastic chemotherapy; Z92.3 Personal history of irradiation; C34.11 Malignant neoplasm of upper lobe, right bronchus or lung
CPT/HCPCS: 36415; 80053; 84443; 85025; 99214

== ENCOUNTER → 2023-06-24 13:28 | Outpatient (BNVA) | payer MEDICARE, SELFPAY | PROVIDERS: PCP Family Medicine; Visit Provider Internal Medicine Cardiovascular Disease | DX: I48.19 Other persistent atrial fibrillation (principal); Z98.890 Other specified postprocedural states; I34.0 Nonrheumatic mitral (valve) insufficiency; I36.1 Nonrheumatic tricuspid (valve) insufficiency; I11.0 Hypertensive heart disease with heart failure; I50.32 Chronic diastolic (congestive) heart failure; Z79.01 Long term (current) use of anticoagulants | CPT/HCPCS: 99214 ==

== ENCOUNTER → 2023-12-22 11:00 | Outpatient (BNVA) | payer MEDICARE, SELFPAY | PROVIDERS: PCP Family Medicine; Visit Provider Internal Medicine Cardiovascular Disease | DX: E78.5 Hyperlipidemia, unspecified (principal); R06.02 Shortness of breath | CPT/HCPCS: 36415; 80048; 80076; 83880; 99214 ==

== ENCOUNTER 2023-12-26 12:15 | Oncology outpatient (recurring) (ONCR) | payer MEDICARE, SELFPAY ==
--- NOTE | 2023-12-26 12:45 | USCV_ITS ---
[facility] Age[facility] 83 Gender: M : 1940 Exam Date: 12/26/2023 12:39 Ordering Phys: Chriss Segal MD ([email or web address]) Technologist: Kale Golden [place] [facility] [place]: TR/ MR BP: 110 / 67 HR: 72 Rhythm: Sinus Technical Quality: Adequate MEASUREMENTS (Male / Female) Normal Values 2D ECHO LV Diastolic Diameter PLAX 5.6 cm 4.2 - 5.9 / 3.9 - 5.3 cm IVS Diastolic Thickness 0.9 cm 0.6 - 1.0 / 0.6 - 0.9 cm IVS Systolic Thickness 1.1 cm LVPW Diastolic Thickness 1.6 cm 0.6 - 1.0 / 0.6 - 0.9 cm LVPW Systolic Thickness 2.0 cm LVOT Diameter 2.1 cm LV Ejection Fraction 2D Teich 74.1 % LV Ejection Fraction MOD 2C 59.4 % LV Ejection Fraction 2C AL 59.2 % LA Diameter 6.0 cm RA Systolic Volume 4C AL 78.9 ml RA Systolic Volume 4C MOD 80.9 ml LA Sys Volume AL 110.5 cm cubed LA Sys Volume Index AL 48.3 cm cubed/m squared Aorta at Sinotubular Diameter 3.0 cm M-MODE LA Ao Ratio MM 2.2 AV Cusp Separation MM 1.9 cm DOPPLER AV Peak Velocity 98.0 cm/s LVOT Peak Velocity 52.0 cm/s AV Area Cont Eq vti 2.2 cm squared AV Area Cont Eq pk 1.9 cm squared MV Peak Velocity 348.3 cm/s MV Area PHT 6.5 cm squared Mitral E to A Ratio 3.3 TV Peak Velocity 238.5 cm/s TR Peak Velocity 251.0 cm/s TR Peak Gradient 25.2 mmHg TR Mean Velocity 175.0 cm/s TR Mean Gradient 14.0 mmHg TR Velocity Time Integral 66.4 cm PV Peak Velocity 65.0 cm/s RV Ejection Time 0.3 s FINDINGS Left Ventricle Normal LV size ejection fraction of 59%. Segmental wall motion analysis is somewhat difficult because of the arrhythmia. However no gross abnormalities noted Right Ventricle The right ventricle is normal in size and function. Right Atrium Severely increased right atrial size. Left Atrium Severely increased left atrial size. Mitral Valve Thickened mitral valve. Mild mitral valve regurgitation. Aortic Valve Trace to mild aortic valve regurgitation. Tricuspid Valve Trace to mild tricuspid valve regurgitation. Estimated pulmonary artery peak systolic pressure 30 mmHg Pulmonic Valve Trace pulmonary valve regurgitation. Pericardium No pericardial effusion. Aorta Normal aorta. IVC Inferior vena cava not visualized. CONCLUSIONS Normal LV size ejection fraction of 59%. Segmental wall motion analysis is somewhat difficult because of the arrhythmia. However no gross abnormalities noted. Severe biatrial enlargement thickened mitral valve. Mild mitral valve regurgitation. Trace to mild aortic valve regurgitation. Trace to mild tricuspid valve regurgitation. Estimated pulmonary artery peak systolic pressure 30 mmHg. Trace pulmonary valve regurgitation. There is no pericardial effusion. There are no intracardiac masses. Compared to the study from 10/16/2020, the tricuspid regurgitation appears to be less severe Dr Chriss Segal MD [facility] (Electronically Signed) Final Date: 29 December 2023 09:30 S
== END 2024-01-18 23:59 | disposition home or self-care (01) ==
LOC: RAD 12:16 → ONCMED 02-03 06:14
PROVIDERS: PCP Family Medicine; Visit Provider Internal Medicine Medical Oncology
DX: Z08 Encounter for follow-up examination after completed treatment for malignant neoplasm (principal); Z85.118 Personal history of other malignant neoplasm of bronchus and lung; Z92.21 Personal history of antineoplastic chemotherapy; Z92.3 Personal history of irradiation; C34.11 Malignant neoplasm of upper lobe, right bronchus or lung; R06.09 Other forms of dyspnea
CPT/HCPCS: 93306

== ENCOUNTER 2024-05-26 11:42 | Oncology outpatient (recurring) (ONCR) | payer MEDICARE, SELFPAY ==
[2024-05-26 12:23] LABS: Basophils % 0.6 %; Eosinophils # 0.2 10^3/uL (0.0-0.8); Eosinophils % 5.8 %; Hematocrit 39.1 % (37-53); Lymphocytes # 0.7 10^3/uL (0.8-4.8); Lymphocytes % 22.1 %; Mean Corpuscular HGB Conc 31.7 g/dL (30-55); Mean Corpuscular Hemoglobin 32.3 pg (27-33); Mean Corpuscular Volume 101.8 fl (82-101); Mean Platelet Volume 10.6 fL (7.4-10.4); Monocytes # 0.2 10^3/uL (0.2-0.9); Monocytes % 5.8 %; Neutrophils # 2.14 10^3/uL (1.8-7.7); Neutrophils % 65.7 %; Nucleated Red Blood Cells % 0 %; Platelet Count 87 10^3/cmm (157-399); Red Blood Count 3.84 10^6/uL (3.85-5.65); Red Cell Distribution Width 13.8 % (12.1-15.1); White Blood Count 3.26 10^3/uL (3.29-11.43)
[2024-05-26 12:53] LABS: Alanine Aminotransferase 23 U/L (0-41); Albumin Level 4.2 g/dL (3.5-5.2); Alkaline Phosphatase 91 U/L (40-130); Anion Gap 11.1 (5-19); Aspartate Amino Transferase 24 U/L (0-40); Blood Urea Nitrogen 13 mg/dL (8-23); Calcium 9.8 mg/dL (8.5-10.5); Carbon Dioxide 30 mmol/L (22-29); Chloride 104 mmol/L (98-107); Creatinine Clr Calc Pharmacy 71.8207; Globulin 2.3 g/dL (1.3-4.6); Glucose 110 mg/dL (65-115); Osmolality Calculated 293 mOsm/kg (285-295); Potassium 4.1 mmol/L (3.5-5.1); Sodium 141 mmol/L (136-145); Thyroid Stimulating Hormone 3.03 uIU/mL (0.27-4.20); Total Bilirubin 0.7 mg/dL (0.15-1.2); Total Protein 6.5 g/dL (6.6-8.7)
== END 2024-06-19 23:59 | disposition home or self-care (01) ==
PROVIDERS: Nurse Practitioner Family; PCP Family Medicine; Visit Provider Internal Medicine Medical Oncology
DX: Z85.118 Personal history of other malignant neoplasm of bronchus and lung; Z92.21 Personal history of antineoplastic chemotherapy; Z92.3 Personal history of irradiation; C34.11 Malignant neoplasm of upper lobe, right bronchus or lung; Z53.9 Procedure and treatment not carried out, unspecified reason; C01 Malignant neoplasm of base of tongue; I10 Essential (primary) hypertension
CPT/HCPCS: 36415; 80053; 84443; 85025; 99213

== ENCOUNTER → 2024-06-28 14:02 | Outpatient (BNVA) | payer MEDICARE, SELFPAY | PROVIDERS: PCP Family Medicine; Visit Provider Internal Medicine Cardiovascular Disease | DX: I25.5 Ischemic cardiomyopathy (principal); I48.19 Other persistent atrial fibrillation; I11.0 Hypertensive heart disease with heart failure; I50.32 Chronic diastolic (congestive) heart failure; R00.1 Bradycardia, unspecified; I36.1 Nonrheumatic tricuspid (valve) insufficiency; I71.20 Thoracic aortic aneurysm, without rupture, unspecified; Z79.01 Long term (current) use of anticoagulants | CPT/HCPCS: 99214 ==

== ENCOUNTER 2024-11-23 15:12 | Outpatient (CLI) | payer MEDICARE, SELFPAY ==
--- NOTE | 2024-11-23 15:24 | CT_ITS ---
WS: [id number] CT chest w con* [id number] HISTORY: PRIMARY LUNG CANCER TECHNIQUE: Axial imaging performed through the thorax. Coronal and sagittal reformats are submitted. All CT scans at [facility] use at least one of these dose optimization techniques: automated exposure control; mA and/or kV adjustment per patient size (includes targeted exams where dose is matched to clinical indication); or iterative reconstruction. CONTRAST: Omnipaque 350; 100 mL IV. DLP: 461.70 mGy.cm COMPARISON: 05/23/2023 Lungs and central airway: Volume loss with postradiation changes in the medial RIGHT upper lobe are stable. There is bronchiectasis with pleural thickening and fibrosis and scarring. RIGHT apical thickening. Chronic emphysema. No new pulmonary mass identified. Pleura: Normal. No pleural effusion. Heart and pericardium: Moderate cardiomegaly. Very small amount of pericardial thickening or fluid which is decreased since 05/23/2023. Prior CABG. Mediastinum and pito: No adenopathy. Vessels: Extensive atherosclerotic plaque within the thoracic aorta. No dilatation. Pulmonary arteries are slightly prominent. No filling defects. Chest wall and lower neck: Prior median sternotomy. Surgical clips are noted in the RIGHT lower neck. Upper abdomen: Small to moderate hiatal hernia. Mild soft tissue edema. No adrenal mass identified. Splenic and hepatic granulomata. Splenic artery calcifications. Osseous structures: Degenerative scoliosis. No destructive bone lesions. CT/CT chest w con* [id number] IMPRESSION: 1. Stable postradiation changes in the medial RIGHT upper lobe. No recurrent m ass or adenopathy identified. 2. Prior CABG and sternotomy. 3. Chronic emphysema. 4. Moderate cardiomegaly. 5. Advanced atherosclerosis thoracic aorta.
[2024-11-23] MEDS: iohexol 350 mg/mL 500 mL Btl (per mL) IV (15:49)
== END 2024-11-23 15:13 | disposition home or self-care (01) ==
PROVIDERS: PCP Family Medicine; Visit Provider Family Medicine
DX: C34.91 Malignant neoplasm of unspecified part of right bronchus or lung (principal); Z98.890 Other specified postprocedural states; J43.8 Other emphysema; I51.7 Cardiomegaly; I70.0 Atherosclerosis of aorta; J47.9 Bronchiectasis, uncomplicated; J92.9 Pleural plaque without asbestos; J84.10 Pulmonary fibrosis, unspecified; J98.4 Other disorders of lung; R91.8 Other nonspecific abnormal finding of lung field; R93.1 Abnormal findings on diagnostic imaging of heart and coronary circulation; K44.9 Diaphragmatic hernia without obstruction or gangrene; D73.89 Other diseases of spleen; K75.3 Granulomatous hepatitis, not elsewhere classified; I70.8 Atherosclerosis of other arteries; M41.80 Other forms of scoliosis, site unspecified
CPT/HCPCS: 71260

== ENCOUNTER → 2024-12-14 13:03 | Outpatient (BNVA) | payer MEDICARE, SELFPAY | PROVIDERS: PCP Family Medicine; Visit Provider Dermatology | DX: C44.319 Basal cell carcinoma of skin of other parts of face (principal); C44.329 Squamous cell carcinoma of skin of other parts of face; Z85.828 Personal history of other malignant neoplasm of skin; D48.5 Neoplasm of uncertain behavior of skin; L57.0 Actinic keratosis | CPT/HCPCS: 11102; 17000; 69100; 99204 ==

== ENCOUNTER → 2025-01-03 09:26 | Outpatient (BNVA) | payer MEDICARE, SELFPAY | PROVIDERS: PCP Family Medicine; Visit Provider Dermatology | DX: C44.229 Squamous cell carcinoma of skin of left ear and external auricular canal (principal); L57.0 Actinic keratosis; C44.319 Basal cell carcinoma of skin of other parts of face | CPT/HCPCS: 12054; 17311; 99213 ==

== ENCOUNTER → 2025-02-01 09:25 | Outpatient (BNVA) | payer MEDICARE, SELFPAY | PROVIDERS: PCP Family Medicine; Visit Provider Dermatology | DX: Z08 Encounter for follow-up examination after completed treatment for malignant neoplasm (principal); Z85.828 Personal history of other malignant neoplasm of skin; C44.229 Squamous cell carcinoma of skin of left ear and external auricular canal | CPT/HCPCS: 11643; 14060; 99212 ==

== ENCOUNTER → 2025-05-06 10:14 | Outpatient (BNVA) | payer MEDICARE, SELFPAY | PROVIDERS: PCP Family Medicine; Visit Provider Dermatology | DX: L98.8 Other specified disorders of the skin and subcutaneous tissue (principal); L73.8 Other specified follicular disorders; Z08 Encounter for follow-up examination after completed treatment for malignant neoplasm; Z85.828 Personal history of other malignant neoplasm of skin; L57.0 Actinic keratosis | CPT/HCPCS: 17000; 99213 ==